=== PATIENT | female | born 1945 | race Hispanic/Latino ===

== ENCOUNTER 2017-06-03 07:34 | Outpatient (CLI) | payer MEDICARE ==
--- NOTE | 2017-06-03 11:45 | PET ---
PET CT: HISTORY: 72-year-old female with right breast cancer. Exam requested for restaging. Patient also has a history of thyroid cancer, status post ablation. Patient's last chemotherapy was a week ago. TECHNIQUE: PET scanning with CT attenuation correction was performed from the base of the brain through the prox imal thighs following the intravenous administration of 12.5 mCi F18-FDG in the right antecubital fos sa. Imaging was performed after an uptake interval of 59 minutes. COMPARISON: PET CT dated 12/29/16. FINDINGS: No peter hypermetabolism is seen in the axilla, internal mammary, hilar, mediastinal, cervical, or ab dominopelvic lymph nodes. No hypermetabolic pulmonary nodules, liver, adrenal, or skeletal lesions ar e identified. The previously noted foci of increased FDG localization in the skeleton have resolved in the interim. There is physiologic activity in the GI and tracts, and the visualized portions of the brain. The focally increased uptake inferior to the bladder is likely a urethral diverticulum. The CT scan used for attenuation correction demonstrates no evidence of pleural effusions or ascites. There is fatty infiltration of the liver. Postop changes in the right breast and large pelvic mass ( without abnormal FDG localization) remain stable. IMPRESSION: No evidence of metastatic disease. Excellent response to therapy since 12/30/16. POS: [facility]
== END 2017-06-03 07:35 | disposition home or self-care (01) ==
LOC: PET 07:34
PROVIDERS: ATTEND Internal Medicine Hematology & Oncology
DX: C50.811 Malignant neoplasm of overlapping sites of right female breast (principal)
CPT/HCPCS: 78815; A9552

== ENCOUNTER 2017-08-19 08:06 | Day surgery (SDC) | payer MEDICARE ==
[2017-08-19] MEDS ORDERED: Sodium Chloride 0.9% 40 ML ONE (08:23)
[2017-08-19] MEDS ORDERED: Acetaminophen 500 MG TAB PO SCH (08:30)
[2017-08-19] MEDS ORDERED: diphenhydrAMINE 25 MG CAP PO SCH (08:30)
[2017-08-19 11:39] LABS: Hemoglobin 8.2 g/dL (12.0-16.0)
[2017-08-19 17:09] VITALS: BP 146/68; TEMP 98.5
== END 2017-08-19 17:09 | disposition home or self-care (01) ==
LOC: ONC/OP 08:06
PROVIDERS: ATTEND Internal Medicine Hematology & Oncology
PROC: 30233N1 Transfusion of Nonautologous Red Blood Cells into Peripheral Vein, Percutaneous Approach (ICD-10-PCS; principal; 2017-08-19)
DX: D64.9 Anemia, unspecified (principal); D69.6 Thrombocytopenia, unspecified
CPT/HCPCS: 36430; 77412; 85014; 85018; 86850; 86900; 86901; A4216; P9016

== ENCOUNTER 2017-08-22 23:11 | Inpatient (IN) | payer MEDICARE ==
--- NOTE | 2017-08-22 23:39 | RAD ---
PORTABLE CHEST ONE VIEW: Date: 08-22-17 Time: 11:23 a.m. History: Fever. FINDINGS: Comparison is made with exam of 02-14-13. The heart size is normal. There is a left subclavian central line with tip in the direction of the le ft brachiocephalic vein and SVC. No pneumothoraces are seen. There is no evidence of lobar consolidat ion or pleural effusions. IMPRESSION: No acute process. POS: [facility]
[2017-08-23 00:28] LABS: Hemoglobin 8.7 g/dL (12.0-16.0); Mean Corpuscular HGB CONC 35.4 g/dL (32.0-36.0); Mean Corpuscular Hemoglobin 31.5 pg (27.0-31.0); RBC Distribution Width 19.8 % (11.5-14.5); Red Blood Cell (RBC) Count 2.77 mill/uL (4.20-5.40); White Blood Cell (WBC) Count 2.2 thou/uL (4.8-10.8)
[2017-08-23 00:34] LABS: #Lymphocytes 0.5 thou/uL (1.20-3.40); #Monocytes 0.2 thou/uL (0.11-0.59); #Neutrophils 1.4 thou/uL (1.40-6.50); %Basophils 0.8 % (0.0-1.0); %Eosinophils 1.8 % (0.0-10.0); %Lymphocytes 23.4 % (21.0-51.0); %Monocytes 7.7 % (0.0-10.0); %Neutrophils 66.3 % (42.0-75.0); Mean Platelet Volume 13.8 fL (7.4-10.4); Platelet Count 17 thou/uL (130-400)
[2017-08-23 00:36] LABS: ALT (SGPT) 68 U/L (8-55); AST (SGOT) 171 U/L (5-34); Albumin 3.2 g/dL (3.4-4.8); Alkaline Phosphatase 124 U/L (40-150); Anion Gap 13 mmol/L (10-20); BUN (Urea Nitrogen) 22 mg/dL (9.8-20.1); Bilirubin, Total 0.4 mg/dL (0.2-1.2); Calc. Creatinine Clearance 0 mL/min (70-130); Carbon Dioxide 17 mmol/L (23-31); Chloride 106 mmol/L (98-107); Estimated GFR-MDRD 48; Globulin 5.2 g/dL (2.4-3.5); Glucose 123 mg/dL (80-115); Lipase 37 U/L (8-78); Magnesium 1.5 mg/dL (1.6-2.6); Potassium 3.9 mmol/L (3.5-5.1); Protein, Total 8.4 g/dL (6.0-8.3); Sodium 132 mmol/L (136-145)
[2017-08-23 00:40] LABS: Troponin I 0.092 ng/mL (< 0.028)
[2017-08-23 00:50] LABS: PLT Morphology Comment Appears Decreased
[2017-08-23 01:01] LABS: CKMB 9.4 ng/mL (0-6.6)
[2017-08-23] MEDS ORDERED: Cefepime 2 GM/10 ML SYR ONE (01:48)
[2017-08-23 01:58] LABS: Bilirubin Negative (Negative); Blood, Urine Moderate (Negative); Glucose, Urine (Dipstick) Negative (Negative); Leukocyte Trace (Negative); Nitrite Negative (Negative); Protein, Urine (Dipstick) 30 mg/dL (Neg-Trace); Specific Gravity, Urine 1.025 (1.005-1.030); Urobilinogen 0.2 mg/dL (0.2-1.0)
[2017-08-23 01:59] LABS: Bacteria/HPF Rare-Few HPF (None Seen); Clarity Hazy (Clear); Other Microscopic Description Less than 2 mL rec'd; RBC/HPF 0-3 HPF (0-3); WBC/HPF 0-3 HPF (0-3)
[2017-08-23] MEDS ORDERED: Ondansetron ODT 4 MG TAB SL PRN (03:44)
[2017-08-23] MEDS ORDERED: Acetaminophen 325 MG TAB PO PRN (03:44)
[2017-08-23] MEDS ORDERED: Ondansetron HCl/PF 4 MG/2 ML Vial IVP PRN (03:44)
[2017-08-23] MEDS: Sodium Chloride 0.9% 1,000 ML IV SCH ×3 (03:59→23:21)
[2017-08-23 04:39] VITALS: BMI 29.7
[2017-08-23] MEDS: HYDROcodone/Acetaminophen 5/325 mg Tablet PO PRN (05:19)
[2017-08-23] MEDS: Levothyroxine Sodium 125 MCG TAB PO SCH (05:21)
[2017-08-23 06:01] LABS: Troponin I 0.073 ng/mL (< 0.028)
[2017-08-23 06:05] LABS: CKMB 27.5 ng/mL (0-6.6)
[2017-08-23] MEDS: Dronabinol 2.5 MG CAP PO SCH ×2 (07:53→18:30)
[2017-08-23] MEDS ORDERED: Cefepime 2 GM in Sodium Chloride 0.9% 100 ML IVPB SCH (09:00)
[2017-08-23] MEDS: Famotidine 20 MG TAB PO SCH ×2 (09:11→20:09)
[2017-08-23] MEDS: Docusate 100 MG CAP PO SCH ×2 (09:11→20:09)
--- NOTE | 2017-08-23 10:59 | RAD ---
THREE VIEWS OF THE RIGHT SHOULDER: Indication: Right shoulder pain. Comparison: None. FINDINGS: There is moderate AC joint osteoarthrosis. There is mild glenohumeral osteoarthrosis. There are metal lic snaps that overlie the distal right clavicle and superior glenoid. There is partial visualization of a left subclavian central venous catheter. Visualized right lung is clear. IMPRESSION: 1. No acute osseous abnormality. 2. AC and glenohumeral joint osteoarthrosis. POS: [facility]
--- NOTE | 2017-08-23 11:11 | RAD ---
THREE VIEWS OF THE LEFT SHOULDER: INDICATION: Left shoulder pain. FINDINGS: There is mild to moderate AC joint osteoarthrosis. There is mild glenohumeral osteoarthrosis. There is osteopenia involving the visualized skeletal structures. There is a left subclavian chest wall p ort in place. Visualized left lung is clear. IMPRESSION: 1. No acute osseous abnormality. 2. Diffuse osteopenia. POS: [facility]
--- NOTE | 2017-08-23 12:37 | HP ---
CHIEF COMPLAINT: Generalized body aches and pains and fall. PRIMARY CARE PHYSICIAN: Dar Wood MD HISTORY OF PRESENT ILLNESS: The patient is a very pleasant 72-year-old female with a history of ja st cancer status post chemo and recent radiation, her last radiation dose was last Wednesday, who presen david to the hospital for generalized weakness and fall. The patient states that she went to the bathr oom and could not get herself up and kind of fell down to her knees. The patient also states that ness moore has been having body aches and pains all over. Denies any fevers at home; however, did say that ness moore did have some chills. Denies any shortness of breath or chest pain or chest pressure. The patient states that she has not been eating well for the past few months, does not have much of an appetite. The patient normally in a day eats a bowl of cereal and a bowl of fruit. She also has been having decreased urine output according to her. The patient lives with a friend. The patient states that s he has noticed her clothes are much more looser than what they used to be. In the ER, the patient was found to have a temperature of 102.9; however, the source of her temperatu re seems to be unclear. PAST MEDICAL HISTORY: 1. Hypertension. 2. History of breast cancer. 3. Diverticulitis and thyroid cancer. PAST SURGICAL HISTORY: She has surgical cholecystectomy and thyroidectomy. SOCIAL HISTORY: She denies any drinking alcohol, smoking, or drug use. ALLERGIES: She has no known allergies. CURRENT MEDICATIONS: She takes Choudrant 5/325 mg one tab every 4-6 hours p.r.n., fentanyl patch changed every 72 hours 25 mcg, Compazine 10 mg q.6 hours p.r.n. for nausea, tramadol 50 mg q.8 hours p.r.n., potassium chloride 10 mEq daily, levothyroxine 125 mcg daily, and Motrin 600 mg as needed. PHYSICAL EXAMINATION: VITAL SIGNS: Temperature in the ER was 99.3, respirations 21, pulse of 89, blood pressure of 125/63, and 99% on room air. GENERAL: She is awake, alert, does appear little malnourished, oriented x3. CARDIOVASCULAR: S1, S2 present. No murmurs, rubs or gallops. RESPIRATORY: Lungs clear to auscultation. No rhonchi or wheezes noted. ABDOMEN: Soft, nontender. Bowel sounds present x2. EXTREMITIES: No edema. HEENT: She does have some temporal wasting. Mucous membranes appear to be dry. LABORATORY DATA: Are as the following: Urine appeared to be pretty relatively normal. Chemistry: Sodium of 132, potassium of 3.9, BUN of 22, creatinine of 1.13. Troponin was mildly elevated at 0.09 2. Magnesium was 1.5. WBCs of 2.2, hemoglobin of 8.7, hematocrit of 24.6, platelets of 17,000. No bands were noted. She had an x-ray which appeared very clear on examination. She had an EKG done, w hich did not indicate any ST abnormalities. ASSESSMENT AND PLAN: The patient is a 72-year-old female who presents to the hospital with fall and generalized weakness. 1. Dehydration. We will start the patient on some gentle IV hydration. 2. Acute kidney injury. We are hoping that the gentle hydration will resolve the acute kidney injur y most likely it is prerenal. We will continue to monitor. 3. Malnutrition. The patient states that she does not have an appetite. We will consult palliative care for symptom management for this patient. Also, we will start patient on Marinol for appetite s timulation. She has not been eating very much. 4. Fever, unclear source. Chest x-ray does not indicate any acute process. Urine looks pretty franco r. She also was swabbed for flu, which was negative. I will start her on empiric antibiotics of cef epime for now. She did complain of some bilateral shoulder pain. We will check x-rays to make sure that there are no abnormalities and the patient does not have any diarrhea either. We will continue to monitor. 5. Pancytopenia. Platelets from her baseline has worsened, they are 17,000 now. We will type and s creen and give her bag of platelets. We will also consult Oncology. The patient currently is not ne utropenic, so she is pancytopenic. We will continue to monitor. 6. Deep venous thrombosis prophylaxis. We will put patient on sequential compression devices and al so we will get physical therapy to come evaluate this patient for possible, she will might need some inpatient rehab; however, her generalized weakness could just be most likely secondary to her malnutr ition. The patient is a DNR.
--- NOTE | 2017-08-23 13:04 | PDOC.PN ---
- Subjective Encounter Start Date: 08/23/17 Encounter Start Time: 13:02 Patient seen and examined. No acute event since admit. She denies any chest pain and no elevated temperature reported. Per nurse, abnormal troponin withou chest pain, low platelets without bleeding, no fever. - Objective Resuscitation Status: Resuscitation Status DNR:Do Not Resuscitate MAR Reviewed: Yes Vital Signs & Weight: Vital Signs (12 hours) Temp Pulse Pulse Resp BP BP Pulse Ox 08/23/17 07:20 98.0 F 76 22 H 145/65 H 95 08/23/17 06:25 98.3 F 80 18 120/56 L 08/23/17 05:42 97.9 F 18 156/72 H 98 08/23/17 05:08 99.0 F 80 16 132/61 98 08/23/17 04:00 97.9 F 83 18 98 08/23/17 03:40 97.9 F 83 18 127/60 98 Weight Admit Weight 179 lb Weight 179 lb I&O: 08/22/17 08/23/17 08/24/17 06:59 06:59 06:59 Intake Total 250 Balance 250 Result Diagrams: 08/22/17 23:47 08/22/17 23:47 Radiology Reviewed by me: Yes EKG Reviewed by me: Yes (No ST or T wave changes) Phys Exam - Physical Examination Constitutional: NAD Patient cooperative, oriented x 3 HEENT: PERRLA, moist MMs, sclera anicteric, oral pharynx no lesions Neck: no nodes, no JVD, supple, full ROM Respiratory: no wheezing, no rales, no rhonchi, clear to auscultation bilateral Cardiovascular: RRR, no significant murmur, no rub Gastrointestinal: soft, non-tender, no distention, positive bowel sounds Musculoskeletal: no edema, pulses present full ROM Psychiatric: normal affect, A&O x 3 Skin: no rash, normal turgor, cap refill <2 seconds -: General pallor Dx/Plan (1) Fever and neutropenia Code(s): D70.9 - NEUTROPENIA, UNSPECIFIED; R50.81 - FEVER PRESENTING WITH CONDITIONS CLASSIFIED ELSEWHERE Status: Acute Plan: Blood cultures obtained. Continue Cefepime. Will defer neupogen to oncology. (2) KENROY (acute kidney injury) Code(s): N17.9 - ACUTE KIDNEY FAILURE, UNSPECIFIED Status: Acute Plan: Due to dehydration. Continue gentle IVF, monitor GFR and adjust meds to GFR. Avoid nephrotoxins (3) Dehydration Code(s): E86.0 - DEHYDRATION Status: Acute Plan: No clear etiology. Continue AVF (4) Thrombocytopenia Code(s): D69.6 - THROMBOCYTOPENIA, UNSPECIFIED Status: Chronic Plan: Acute on chronic. Likely chemo induced. No evidence of bleeding. Transfuse as needed. (5) Pancytopenia due to chemotherapy Code(s): D61.810 - ANTINEOPLASTIC CHEMOTHERAPY INDUCED PANCYTOPENIA Status: Chronic Plan: Chemo induced. (6) Low TSH level Code(s): R94.6 - ABNORMAL RESULTS OF THYROID FUNCTION STUDIES Status: Acute Plan: Sick thyroid syndrome or subclinical hyperthyroid. Will check FT4 (7) Elevated troponin I level Code(s): R74.8 - ABNORMAL LEVELS OF OTHER SERUM ENZYMES Status: Acute Plan: No chest pain. Likely radiotherapy induced. (8) Hyponatremia Code(s): E87.1 - HYPO-OSMOLALITY AND HYPONATREMIA Status: Acute Plan: Due to dehydration. Monitor. (9) Hyperglycemia Code(s): R73.9 - HYPERGLYCEMIA, UNSPECIFIED Status: Acute Plan: Not clear. No h/o diabetes. Check A1c (10) Metastatic breast carcinoma Code(s): C50.919 - MALIGNANT NEOPLASM OF UNSP SITE OF UNSPECIFIED FEMALE BREAST Status: Chronic Plan: Poor alf prognosis (11) Moderate protein-calorie malnutrition Code(s): E44.0 - MODERATE PROTEIN-CALORIE MALNUTRITION Status: Chronic Plan: Due to chronic illness. (12) Elevated liver enzymes Code(s): R74.8 - ABNORMAL LEVELS OF OTHER SERUM ENZYMES Status: Acute Plan: Not clear. Monitor liver enzymes. (13) Near syncope Status: Acute Plan: Not clear etiology. PT acute evaluation. - Plan See above individual plans. Continue current care. Discussed with patient. * . Code: DNR Core; SCDs due to thrombocytopenia Disposition; medical unit. Prognosis; long term care pharmacist poor Expected discharge; to be determined Total time spent; 35 minutes
[2017-08-23] MEDS: Cefepime 2 GM, Syringe 2.5 ML in Sodium Chloride 0.9% 10 ML SLOW IVP SCH (14:37)
[2017-08-23] MEDS: traMADol HCl 50 MG TAB PO PRN (14:40)
--- NOTE | 2017-08-23 16:11 | CON ---
DATE OF CONSULTATION: 08/23/2017 REASON FOR CONSULTATION: Breast cancer. HISTORY OF PRESENT ILLNESS: Ms. Green is a 72-year-old female who was diagnosed with met astatic breast cancer in 12/2012. She has undergone multiple chemo treatments, her last being weekly Taxol which ended in 05/2017. She had initial improvement confirmed by PET, but developed several s mall nodules in the right breast. She was started on radiation to her breast. She developed pancyto penia after the initiation of radiation and has not yet recovered. She was last seen in our office o n 08/16/2017 where her white count was 3. Her hemoglobin was 7.1 and her platelet count was 25,000. She was transfused 1 unit of packed rbc's. Over the weekend, she began to have generalized aches an d pains with a fever up to 102. She presented to the emergency room for evaluation. Lab done in the ER showed an ANC of 1.4. She was afebrile on admission. She did receive a dose of vancomycin and i s currently on cefepime. Her chemistry showed a mildly elevated creatinine. The patient has had ext remely poor appetite over the last few weeks with several pound weight loss. She was admitted for IV fluids and is feeling better. Her platelets were 17,000 on admission. She has received a unit of p latelets this morning. She denies any chest pain or shortness of breath. No abdominal discomfort. No GI bleeding. She does complain of a headache. She states that her left arm is slightly weaker th an her right, but no blurred vision. No facial droop noted. PAST MEDICAL HISTORY: 1. Metastatic breast cancer. 2. Hypertension. 3. Hypothyroidism. PAST SURGICAL HISTORY: 1. Cholecystectomy. 2. MediPort placement. 3. Right hand surgery. 4. 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 ALLERGIES: No known drug allergies. HOME MEDICATIONS: 1. Amlodipine 5 mg daily. 2. Duragesic 25 mcg every 3 days. 3. Synthroid 125 mcg daily. 4. Tramadol p.r.n. pain. FAMILY HISTORY: Her sister had thyroid cancer. No family history of breast or ovarian cancer. SOCIAL HISTORY: Single, lives with her boyfriend, has 3 children. No smoking, alcohol or illicit dr ug use. REVIEW OF SYSTEMS: Twelve point review of systems is negative except for noted in HPI. PHYSICAL EXAMINATION: VITAL SIGNS: Temperature is 97.9 with T-max of 99 since admission, heart rate is 97, respiratory rat e 18, BP is 173/74. She is 93% on room air. GENERAL: Well-developed, well-nourished female in no acute distress. HEENT: Normocephalic, atraumatic. Pupils equal and reactive to light. NECK: Supple. CARDIOVASCULAR: Regular rate and rhythm. LUNGS: Clear. ABDOMEN: Soft, nontender, bowel sounds are positive. EXTREMITIES: No clubbing, cyanosis or edema. SKIN: She has radiation changes to her right breast. HEMATOLOGIC: No petechia or purpura. NEUROLOGICAL: Nonfocal. PSYCHIATRIC: The patient is alert and oriented. PERTINENT LABORATORY AND X-RAYS: Current WBCs 2.2, hemoglobin 8.7, hematocrit 24.6, platelet count i s 17,000 prior to transfusion. Neutrophils are 66%, lymphocytes 23%. Her ANC is 1.4. Sodium 132, p otassium 3.9, chloride 106, CO2 is 17, BUN is 22, creatinine 1.13, magnesium is 1.5. Lactic acid 1.4 , calcium 10, total bilirubin is 0.4, AST is 171, ALT 68, alkaline phosphatase is 124. Serum total p rotein 8.4, albumin 3.2, globulin 5.2 and CK-MB is 27.5, troponin 0.073. Radiology per HPI. IMPRESSION: 1. Metastatic breast cancer on recently completed radiation. 2. Pancytopenia secondary to #1. 3. Dehydration. 4. Acute kidney injury. DISCUSSION: The patient has been started on IV fluids. She has been given a unit of platelets. She does feel better today, her only complaint is headache and some left arm weakness. We will just claude ck a brain CT and continue supportive care. Thank you for the consult.
--- NOTE | 2017-08-23 17:08 | CT ---
CT BRAIN WITH AND WITHOUT CONTRAST: INDICATIONS: History of breast cancer and headaches. CONTRAST: Isovue 70 mL was utilized for the exam. COMPARISON: Comparisons are available from a CT of the brain without contrast, dated 02/04/2013. TECHNIQUE: Multiple CT images were obtained of the brain with and without contrast. FINDINGS: No definite acute infarct, hemorrhage, or hydrocephalus is present. The septum pellucidum and third ventricle are midline. There is a 1.3 cm extraaxial enhancing mass lesion overlying the right fronta l convexity, on image 17 of series 4. No additional focus of abnormal enhancement is demonstrated. IMPRESSION: Extraaxial enhancing mass lesion overlying the right frontal convexity, measuring up to 1.3 cm. Appe ars new from comparison in 2012. In light of the patient's history of breast malignancy, dural based metastatic disease cannot be entirely excluded. Recommend further evaluation with MRI brain with an d without contrast. CODE T POS: [facility]
[2017-08-23] MEDS ORDERED: Iopamidol 370 76% 100 ML VIAL ONE (17:50)
[2017-08-24] MEDS: Cefepime 2 GM, Syringe 2.5 ML in Sodium Chloride 0.9% 10 ML SLOW IVP SCH ×2 (01:10→14:13)
[2017-08-24] MEDS: Levothyroxine Sodium 125 MCG TAB PO SCH (05:00)
[2017-08-24 06:32] LABS: Hemoglobin 7.3 g/dL (12.0-16.0); Hemoglobin A1c 5.7 % (4.0-6.0); Mean Corpuscular HGB CONC 35.4 g/dL (32.0-36.0); Mean Corpuscular Hemoglobin 31.7 pg (27.0-31.0); Mean Corpuscular Volume 89.5 fl (81.0-99.0); Mean Platelet Volume 9.9 fL (7.4-10.4); Platelet Count 48 thou/uL (130-400); RBC Distribution Width 19.8 % (11.5-14.5); Red Blood Cell (RBC) Count 2.31 mill/uL (4.20-5.40); White Blood Cell (WBC) Count 1.9 thou/uL (4.8-10.8)
[2017-08-24 06:45] LABS: ALT (SGPT) 75 U/L (8-55); AST (SGOT) 175 U/L (5-34); Albumin 2.9 g/dL (3.4-4.8); Alkaline Phosphatase 94 U/L (40-150); Anion Gap 11 mmol/L (10-20); BUN (Urea Nitrogen) 12 mg/dL (9.8-20.1); Bilirubin, Total 0.5 mg/dL (0.2-1.2); Calc. Creatinine Clearance 95 mL/min (70-130); Calcium 9.9 mg/dL (7.8-10.44); Carbon Dioxide 17 mmol/L (23-31); Chloride 108 mmol/L (98-107); Estimated GFR-MDRD 81; Globulin 4.7 g/dL (2.4-3.5); Glucose 128 mg/dL (80-115); Potassium 3.2 mmol/L (3.5-5.1); Protein, Total 7.6 g/dL (6.0-8.3); Sodium 133 mmol/L (136-145)
[2017-08-24] MEDS: Potassium Chloride 20 MEQ TAB PO SCH ×2 (09:01→17:43)
[2017-08-24] MEDS: Famotidine 20 MG TAB PO SCH ×2 (09:01→21:01)
[2017-08-24] MEDS: Docusate 100 MG CAP PO SCH ×2 (09:02→21:03)
[2017-08-24] MEDS: Amlodipine 5 MG TAB PO SCH (09:02)
[2017-08-24] MEDS: Dronabinol 2.5 MG CAP PO SCH ×2 (09:02→18:37)
[2017-08-24 09:31] LABS: Band 24 % (5-11); Lymphocytes 26 % (21-51); MDiff Complete? YES; Monocytes 4 % (0-10); Neutrophil 46 % (42-75); PLT Morphology Comment Appears Decreased; Polychromasia SLIGHT = 2-3 cells (100X) (0-2/hpf); Rouleaux Formation SLIGHT = 1-5 cells (100X) (None Seen)
--- NOTE | 2017-08-24 10:19 | PDOC.PN ---
- Subjective Encounter Start Date: 08/24/17 Encounter Start Time: 10:25 Subjective: Patient has no complaints today and no acute events overnight. -: She denies any febrile episodes and reports feeling better today. - Objective Resuscitation Status: Resuscitation Status DNR:Do Not Resuscitate MAR Reviewed: Yes Vital Signs & Weight: Vital Signs (12 hours) Temp Pulse Resp BP BP Pulse Ox 08/24/17 09:02 82 144/65 H 08/24/17 07:35 98.4 F 82 16 144/65 H 94 L 08/24/17 03:52 99.5 F 08/23/17 23:47 99.7 F H 91 16 137/68 98 Weight Admit Weight 179 lb Weight 179 lb I&O: 08/23/17 08/24/17 08/25/17 06:59 06:59 06:59 Intake Total 250 480 Balance 250 480 Result Diagrams: 08/24/17 06:16 08/24/17 06:16 Phys Exam - Physical Examination Constitutional: NAD HEENT: PERRLA, moist MMs, sclera anicteric, oral pharynx no lesions Neck: no JVD, supple, full ROM Respiratory: no wheezing, no rales, no rhonchi, clear to auscultation bilateral Cardiovascular: RRR, no significant murmur, no rub Gastrointestinal: soft, non-tender, no distention, positive bowel sounds Musculoskeletal: no edema, pulses present Neurological: non-focal, moves all 4 limbs Psychiatric: normal affect, A&O x 3 Skin: no rash, normal turgor Dx/Plan (1) Fever and neutropenia Code(s): D70.9 - NEUTROPENIA, UNSPECIFIED; R50.81 - FEVER PRESENTING WITH CONDITIONS CLASSIFIED ELSEWHERE Status: Acute Comment: Afebrile, Cultures negative. Continue Cefepime. Might need Neupogen (2) Pancytopenia due to chemotherapy Code(s): D61.810 - ANTINEOPLASTIC CHEMOTHERAPY INDUCED PANCYTOPENIA Status: Chronic Comment: Acute on chronic, likely worsened by neutropenic fever. Has received platelet transfusion. Platelet count improved today. Will continue to monitor. (3) Elevated liver enzymes Code(s): R74.8 - ABNORMAL LEVELS OF OTHER SERUM ENZYMES Status: Acute Comment: Likely 2/2 underlying malignant process. Will monitor. (4) Hyponatremia Code(s): E87.1 - HYPO-OSMOLALITY AND HYPONATREMIA Status: Acute Comment: Slightly improved. Will monitor. (5) Low TSH level Code(s): R94.6 - ABNORMAL RESULTS OF THYROID FUNCTION STUDIES Status: Acute Comment: Free T4 WNL. (6) Metastatic breast carcinoma Code(s): C50.919 - MALIGNANT NEOPLASM OF UNSP SITE OF UNSPECIFIED FEMALE BREAST Status: Chronic (7) Moderate protein-calorie malnutrition Code(s): E44.0 - MODERATE PROTEIN-CALORIE MALNUTRITION Status: Chronic Comment: Continue nutritional supplements. (8) KENROY (acute kidney injury) Code(s): N17.9 - ACUTE KIDNEY FAILURE, UNSPECIFIED Status: Resolved (9) Dehydration Code(s): E86.0 - DEHYDRATION Status: Resolved (10) Hypokalemia Code(s): E87.6 - HYPOKALEMIA Status: Acute Comment: Replete as necessary. (11) Near syncope Status: Resolved (12) Elevated troponin I level Code(s): R74.8 - ABNORMAL LEVELS OF OTHER SERUM ENZYMES Status: Acute Comment: Trending down, likely 2/2 renal dysfunction. Remains chest pain free, - Plan cont current plan of care, PT/OT, out of bed/ambulate, DVT proph w/SCDs * . Review of Systems - Medications/Allergies Allergies/Adverse Reactions: Allergies Allergy/AdvReac Type Severity Reaction Status Date / Time No Known Allergies Allergy Verified 08/23/17 04:37 Medications: Current Medications Hydrocodone Bitart/Acetaminophen (Gilliam 5/325) 1 tab PO Q6H PRN PRN Reason: Pain 4-6 Last Admin: 08/23/17 05:19 Dose: 1 tab Amlodipine Besylate (Norvasc) 5 mg PO DAILY [facility] Last Admin: 08/24/17 09:02 Dose: 5 mg Docusate Sodium (Colace) 100 mg PO BID [facility] Last Admin: 08/24/17 09:02 Dose: 100 mg Dronabinol (Marinol) 2.5 mg PO BID-AC [facility] Last Admin: 08/24/17 09:02 Dose: 2.5 mg Famotidine (Pepcid) 20 mg PO BID [facility] Last Admin: 08/24/17 09:01 Dose: 20 mg Fentanyl (Duragesic) 25 mcg TD Q3D [facility] Last Admin: 08/23/17 09:13 Dose: 25 mcg Cefepime HCl 2 gm/ Syringe 2.5 (ml/ Sodium Chloride) 12.5 mls @ 150 mls/hr SLOW IVP 0200,1400 [facility] Last Admin: 08/24/17 01:10 Dose: 12.5 mls Sodium Chloride (Normal Saline 0.9%) 1,000 mls @ 50 mls/hr IV .Q20H [facility] Last Admin: 08/23/17 23:21 Dose: 1,000 mls Levothyroxine Sodium (Synthroid) 125 mcg PO 0600 [facility] Last Admin: 08/24/17 05:00 Dose: 125 mcg Potassium Chloride (K-Dur) 40 meq PO BID-WM [facility] Stop: 08/25/17 08:01 Last Admin: 08/24/17 09:01 Dose: 40 meq Sodium Chloride (Flush - Normal Saline) 10 ml IVF Q12HR [facility] Sodium Chloride (Flush - Normal Saline) 10 ml IVF PRN PRN PRN Reason: Saline Flush Tramadol HCl (Ultram) 50 mg PO Q8H PRN PRN Reason: Pain 4-6 Last Admin: 08/23/17 14:40 Dose: 50 mg
[2017-08-24] MEDS ORDERED: Gadobenate Dimeglumine 529 MG/1 ML (20ML VIAL) ONE (13:18)
[2017-08-24] MEDS: Sodium Chloride 0.9% 1,000 ML IV SCH (14:13)
--- NOTE | 2017-08-24 14:55 | MRI ---
MRI BRAIN WITH AND WITHOUT IV CONTRAST: 08/24/2017 HISTORY: Right extraaxial mass noted on CT examination. Patient with history of breast cancer, currently on r adiation therapy. The patient complains of new onset headaches for two to three days. The patient f ell one day ago. COMPARISON: Study from 07/09/2014, as well as CT head from 08/23/2017. FINDINGS: Again noted is diffusely decreased T1 weighted signal intensity throughout the bone marrow, including the calvarium and upper cervical spine, again likely related to a marrow infiltrative process. As noted on the prior exam, there is diffuse pachymeningeal enhancement. There is mention of a mass- like lesion on recent CT scan examination, in the right anterolateral frontal region. However, this appears to represent more prominent dural-based enhancement. This finding, as well as the pachymenin geal enhancement, is thought to be related to the diffuse osseous metastatic disease. No enhancing parenchymal brain lesion is identified. The previously described area of asymmetric enhancement involving the Meckel's cave on the right is l ess apparent on today's examination. No new areas of enhancement are seen. There is no mass effect or midline shift. The ventricular system is normal in size, shape, and posit ion. There are scattered punctate areas of increased FLAIR and T2 weighted signal intensity seen within th e periventricular and subcortical white matter, also present on the prior study and, while overall no nspecific, are likely attributable to chronic small vessel ischemic changes. There is no evidence of an acute infarction. There is a stable appearance of the bilateral parotid glands, which remain enlarged, with suggestion of diffuse tiny T2 signal hyperintensities throughout each parotid gland. The paranasal sinuses and orbits have a normal MRI appearance. No other interval change. IMPRESSION: 1. The previously noted enhancing lesion at the right aspect of Meckel's cave is not visualized on t his examination, some of which could be related to the lack of thin section post contrast imaging. H owever, there does remain diffuse pachymeningeal enhancement, which may be related to metastatic dise ase. 2. There was mention of an enhancing mass along left frontal calvarium on recent CT scan examination . There is also prominence of the calvarium in this region, and this is thought to most likely be at tributable to pachymeningeal enhancement, adjacent to prominence of the calvarium; however, a small m eningioma in this region cannot be entirely excluded. This small area of asymmetric enhancement does measure 1.3 cm. No intraaxial areas of abnormal enhancement are seen. 3. Sjogren's disease. 4. Marrow infiltrative process, likely related to metastatic disease, given the patient's history an d imaging findings on prior exam. POS: [facility]
[2017-08-25] MEDS: Cefepime 2 GM, Syringe 2.5 ML in Sodium Chloride 0.9% 10 ML SLOW IVP SCH ×2 (01:54→13:38)
[2017-08-25 05:29] LABS: ALT (SGPT) 74 U/L (8-55); AST (SGOT) 133 U/L (5-34); Albumin 2.9 g/dL (3.4-4.8); Alkaline Phosphatase 88 U/L (40-150); Bilirubin, Direct 0.3 mg/dL (0.1-0.3); Bilirubin, Total 0.5 mg/dL (0.2-1.2); Protein, Total 7.7 g/dL (6.0-8.3)
[2017-08-25 05:35] LABS: ALT (SGPT) 74 U/L (8-55); AST (SGOT) 136 U/L (5-34); Albumin 2.9 g/dL (3.4-4.8); Alkaline Phosphatase 89 U/L (40-150); Anion Gap 12 mmol/L (10-20); BUN (Urea Nitrogen) 10 mg/dL (9.8-20.1); Bilirubin, Total 0.5 mg/dL (0.2-1.2); Calc. Creatinine Clearance 96 mL/min (70-130); Calcium 10.8 mg/dL (7.8-10.44); Carbon Dioxide 18 mmol/L (23-31); Chloride 108 mmol/L (98-107); Estimated GFR-MDRD 83; Globulin 4.9 g/dL (2.4-3.5); Glucose 152 mg/dL (80-115); Potassium 3.3 mmol/L (3.5-5.1); Protein, Total 7.8 g/dL (6.0-8.3); Sodium 135 mmol/L (136-145)
[2017-08-25] MEDS: Levothyroxine Sodium 125 MCG TAB PO SCH (05:42)
[2017-08-25] MEDS: Sodium Chloride 0.9% 1,000 ML IV SCH ×2 (05:44→15:22)
[2017-08-25 05:52] LABS: Band 7 % (5-11); Eosinophils 3 % (0-10); Hemoglobin 7.2 g/dL (12.0-16.0); Lymphocytes 12 % (21-51); MDiff Complete? YES; Mean Corpuscular HGB CONC 34.9 g/dL (32.0-36.0); Mean Corpuscular Hemoglobin 31.3 pg (27.0-31.0); Mean Corpuscular Volume 89.6 fl (81.0-99.0); Mean Platelet Volume 9.7 fL (7.4-10.4); Monocytes 12 % (0-10); Neutrophil 66 % (42-75); PLT Morphology Comment Appears Decreased; Platelet Count 36 thou/uL (130-400); RBC Distribution Width 19.6 % (11.5-14.5); Red Blood Cell (RBC) Count 2.31 mill/uL (4.20-5.40); White Blood Cell (WBC) Count 2.1 thou/uL (4.8-10.8)
[2017-08-25] MEDS ORDERED: Magnesium 2 GM/NS 0.9% 50 ML 2 GM in Premix Bag 1 BAG IVPB SCH (07:45)
[2017-08-25] MEDS ORDERED: Magnesium 2 GM/NS 0.9% 100 ML 2 GM in Premix Bag 1 BAG IVPB SCH (08:45)
[2017-08-25] MEDS: Famotidine 20 MG TAB PO SCH ×2 (09:33→21:22)
[2017-08-25] MEDS: Docusate 100 MG CAP PO SCH ×2 (09:33→21:22)
[2017-08-25] MEDS: Amlodipine 5 MG TAB PO SCH (09:33)
[2017-08-25] MEDS: Potassium Chloride 20 MEQ TAB PO SCH (09:34)
[2017-08-25] MEDS: Dronabinol 2.5 MG CAP PO SCH ×2 (09:40→16:40)
--- NOTE | 2017-08-25 14:35 | PDOC.PN ---
- Subjective Encounter Start Date: 08/25/17 Encounter Start Time: 14:40 Subjective: No acute events overnight -: Remained afebrile -: Has no complaints. - Objective Resuscitation Status: Resuscitation Status DNR:Do Not Resuscitate MAR Reviewed: Yes Vital Signs & Weight: Vital Signs (12 hours) Temp Pulse Resp BP BP BP Pulse Ox 08/25/17 09:33 80 167/72 H 08/25/17 08:25 97.0 F L 80 16 97 08/25/17 08:20 97.0 F L 80 16 167/72 H 97 08/25/17 07:50 98.4 F 82 18 151/77 H 99 08/25/17 04:00 99.4 F 78 20 133/77 97 Weight Admit Weight 179 lb Weight 179 lb I&O: 08/24/17 08/25/17 08/26/17 06:59 06:59 06:59 Intake Total 480 1810 Balance 480 1810 Result Diagrams: 08/25/17 04:33 08/25/17 04:33 Phys Exam - Physical Examination Constitutional: NAD HEENT: PERRLA, moist MMs, sclera anicteric, oral pharynx no lesions Neck: no JVD, supple, full ROM Respiratory: no wheezing, no rales, no rhonchi, clear to auscultation bilateral Cardiovascular: RRR, no significant murmur, no rub Gastrointestinal: soft, non-tender, no distention, positive bowel sounds Musculoskeletal: no edema, pulses present Neurological: non-focal, moves all 4 limbs Psychiatric: normal affect, A&O x 3 Skin: no rash, normal turgor Dx/Plan (1) Fever and neutropenia Code(s): D70.9 - NEUTROPENIA, UNSPECIFIED; R50.81 - FEVER PRESENTING WITH CONDITIONS CLASSIFIED ELSEWHERE Status: Acute Comment: Afebrile, Cultures negative. Continue Cefepime. ANC improving. (2) Pancytopenia due to chemotherapy Code(s): D61.810 - ANTINEOPLASTIC CHEMOTHERAPY INDUCED PANCYTOPENIA Status: Chronic Comment: Acute on chronic, likely worsened by neutropenic fever. Has received platelet transfusion. No signs of active bleeding. Will continue to monitor. (3) Elevated liver enzymes Code(s): R74.8 - ABNORMAL LEVELS OF OTHER SERUM ENZYMES Status: Acute Comment: Likely 2/2 underlying malignant process. Trending downwards. (4) Hyponatremia Code(s): E87.1 - HYPO-OSMOLALITY AND HYPONATREMIA Status: Acute Comment: Slightly improved. Will monitor. (5) Low TSH level Code(s): R94.6 - ABNORMAL RESULTS OF THYROID FUNCTION STUDIES Status: Acute (6) Metastatic breast carcinoma Code(s): C50.919 - MALIGNANT NEOPLASM OF UNSP SITE OF UNSPECIFIED FEMALE BREAST Status: Chronic (7) Moderate protein-calorie malnutrition Code(s): E44.0 - MODERATE PROTEIN-CALORIE MALNUTRITION Status: Chronic Comment: Continue nutritional supplements. (8) Hypokalemia Code(s): E87.6 - HYPOKALEMIA Status: Acute Comment: Replete as necessary. (9) Elevated troponin I level Code(s): R74.8 - ABNORMAL LEVELS OF OTHER SERUM ENZYMES Status: Acute Comment: Trending down, likely 2/2 renal dysfunction. Remains chest pain free. (10) Hypomagnesemia Code(s): E83.42 - HYPOMAGNESEMIA Status: Acute Comment: Replete. (11) KENROY (acute kidney injury) Code(s): N17.9 - ACUTE KIDNEY FAILURE, UNSPECIFIED Status: Resolved - Plan cont current plan of care, continue antibiotics, out of bed/ambulate, DVT proph w/SCDs * . Review of Systems - Medications/Allergies Allergies/Adverse Reactions: Allergies Allergy/AdvReac Type Severity Reaction Status Date / Time No Known Allergies Allergy Verified 08/23/17 04:37 Medications: Current Medications Hydrocodone Bitart/Acetaminophen ([place] 5/325) 1 tab PO Q6H PRN PRN Reason: Pain 4-6 Last Admin: 08/23/17 05:19 Dose: 1 tab Amlodipine Besylate (Norvasc) 5 mg PO DAILY [facility] Last Admin: 08/25/17 09:33 Dose: 5 mg Docusate Sodium (Colace) 100 mg PO BID [facility] Last Admin: 08/25/17 09:33 Dose: 100 mg Dronabinol (Marinol) 2.5 mg PO BID-AC [facility] Last Admin: 08/25/17 09:40 Dose: 2.5 mg Famotidine (Pepcid) 20 mg PO BID [facility] Last Admin: 08/25/17 09:33 Dose: 20 mg Fentanyl (Duragesic) 25 mcg TD Q3D [facility] Last Admin: 08/24/17 13:30 Dose: 25 mcg Cefepime HCl 2 gm/ Syringe 2.5 (ml/ Sodium Chloride) 12.5 mls @ 150 mls/hr SLOW IVP 0200,1400 [facility] Last Admin: 08/25/17 13:38 Dose: 12.5 mls Sodium Chloride (Normal Saline 0.9%) 1,000 mls @ 50 mls/hr IV .Q20H [facility] Last Admin: 08/25/17 05:44 Dose: 1,000 mls Levothyroxine Sodium (Synthroid) 125 mcg PO 0600 [facility] Last Admin: 08/25/17 05:42 Dose: 125 mcg Sodium Chloride (Flush - Normal Saline) 10 ml IVF Q12HR [facility] Last Admin: 08/25/17 09:35 Dose: 10 ml Sodium Chloride (Flush - Normal Saline) 10 ml IVF PRN PRN PRN Reason: Saline Flush Tramadol HCl (Ultram) 50 mg PO Q8H PRN PRN Reason: Pain 4-6 Last Admin: 08/23/17 14:40 Dose: 50 mg
[2017-08-25] MEDS ORDERED: Zoledronic Acid 4 MG in Sodium Chloride 0.9% 100 ML IVPB SCH (16:15)
[2017-08-25] MEDS ORDERED: Aquaphor 30 GM JAR TOP PRN (22:02)
[2017-08-26] MEDS: Cefepime 2 GM, Syringe 2.5 ML in Sodium Chloride 0.9% 10 ML SLOW IVP SCH ×2 (03:07→16:39)
[2017-08-26 05:44] LABS: #Eosinphils 0.1 thou/uL (0.0-0.7); #Lymphocytes 0.5 thou/uL (1.20-3.40); #Monocytes 0.1 thou/uL (0.11-0.59); #Neutrophils 1.6 thou/uL (1.40-6.50); %Basophils 1.1 % (0.0-1.0); %Eosinophils 2.9 % (0.0-10.0); %Lymphocytes 22.1 % (21.0-51.0); %Monocytes 5.2 % (0.0-10.0); %Neutrophils 68.8 % (42.0-75.0); Hemoglobin 7.1 g/dL (12.0-16.0); Mean Corpuscular HGB CONC 33.8 g/dL (32.0-36.0); Mean Corpuscular Hemoglobin 30.6 pg (27.0-31.0); Mean Corpuscular Volume 90.6 fl (81.0-99.0); Mean Platelet Volume 10.2 fL (7.4-10.4); Platelet Count 40 thou/uL (130-400); RBC Distribution Width 19.7 % (11.5-14.5); White Blood Cell (WBC) Count 2.4 thou/uL (4.8-10.8)
[2017-08-26] MEDS: Sodium Chloride 0.9% 1,000 ML IV SCH (05:46)
[2017-08-26] MEDS: Levothyroxine Sodium 125 MCG TAB PO SCH (05:46)
[2017-08-26 05:58] LABS: ALT (SGPT) 72 U/L (8-55); AST (SGOT) 98 U/L (5-34); Albumin 3.1 g/dL (3.4-4.8); Alkaline Phosphatase 90 U/L (40-150); Bilirubin, Direct 0.2 mg/dL (0.1-0.3); Bilirubin, Total 0.5 mg/dL (0.2-1.2); Protein, Total 8.5 g/dL (6.0-8.3)
[2017-08-26 05:59] LABS: ALT (SGPT) 73 U/L (8-55); AST (SGOT) 98 U/L (5-34); Albumin 3.1 g/dL (3.4-4.8); Alkaline Phosphatase 90 U/L (40-150); Anion Gap 8 mmol/L (10-20); BUN (Urea Nitrogen) 12 mg/dL (9.8-20.1); Bilirubin, Total 0.5 mg/dL (0.2-1.2); Calc. Creatinine Clearance 97 mL/min (70-130); Calcium 11.8 mg/dL (7.8-10.44); Carbon Dioxide 21 mmol/L (23-31); Chloride 111 mmol/L (98-107); Estimated GFR-MDRD 84; Globulin 5.5 g/dL (2.4-3.5); Glucose 145 mg/dL (80-115); Potassium 3.2 mmol/L (3.5-5.1); Protein, Total 8.6 g/dL (6.0-8.3); Sodium 137 mmol/L (136-145)
[2017-08-26] MEDS ORDERED: Magnesium 2 GM/NS 0.9% 100 ML 2 GM in Premix Bag 1 BAG IVPB SCH ×2 (07:45→13:45)
[2017-08-26] MEDS: Amlodipine 5 MG TAB PO SCH (08:35)
[2017-08-26] MEDS: Famotidine 20 MG TAB PO SCH ×2 (08:35→21:15)
[2017-08-26] MEDS: Docusate 100 MG CAP PO SCH ×2 (08:35→21:15)
[2017-08-26] MEDS ORDERED: Polyethylene Glycol 3350 17 GM Packet PO SCH ×2 (09:00→11:30)
[2017-08-26] MEDS ORDERED: Amlodipine 5 MG TAB PO SCH (09:20)
[2017-08-26] MEDS ORDERED: Sodium Chloride 0.9% 500 ML IV SCH (09:30)
[2017-08-26] MEDS ORDERED: Potassium Chloride 20 MEQ TAB PO SCH (09:30)
[2017-08-26] MEDS: Dronabinol 2.5 MG CAP PO SCH ×2 (10:32→17:02)
[2017-08-26] MEDS ORDERED: Amlodipine 10 MG TAB PO SCH (11:30)
[2017-08-26] MEDS ORDERED: Potassium Chloride 20 MEQ/100 ML PREMIX BAG IVPB SCH (11:30)
--- NOTE | 2017-08-26 13:32 | PDOC.PN ---
- Subjective Encounter Start Date: 08/26/17 Encounter Start Time: 13:31 Subjective: Patient seen and examined for neutropenic fever and pancytopenia. -: Has no complaints today. -: No acute events overnight. - Objective Resuscitation Status: Resuscitation Status DNR:Do Not Resuscitate MAR Reviewed: Yes Vital Signs & Weight: Vital Signs (12 hours) Temp Pulse Resp BP Pulse Ox 08/26/17 08:35 109 H 176/78 H 08/26/17 08:00 98.5 F 109 H 16 100 Weight Admit Weight 179 lb Weight 179 lb I&O: 08/25/17 08/26/17 08/27/17 06:59 06:59 06:59 Intake Total 1810 250 Balance 1810 250 Result Diagrams: 08/26/17 05:20 08/26/17 05:20 Phys Exam - Physical Examination Constitutional: NAD HEENT: PERRLA, moist MMs, sclera anicteric, oral pharynx no lesions Neck: no JVD, supple, full ROM Respiratory: no wheezing, no rales, no rhonchi, clear to auscultation bilateral Cardiovascular: RRR, no significant murmur, no rub Gastrointestinal: soft, non-tender, no distention, positive bowel sounds Musculoskeletal: no edema, pulses present Neurological: non-focal, moves all 4 limbs Psychiatric: normal affect, A&O x 3 Skin: no rash, normal turgor Dx/Plan (1) Fever and neutropenia Code(s): D70.9 - NEUTROPENIA, UNSPECIFIED; R50.81 - FEVER PRESENTING WITH CONDITIONS CLASSIFIED ELSEWHERE Status: Acute Comment: Afebrile, Cultures negative. ANC continues to improve. (2) Pancytopenia due to chemotherapy Code(s): D61.810 - ANTINEOPLASTIC CHEMOTHERAPY INDUCED PANCYTOPENIA Status: Chronic Comment: Acute on chronic, likely worsened by neutropenic fever. Has received platelet transfusion. No signs of active bleeding. Transfuse w one unit of PRBC. (3) Elevated liver enzymes Code(s): R74.8 - ABNORMAL LEVELS OF OTHER SERUM ENZYMES Status: Acute Comment: Likely 2/2 underlying malignant process. Trending downwards. (4) Low TSH level Code(s): R94.6 - ABNORMAL RESULTS OF THYROID FUNCTION STUDIES Status: Acute Comment: Free T4 WNL. (5) Metastatic breast carcinoma Code(s): C50.919 - MALIGNANT NEOPLASM OF UNSP SITE OF UNSPECIFIED FEMALE BREAST Status: Chronic (6) Moderate protein-calorie malnutrition Code(s): E44.0 - MODERATE PROTEIN-CALORIE MALNUTRITION Status: Chronic Comment: Continue nutritional supplements. (7) Hypokalemia Code(s): E87.6 - HYPOKALEMIA Status: Acute Comment: Replete as necessary. (8) Elevated troponin I level Code(s): R74.8 - ABNORMAL LEVELS OF OTHER SERUM ENZYMES Status: Resolved Comment: Trending down, likely 2/2 renal dysfunction. Remains chest pain free. (9) Hypomagnesemia Code(s): E83.42 - HYPOMAGNESEMIA Status: Acute Comment: Replete. (10) KENROY (acute kidney injury) Code(s): N17.9 - ACUTE KIDNEY FAILURE, UNSPECIFIED Status: Resolved (11) Hyponatremia Code(s): E87.1 - HYPO-OSMOLALITY AND HYPONATREMIA Status: Resolved - Plan cont current plan of care, continue antibiotics Transfuse with one unit PRBC. Correct electrolyte abnormalities. Likely discharge tomorrow. Review of Systems - Medications/Allergies Allergies/Adverse Reactions: Allergies Allergy/AdvReac Type Severity Reaction Status Date / Time No Known Allergies Allergy Verified 08/23/17 04:37 Medications: Current Medications Hydrocodone Bitart/Acetaminophen ([place] 5/325) 1 tab PO Q6H PRN PRN Reason: Pain 4-6 Last Admin: 08/23/17 05:19 Dose: 1 tab Amlodipine Besylate (Norvasc) 10 mg PO DAILY [facility] Docusate Sodium (Colace) 100 mg PO BID [facility] Last Admin: 08/26/17 08:35 Dose: 100 mg Dronabinol (Marinol) 2.5 mg PO BID-AC [facility] Last Admin: 08/26/17 10:32 Dose: 2.5 mg Famotidine (Pepcid) 20 mg PO BID [facility] Last Admin: 08/26/17 08:35 Dose: 20 mg Fentanyl (Duragesic) 25 mcg TD Q3D [facility] Last Admin: 08/24/17 13:30 Dose: 25 mcg Cefepime HCl 2 gm/ Syringe 2.5 (ml/ Sodium Chloride) 12.5 mls @ 150 mls/hr SLOW IVP 0200,1400 [facility] Last Admin: 08/26/17 03:07 Dose: 12.5 mls Sodium Chloride (Normal Saline 0.9%) 1,000 mls @ 50 mls/hr IV .Q20H [facility] Last Admin: 08/26/17 05:46 Dose: 1,000 mls Levothyroxine Sodium (Synthroid) 125 mcg PO 0600 [facility] Last Admin: 08/26/17 05:46 Dose: 125 mcg Mineral Oil/White Petrolatum (Aquaphor 30 Gm) 0 gm TOP PRN PRN PRN Reason: Topical Irritations Polyethylene Glycol (Miralax) 17 gm PO DAILY [facility] Potassium Chloride (K-Dur) 40 meq PO BID-[facility] Potassium Chloride (Kcl) 20 meq IVPB ONE [facility] Stop: 08/26/17 14:00 Sodium Chloride (Flush - Normal Saline) 10 ml IVF Q12HR [facility] Last Admin: 08/26/17 08:39 Dose: Not Given Sodium Chloride (Flush - Normal Saline) 10 ml IVF PRN PRN PRN Reason: Saline Flush Tramadol HCl (Ultram) 50 mg PO Q8H PRN PRN Reason: Pain 4-6 Last Admin: 08/23/17 14:40 Dose: 50 mg
[2017-08-26] MEDS: Potassium Chloride 20 MEQ TAB PO SCH (17:08)
[2017-08-26] MEDS: Magnesium Oxide 400 MG TAB PO SCH (22:48)
[2017-08-27] MEDS: Cefepime 2 GM, Syringe 2.5 ML in Sodium Chloride 0.9% 10 ML SLOW IVP SCH ×2 (02:16→14:40)
[2017-08-27 05:28] LABS: #Eosinphils 0.1 thou/uL (0.0-0.7); #Lymphocytes 0.4 thou/uL (1.20-3.40); #Monocytes 0.2 thou/uL (0.11-0.59); #Neutrophils 1.5 thou/uL (1.40-6.50); %Eosinophils 5.1 % (0.0-10.0); %Lymphocytes 18.3 % (21.0-51.0); %Monocytes 9.4 % (0.0-10.0); %Neutrophils 65.3 % (42.0-75.0); Hemoglobin 8.9 g/dL (12.0-16.0); Mean Corpuscular HGB CONC 33.4 g/dL (32.0-36.0); Mean Corpuscular Hemoglobin 29.6 pg (27.0-31.0); Mean Corpuscular Volume 88.8 fl (81.0-99.0); Mean Platelet Volume 10.9 fL (7.4-10.4); Platelet Count 22 thou/uL (130-400); RBC Distribution Width 18.3 % (11.5-14.5); Red Blood Cell (RBC) Count 3.02 mill/uL (4.20-5.40); White Blood Cell (WBC) Count 2.3 thou/uL (4.8-10.8)
[2017-08-27 05:37] LABS: ALT (SGPT) 69 U/L (8-55); AST (SGOT) 86 U/L (5-34); Albumin 3.3 g/dL (3.4-4.8); Alkaline Phosphatase 91 U/L (40-150); Bilirubin, Direct 0.4 mg/dL (0.1-0.3); Bilirubin, Total 0.6 mg/dL (0.2-1.2); Protein, Total 8.6 g/dL (6.0-8.3)
[2017-08-27 05:38] LABS: Anion Gap 9 mmol/L (10-20); BUN (Urea Nitrogen) 14 mg/dL (9.8-20.1); Calc. Creatinine Clearance 89 mL/min (70-130); Calcium 11.8 mg/dL (7.8-10.44); Carbon Dioxide 25 mmol/L (23-31); Chloride 109 mmol/L (98-107); Estimated GFR-MDRD 76; Glucose 143 mg/dL (80-115); Potassium 3.3 mmol/L (3.5-5.1); Sodium 140 mmol/L (136-145)
[2017-08-27] MEDS: Levothyroxine Sodium 125 MCG TAB PO SCH (07:10)
[2017-08-27] MEDS: Famotidine 20 MG TAB PO SCH (08:54)
[2017-08-27] MEDS: Docusate 100 MG CAP PO SCH (08:54)
[2017-08-27 08:55] VITALS: BP 193/77
[2017-08-27] MEDS: Magnesium Oxide 400 MG TAB PO SCH (08:55)
[2017-08-27] MEDS: Potassium Chloride 20 MEQ TAB PO SCH (08:55)
[2017-08-27] MEDS: Dronabinol 2.5 MG CAP PO SCH (08:59)
[2017-08-27] MEDS ORDERED: Amlodipine 10 MG TAB PO SCH (09:00)
[2017-08-27] MEDS ORDERED: Polyethylene Glycol 3350 17 GM Packet PO SCH (09:00)
[2017-08-27] MEDS: HYDROcodone/Acetaminophen 5/325 mg Tablet PO PRN (09:10)
[2017-08-27 11:21] VITALS: TEMP 98.3
[2017-08-27] MEDS: traMADol HCl 50 MG TAB PO PRN (13:46)
--- NOTE | 2017-08-29 07:14 | DIS ---
DATE OF ADMISSION: 08/23/2017 DATE OF DISCHARGE: 08/27/2017 DISCHARGE DISPOSITION: Home. FOLLOWUP: 1. Follow up with primary care physician, Dr. Wood in 1 week. 2. Follow up with Dr. Nair on 08/30/2017 at 10:15 a.m. 3. CBC and CMP in 3-4 days. Primary care physician to follow. ALLERGIES: No known drug allergies. The patient was seen and examined on the day of discharge. Denies any new complaints, no chest pain, shortness of breath, palpitations. DISCHARGE MEDICATIONS: Omnicef 300 mg b.i.d. #10. All other home medications were resumed. BRIEF HOSPITAL COURSE: The patient is a 72-year-old female with breast cancer, status post chemother apy and radiation, presented to the hospital with generalized body aches and fall. Please refer to t sejal history and physical dated 08/23/2017 for further details. The patient was admitted to the hospital with a diagnosis of generalized weakness with fall. A chest x-ray was negative for infiltrate. A workup was consistent with neutropenic fever. Her WBC was 2.2 with no neutrophils. She was started on broad spectrum antibiotics. Due to low platelets, she also received a platelet transfusion. Later, she also received 1 unit of PRBC. Blood cultures were nega tive. Influenza testing was negative. MRI of the brain showed some possible small meningioma. [facility] physician advised to follow. On the day of discharge, the platelets were 22. I discussed w [facility] Oncology who will repeat labs after 2 days. She also had some electrolyte imbalances, those were replaced. She has been cleared by Oncology for discharge. FINAL DIAGNOSES: 1. Generalized weakness/neutropenic fever. 2. Pancytopenia. The patient received 1 unit of PRBC and 1 pack of platelets. 3. Acute kidney injury on chronic kidney disease stage 2, improved. 4. Hypokalemia. 5. Hyponatremia. 6. Hypomagnesemia 7. Mild protein calorie malnutrition. 8. Breast cancer, on chemotherapy. 9. Hypertension. 10. Abnormal liver function tests, probably secondary to sepsis. 11. Hypothyroidism. 12. Chronic pain syndrome. 13. Metabolic acidosis, improved. 14. Elevated troponins, probably secondary to demand ischemia. Plan of care was discussed with the patient in detail and she stated understanding. Total time coordinating the discharge of this patient was 35 minutes. She was extensively counseled on fall precautions.
== END 2017-08-27 15:45 | disposition home health service (06) | DRG 808 ==
LOC: ERS 23:11 → ONC 08-23 02:15 → T4-A 08-24 11:13 → ONC 08-25 08:27
PROVIDERS: ADMIT Internal Medicine; ATTEND Internal Medicine
PROC: 30233N1 Transfusion of Nonautologous Red Blood Cells into Peripheral Vein, Percutaneous Approach (ICD-10-PCS; principal; 2017-08-26)
DX: D61.810 Antineoplastic chemotherapy induced pancytopenia (principal); A41.9 Sepsis, unspecified organism; E44.0 Moderate protein-calorie malnutrition; N17.9 Acute kidney failure, unspecified; E87.1 Hypo-osmolality and hyponatremia; E87.2 Acidosis; I24.8 Other forms of acute ischemic heart disease; C79.9 Secondary malignant neoplasm of unspecified site; Z66 Do not resuscitate; E87.6 Hypokalemia; E83.42 Hypomagnesemia; Z68.29 Body mass index [BMI] 29.0-29.9, adult; E86.0 Dehydration; R73.9 Hyperglycemia, unspecified; C50.911 Malignant neoplasm of unspecified site of right female breast; Z85.850 Personal history of malignant neoplasm of thyroid; I12.9 Hypertensive chronic kidney disease with stage 1 through stage 4 chronic kidney disease, or unspecified chronic kidney disease; N18.2 Chronic kidney disease, stage 2 (mild); E03.9 Hypothyroidism, unspecified; G89.4 Chronic pain syndrome; K59.00 Constipation, unspecified; E83.52 Hypercalcemia; D63.1 Anemia in chronic kidney disease; T50.995A Adverse effect of other drugs, medicaments and biological substances, initial encounter; T45.1X5A Adverse effect of antineoplastic and immunosuppressive drugs, initial encounter
CPT/HCPCS: 36415; 36430; 70470; 70553; 71045; 77336; 77412; 80048; 80053; 80076; 81003; 81015; 82553; 83036; 83605; 83690; 83735; 83880; 84439; 84443; 84484; 85025; 86850; 86900; 86901; 87040; 87086; 87804; 93005; 93306; 94760; 96365; 96375; A4216; A9579; G8978-GP-CK; G8979-GP-CI; J0692; J2405; J3370; J3475; J3480; J3489; J7050; P9016; P9035; Q0167

== ENCOUNTER 2017-09-06 10:04 | Day surgery (SDC) | payer MEDICARE ==
[2017-09-06] MEDS ORDERED: Acetaminophen 500 MG TAB PO SCH (10:15)
[2017-09-06] MEDS ORDERED: diphenhydrAMINE 25 MG CAP PO SCH (10:15)
[2017-09-06] MEDS ORDERED: Sodium Chloride 0.9% 40 ML ONE (10:26)
[2017-09-06 14:46] LABS: Hemoglobin 8.1 g/dL (12.0-16.0)
[2017-09-06 17:36] VITALS: BP 201/88; TEMP 98.2
== END 2017-09-06 17:36 | disposition home or self-care (01) ==
LOC: ONC/OP 10:04
PROVIDERS: ATTEND Internal Medicine Hematology & Oncology
DX: D64.9 Anemia, unspecified (principal); D69.59 Other secondary thrombocytopenia
CPT/HCPCS: 36430; 85014; 85018; 86850; 86900; 86901; A4216; J1642; P9016

== ENCOUNTER 2017-09-20 03:12 | Emergency (ER) | payer MEDICARE ==
[2017-09-20] MEDS ORDERED: HYDROcodone/Acetaminophen 10/325 mg Tablet ONE (04:48)
[2017-09-20] MEDS ORDERED: Ondansetron ODT 4 MG TAB ONE (04:53)
== END 2017-09-20 08:01 | disposition home or self-care (01) ==
LOC: ERS 03:12
DX: G89.3 Neoplasm related pain (acute) (chronic) (principal); C50.911 Malignant neoplasm of unspecified site of right female breast; I10 Essential (primary) hypertension; Z85.850 Personal history of malignant neoplasm of thyroid; Z79.891 Long term (current) use of opiate analgesic; Z79.899 Other long term (current) drug therapy
CPT/HCPCS: 99283; Q0162

== ENCOUNTER 2017-09-29 09:36 | Day surgery (SDC) | payer MEDICARE ==
[2017-09-29] MEDS ORDERED: Acetaminophen 500 MG TAB PO SCH (10:00)
[2017-09-29] MEDS ORDERED: diphenhydrAMINE 25 MG CAP PO SCH (10:00)
[2017-09-29] MEDS ORDERED: Sodium Chloride 0.9% 40 ML ONE (10:05)
[2017-09-29 13:47] LABS: Hemoglobin 8.3 g/dL (12.0-16.0); Platelet Count 20 thou/uL (130-400)
[2017-09-29 16:04] VITALS: BP 143/69; TEMP 97.8
[2017-09-29 16:49] LABS: Hemoglobin 9.5 g/dL (12.0-16.0); Platelet Count 19 thou/uL (130-400)
== END 2017-09-29 17:18 | disposition home or self-care (01) ==
LOC: ONC/OP 09:36
PROVIDERS: ATTEND Internal Medicine Hematology & Oncology
DX: D64.9 Anemia, unspecified (principal); D69.6 Thrombocytopenia, unspecified
CPT/HCPCS: 36415; 36430; 85014; 85018; 85049; 86850; 86900; 86901; A4216; J1642; P9016

== ENCOUNTER 2017-10-04 17:49 | Inpatient (IN) | payer MEDICARE ==
[2017-10-04 19:22] LABS: #Lymphocytes 0.5 thou/uL (1.20-3.40); #Monocytes 0.1 thou/uL (0.11-0.59); #Neutrophils 0.6 thou/uL (1.40-6.50); %Basophils 1.6 % (0.0-1.0); %Eosinophils 1.8 % (0.0-10.0); %Lymphocytes 40.3 % (21.0-51.0); %Monocytes 10.7 % (0.0-10.0); %Neutrophils 45.6 % (42.0-75.0); Hemoglobin 7.5 g/dL (12.0-16.0); Mean Corpuscular HGB CONC 36.1 g/dL (32.0-36.0); Mean Corpuscular Hemoglobin 30.3 pg (27.0-31.0); Mean Corpuscular Volume 83.8 fl (81.0-99.0); Mean Platelet Volume 9.2 fL (7.4-10.4); Platelet Count 15 thou/uL (130-400); RBC Distribution Width 16.1 % (11.5-14.5); Red Blood Cell (RBC) Count 2.49 mill/uL (4.20-5.40); White Blood Cell (WBC) Count 1.3 thou/uL (4.8-10.8)
[2017-10-04 19:30] LABS: ALT (SGPT) 39 U/L (8-55); AST (SGOT) 92 U/L (5-34); Albumin 3.3 g/dL (3.4-4.8); Alkaline Phosphatase 113 U/L (40-150); Anion Gap 12 mmol/L (10-20); BUN (Urea Nitrogen) 15 mg/dL (9.8-20.1); Bilirubin, Total 0.6 mg/dL (0.2-1.2); CK (CPK) 254 U/L (29-168); Calc. Creatinine Clearance 0 mL/min (70-130); Calcium 9.4 mg/dL (7.8-10.44); Carbon Dioxide 22 mmol/L (23-31); Chloride 100 mmol/L (98-107); Estimated GFR-MDRD 74; Globulin 5.5 g/dL (2.4-3.5); Glucose 115 mg/dL (80-115); Potassium 4.3 mmol/L (3.5-5.1); Protein, Total 8.8 g/dL (6.0-8.3); Sodium 130 mmol/L (136-145)
[2017-10-04 19:34] LABS: CKMB 0.5 ng/mL (0-6.6); Troponin I Less than 0.010 ng/mL (< 0.028)
--- NOTE | 2017-10-04 19:39 | RAD ---
PORTABLE CHEST: HISTORY: Shortness of breath. FINDINGS: The lungs are clear. The heart and mediastinum appear unremarkable. A Mediport catheter is in place with the tip overlying the brachiocephalic, unchanged from the exam of 08/22/2017. IMPRESSION: No acute abnormality identified. POS: H
[2017-10-04 19:56] LABS: Bilirubin Negative (Negative); Blood, Urine Large (Negative); Clarity CLEAR (Clear); Glucose, Urine (Dipstick) Negative (Negative); Leukocyte Negative (Negative); Nitrite Negative (Negative); Protein, Urine (Dipstick) 30 mg/dL (Neg-Trace); Specific Gravity, Urine 1.014 (1.002-1.036); Urobilinogen 0.2 mg/dL (0.2-1.0)
[2017-10-04 19:57] LABS: Bacteria/HPF None Seen HPF (None Seen); Hyaline Casts/LPF 0-3 HYALINE CAST LPF (0-3 Hyaline); Pathc Cast-AUWi Flag 0.72 (0-2.49); RBC/HPF 21-50 HPF (0-3); Squamous Epithelial None Seen HPF (0-3); WBC/HPF 0-3 HPF (0-3)
[2017-10-05 00:49] VITALS: BMI 26.9
[2017-10-05] MEDS ORDERED: Acetaminophen 325 MG TAB PO PRN (05:28)
[2017-10-05] MEDS ORDERED: Calcium Carbonate 500 MG ChewTAB PO PRN (05:28)
[2017-10-05] MEDS ORDERED: Milk Of Magnesia 30 ML UDCUP PO PRN (05:28)
[2017-10-05] MEDS ORDERED: Ondansetron HCl/PF 4 MG/2 ML Vial IVP PRN (05:28)
[2017-10-05] MEDS ORDERED: Mag-Al 1200 mg/1200 mg/30 ML UDCUP PO PRN (05:28)
[2017-10-05] MEDS ORDERED: Guaifenesin DM 100-10/5 ML UDCUP PO PRN (05:28)
[2017-10-05] MEDS ORDERED: Senokot 8.6 MG TAB PO PRN (05:28)
[2017-10-05] MEDS ORDERED: traMADol HCl 50 MG TAB PO PRN (05:30)
[2017-10-05] MEDS ORDERED: HYDROcodone/Acetaminophen 5/325 mg Tablet PO PRN (05:30)
--- NOTE | 2017-10-05 06:32 | HP ---
REASON FOR ADMISSION: Pancytopenia, postmenopausal bleeding. HISTORY OF PRESENT ILLNESS: The patient gives history of having vaginal bleeding from the last two days. These were small amounts, but had multiple episodes. The patient got concerned, hence came to emergency room. She in fact called her home health nurse, Ms. Boston, who asked her to come to the emergency room. Her last bowel movement was early this morning at 4:00 a.m. and was normal. No history of rectal bleeding, hemoptysis or hematemesis. Has some dry cough, but no expectoration. Her last chemotherapy was in June, last radiation therapy was in July for breast cancer. No complaints of chest pain, palpitation, PND or orthopnea. No complaints of fever. 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 CURRENT MEDICATIONS: Norvasc 5 mg daily, Synthroid 125 mcg daily, Colace 100 mg twice daily, vitamin D3 1000 units daily, Roslyn 5/325 p.o. q.6 hours p.r.n., multivitamin 1 tab once daily. ALLERGIES: No known drug allergies. PERSONAL HISTORY: Does not abuse alcohol or drugs. No history of smoking. FAMILY HISTORY: Mother is living and is 94 years old. She has coronary artery disease, hypertension, and diabetes. Father in his 70s and has had history of coronary artery disease. Patient normally ambulates with a rolling walker. The patient has 3 children. She lives with a friend here locally. CODE STATUS: DNR. This was discussed with the patient. REVIEW OF SYSTEMS: The following complete review of systems was negative, unless otherwise mentioned in the HPI or below: Constitutional: Weight loss or gain, ability to conduct usual activities. Skin: Rash, itching. Eyes: Double vision, pain. ENT/Mouth: Nose bleeding, neck stiffness, pain, tenderness. Cardiovascular: Palpitations, dyspnea on exertion, orthopnea. Respiratory: Shortness of breath, wheezing, cough, hemoptysis, fever or night sweats. Gastrointestinal: Poor appetite, abdominal pain, heartburn, nausea, vomiting, constipation, or diarrhea. Genitourinary: Urgency, frequency, dysuria, nocturia. Musculoskeletal: Pain, swelling. Neurologic/Psychiatric: Anxiety, depression. Allergy/Immunologic: Skin rash, bleeding tendency. PHYSICAL EXAMINATION: GENERAL: The patient is a 72-year-old female who is currently not in any acute distress. VITAL SIGNS: Blood pressure 108/66, pulse 82 per minute, respiratory rate 20 per minute, temperature 98.8 degrees Fahrenheit, saturating 97% on room air. NECK: Supple, no elevated JVD. HEENT: Eyes; extraocular muscles intact. Pupils reacting to light. Oral cavity; mucous membranes are moist. No exudates or congestion. CARDIOVASCULAR: S1, S2 heard. Regular rhythm. RESPIRATORY: Air entry 1+ bilateral. Scattered rhonchi plus no rales or wheezes. ABDOMEN: Soft. No rigidity or guarding. Bowel sounds are heard. EXTREMITIES: No peripheral edema or calf tenderness. VASCULAR SYSTEM: Peripheral pulses 1+ bilateral, no ischemic ulcerations or gangrene. CENTRAL NERVOUS SYSTEM: No gross focal deficits noted. The patient is alert and oriented well. PSYCHIATRIC: The patient's mood is euthymic. No hallucinations or delusions. LABORATORY AND X-RAY FINDINGS: White count of 1.3, H&H 7.5 and 20, MCV is 83, platelet count is 15, with 45% neutrophils. Sodium 130, serum bicarbonate 22, BUN 15, creatinine 0.7, glucose 115, AST 92, ALT 39, total bilirubin 0.6, albumin is 3.3. CK level is 254. One set of troponin is negative. UA shows large blood with 21-50 RBCs. Chest x-ray done shows no acute cardiopulmonary abnormalities. CLINICAL IMPRESSION AND PLAN: The patient will be admitted to oncology/medical floor for pancytopenia. The ER physician spoke to Dr. Nair and was advised to give 2 units of packed cells. The patient is receiving the second unit at present. Her normal hemoglobin trends around 9, currently around 7.5, now prior to transfusion. Also, the patient has a very low platelet presently at 15. We will continue her Roslyn and Synthroid as before. We will consult Dr. Nair and [facility] [employer] consultation as well. We will obtain ultrasound pelvis complete to see for postmenopausal bleeding source. Likely it is due to low platelet count. The patient does not have any oral mucosa bleeding or obvious petechiae or ecchymosis at present. We will continue to closely monitor her on medical floor. Please note I have seen and examined patient on 10/04/2017. HANNAH
[2017-10-05] MEDS: Levothyroxine Sodium 125 MCG TAB PO SCH (07:20)
[2017-10-05] MEDS: Multivitamin W/ Minerals 1 TAB PO SCH (08:32)
[2017-10-05] MEDS: Amlodipine 5 MG TAB PO SCH (08:32)
[2017-10-05] MEDS: Famotidine 20 MG TAB PO SCH ×2 (08:35→20:19)
[2017-10-05 09:05] LABS: Mean Corpuscular HGB CONC 34.4 g/dL (32.0-36.0); Mean Corpuscular Hemoglobin 30.3 pg (27.0-31.0); Mean Corpuscular Volume 87.9 fl (81.0-99.0); Mean Platelet Volume 7.7 fL (7.4-10.4); Platelet Count 64 thou/uL (130-400); RBC Distribution Width 15.4 % (11.5-14.5); White Blood Cell (WBC) Count 1.3 thou/uL (4.8-10.8)
[2017-10-05 09:18] LABS: Band 4 % (5-11); Lymphocytes 54 % (21-51); MDiff Complete? YES; Monocytes 4 % (0-10); Neutrophil 32 % (42-75); Nucleated RBC 1 % (0); PLT Morphology Comment Appears Decreased; Reactive Lymphocytes 6 % (0-10); Rouleaux Formation SLIGHT = 1-5 cells (100X) (None Seen)
--- NOTE | 2017-10-05 10:10 | ULT ---
PELVIC ULTRASOUND: 10/05/2017 HISTORY: Postmenopausal bleeding. COMPARISON: None. TECHNIQUE: Multiplanar steven-scale sonographic imaging of the pelvis is obtained with transabdominal and endovagi nal imaging. FINDINGS: The uterus is enlarged and heterogeneous. The endometrium cannot be visualized. The uterine archite cture is abnormal with diffuse heterogeneity and findings suggesting a large mass within the uterus, measuring at least 10.3 x 7.1 cm. The uterus itself measures approximately 11.7 x 5.7 x [address] ovary could be visualized. Trace free fluid is seen. IMPRESSION: Large soft tissue mass involving the majority of the uterus, measuring up to 10.4 cm. The endometria l stripe cannot be visualized. This may represent a large fibroid. Uterine malignancy cannot be exc luded. A gynecological consultation and consideration for further assessment via pelvic MRI is advised. POS: YOLA
--- NOTE | 2017-10-05 10:11 | CON ---
DATE OF CONSULTATION: 10/05/2017 REGULAR PHYSICIAN: Brianne Barber M.D. CONSULTING PHYSICIAN: Aj Ryan M.D. REASON FOR Consult: Postmenopausal bleeding. HISTORY OF PRESENT ILLNESS: Ms. Green is a 72-year-old female with a history of recurrent breast cancer who was admitted last evening with history of vaginal bleeding and low platelet count. She states that she has had a small amount of bleeding over several episodes over the last week. She denies nausea, vomiting, fever or chills. She states her last Pap smear was many years ago. PAST MEDICAL HISTORY: Metastatic breast cancer as above. She reports her last chemo was in June of this year and her last radiation was in July of this year. She reports chronic hypertension and hypothyroidism. PAST SURGICAL HISTORY: Includes cholecystectomy, thyroidectomy and surgery to her right hand. CURRENT MEDICATIONS: Include Norvasc, Synthroid, multivitamins, and [place]. ALLERGIES: No known allergies. SOCIAL HISTORY: Denies tobacco or alcohol use. FAMILY HISTORY: Denies gynecologic malignancy. PHYSICAL EXAMINATION: GENERAL: She is pleasant, but quiet. CHEST: Clear to auscultation with MediPort seen in her upper left chest. CARDIOVASCULAR: Regular rate and rhythm. ABDOMEN: Soft without guarding or rebound. There is no distention. PELVIC: Examination is deferred. There is what looks like a small amount of old blood in her Depend garment. LABORATORY DATA: On admission, white count 1.3, hemoglobin 7.5, and hematocrit 20 with a platelet count of 15,000. ASSESSMENT: 1. Recurrent breast cancer. 2. Postmenopausal bleeding. 3. Pancytopenia with platelet count of 15,000. PLAN: At this time, a pelvic ultrasound has been ordered to further characterize her uterus and adnexa. Once her pancytopenia has improved, I would suggest that she get a Pap smear and possibly an endometrial biopsy. [facility]
[2017-10-05] MEDS ORDERED: Bupivacaine HCl 0.5%/Epinephrine 1:200,000/PF 30 ml Vial ONE (15:32)
[2017-10-06 04:52] LABS: #Lymphocytes 0.6 thou/uL (1.20-3.40); #Monocytes 0.1 thou/uL (0.11-0.59); #Neutrophils 0.8 thou/uL (1.40-6.50); %Eosinophils 2.6 % (0.0-10.0); %Lymphocytes 37.2 % (21.0-51.0); %Monocytes 7.7 % (0.0-10.0); %Neutrophils 50.5 % (42.0-75.0); Hemoglobin 9.7 g/dL (12.0-16.0); Mean Corpuscular Hemoglobin 30.2 pg (27.0-31.0); Mean Corpuscular Volume 86.2 fl (81.0-99.0); Mean Platelet Volume 8.3 fL (7.4-10.4); Platelet Count 60 thou/uL (130-400); RBC Distribution Width 15.5 % (11.5-14.5); White Blood Cell (WBC) Count 1.6 thou/uL (4.8-10.8)
[2017-10-06 05:00] LABS: ALT (SGPT) 33 U/L (8-55); AST (SGOT) 63 U/L (5-34); Albumin 3.3 g/dL (3.4-4.8); Alkaline Phosphatase 96 U/L (40-150); Anion Gap 13 mmol/L (10-20); BUN (Urea Nitrogen) 15 mg/dL (9.8-20.1); Bilirubin, Total 0.8 mg/dL (0.2-1.2); Calc. Creatinine Clearance 85 mL/min (70-130); Calcium 9.5 mg/dL (7.8-10.44); Carbon Dioxide 20 mmol/L (23-31); Chloride 102 mmol/L (98-107); Estimated GFR-MDRD 81; Globulin 5.3 g/dL (2.4-3.5); Glucose 123 mg/dL (80-115); Potassium 3.8 mmol/L (3.5-5.1); Protein, Total 8.6 g/dL (6.0-8.3); Sodium 131 mmol/L (136-145)
[2017-10-06] MEDS: Levothyroxine Sodium 125 MCG TAB PO SCH (05:27)
--- NOTE | 2017-10-06 06:34 | PDOC.PN ---
- Subjective Encounter Start Date: 10/05/17 Encounter Start Time: 09:30 Subjective: pt up in bed no complains - Objective Resuscitation Status: Resuscitation Status DNR:Do Not Resuscitate Vital Signs & Weight: Vital Signs (12 hours) Temp Pulse Resp BP Pulse Ox 10/06/17 05:15 98.1 F 81 20 116/74 98 10/06/17 00:17 98.0 F 88 20 127/70 96 10/05/17 20:00 99.0 F 91 20 10/05/17 19:36 99.0 F 91 20 143/75 H 97 Weight Admit Weight 161 lb 9 oz Weight 161 lb 9 oz I&O: 10/04/17 10/05/17 10/06/17 06:59 06:59 06:59 Intake Total 350 250 Balance 350 250 Result Diagrams: 10/06/17 04:19 10/06/17 04:19 Phys Exam - Physical Examination HEENT: PERRLA, moist MMs, sclera anicteric, TM's clear, oral pharynx no lesions , 2+ tonsils Neck: no nodes, no JVD, supple, full ROM Respiratory: no wheezing, no rales, no rhonchi, wheezing present, clear to auscultation bilateral Cardiovascular: RRR, no significant murmur, no rub, gallop, irregular Gastrointestinal: soft, non-tender, no distention, positive bowel sounds Dx/Plan (1) Anemia, chronic disease Code(s): D63.8 - ANEMIA IN OTHER CHRONIC DISEASES CLASSIFIED ELSEWHERE Status : Acute (2) Thrombocytopenia Code(s): D69.6 - THROMBOCYTOPENIA, UNSPECIFIED Status: Chronic (3) Malignant neoplasm of central portion of female breast Code(s): C50.119 - MALIGNANT NEOPLASM OF CENTRAL PORTION OF UNSP FEMALE BREAST Status: Acute - Plan * . Pt is s/p blood transfusion and platelets. vaginal ultrasound indicated large mass in uterus fibroid vs malignancy. will speak with onc to see if she can get outpatient work up once her hh and platelets are stable. Review of Systems - Review of Systems ENT: negative: Ear Pain, Ear Discharge, Nose Pain, Nose Discharge, Nose Congestion, Mouth Pain, Mouth Swelling, Throat Pain, Throat Swelling, Other Respiratory: negative: Cough, Dry, Shortness of Breath, Hemoptysis, SOB with Excertion, Pleuritic Pain, Sputum, Wheezing Cardiovascular: negative: chest pain, palpitations, orthopnea, paroxysmal nocturnal dyspnea, edema, light headedness, other - Medications/Allergies Allergies/Adverse Reactions: Allergies Allergy/AdvReac Type Severity Reaction Status Date / Time No Known Allergies Allergy Verified 08/23/17 04:37 Medications: Current Medications Acetaminophen (Tylenol) 650 mg PO Q4H PRN PRN Reason: Headache/Fever or Pain Hydrocodone Bitart/Acetaminophen ([place] 5/325) 1 tab PO Q6H PRN PRN Reason: Pain 7-10 Last Admin: 10/06/17 01:11 Dose: 1 tab Al Hydroxide/Mg Hydroxide (Maalox) 30 ml PO Q6H PRN PRN Reason: Heartburn or Indigestion Amlodipine Besylate (Norvasc) 5 mg PO DAILY [facility] Last Admin: 10/05/17 08:32 Dose: 5 mg Calcium Carbonate (Tums) 1,000 mg PO Q4H PRN PRN Reason: Heartburn or Indigestion Famotidine (Pepcid) 20 mg PO BID [facility] Last Admin: 10/05/17 20:19 Dose: 20 mg Guaifenesin/Dextromethorphan (Robitussin Dm) 15 ml PO Q4H PRN PRN Reason: Cough Iron/Minerals/Multivitamins (Theragran M) 1 tab PO DAILY [facility] Last Admin: 10/05/17 08:32 Dose: 1 tab Levothyroxine Sodium (Synthroid) 125 mcg PO 0600 [facility] Last Admin: 10/06/17 05:27 Dose: 125 mcg Magnesium Hydroxide (Milk Of Magnesium) 30 ml PO DAILYPRN PRN PRN Reason: Constipation Ondansetron HCl (Zofran) 4 mg IVP Q6H PRN PRN Reason: Nausea/Vomiting Senna (Senokot) 2 tab PO HSPRN PRN PRN Reason: Constipation Tramadol HCl (Ultram) 50 mg PO Q8H PRN PRN Reason: Pain 4-6
[2017-10-06 07:25] VITALS: BP 125/74; TEMP 97.6
[2017-10-06] MEDS: Amlodipine 5 MG TAB PO SCH (09:10)
[2017-10-06] MEDS: Famotidine 20 MG TAB PO SCH (09:11)
[2017-10-06] MEDS: Multivitamin W/ Minerals 1 TAB PO SCH (09:11)
--- NOTE | 2017-10-07 00:50 | DIS ---
DATE OF ADMISSION: 10/04/2017 DATE OF DISCHARGE: 10/06/2017 DISCHARGE DIAGNOSES: 1. Vaginal bleeding. 2. Pancytopenia. 3. History of breast cancer. HOSPITAL COURSE: The patient is a very pleasant 72-year-old female who initially presented to the [facility] with vaginal bleeding. The patient was seen by [facility] Hospitalist and had ordered a transvagi nal pelvic ultrasound. The patient was given 2 units of blood and platelets. Her repeat H&H the was 10.7 and platelets of 64, prior platelets of 15. The patient stated that her vaginal bleeding has now stopped. It is only small spots and the patient remains asymptomatic. I did speak with Hospitalist [facility] who stated and discussed the ultrasound findings who recommended to follow up with [facility] for a Pap smear. Ultrasound did indicate large soft tissue mass i nvolving the majority of the uterus. The endometrial strip cannot be visualized. This could be a la rge fibroid. Uterine malignancy cannot be excluded especially giving her fact that she has breast ca ncer. The patient was notified about this. She also was told to follow up with [facility] since she does not have a bit shaver for a Pap smear. Also, I gave patient a lab slip to check a blood work next week since her next routine blood work with her oncologist is on the . S he was told to go to the same place where she normally goes for her blood draw. The patient will be discharged home. Follow up with PCP, Gynecology, and her oncologist. PHYSICAL EXAMINATION: VITAL SIGNS: 97.6, 83, 125/74, 98% room air. GENERAL: She is awake, alert, oriented x3, does not appear in distress. CARDIOVASCULAR: S1, S2 present. No murmurs, rubs or gallops. ABDOMEN: Soft, nontender. Bowel sounds are present x2. She does have some mild vaginal spotting. MEDICATIONS: Are as the following: Potassium 10 mEq daily, lisinopril 10 mg daily, [place] 1 q.4 hour s p.r.n., levothyroxine 125 mcg daily, Norvasc 5 mg p.o. daily.
== END 2017-10-06 14:47 | disposition home or self-care (01) | DRG 810 ==
LOC: ERS 17:49 → T4-B 20:46
PROVIDERS: ADMIT Emergency Medicine; ATTEND Emergency Medicine
PROC: 30233N1 Transfusion of Nonautologous Red Blood Cells into Peripheral Vein, Percutaneous Approach (ICD-10-PCS; principal; 2017-10-04)
PROC: 30233R1 Transfusion of Nonautologous Platelets into Peripheral Vein, Percutaneous Approach (ICD-10-PCS; 2017-10-05)
DX: D61.818 Other pancytopenia (principal); N95.0 Postmenopausal bleeding; I10 Essential (primary) hypertension; C50.911 Malignant neoplasm of unspecified site of right female breast; E89.0 Postprocedural hypothyroidism; N85.9 Noninflammatory disorder of uterus, unspecified; D63.8 Anemia in other chronic diseases classified elsewhere; Z85.850 Personal history of malignant neoplasm of thyroid; Z92.21 Personal history of antineoplastic chemotherapy; Z92.3 Personal history of irradiation; Z79.899 Other long term (current) drug therapy
CPT/HCPCS: 36415; 36430; 71045; 76856; 80053; 81003; 81015; 82553; 84484; 85025; 86850; 86900; 86901; 93005; J0670; J1642; P9016; P9035

== ENCOUNTER 2017-10-19 06:42 | Inpatient (IN) | payer MEDICARE ==
[2017-10-19 07:29] LABS: Hemoglobin 7.2 g/dL (12.0-16.0); Mean Corpuscular HGB CONC 35.4 g/dL (32.0-36.0); Mean Corpuscular Hemoglobin 30.5 pg (27.0-31.0); Mean Corpuscular Volume 86.4 fL (78.0-98.0); Mean Platelet Volume 8.5 fL (7.4-10.4); Platelet Count 31 thou/uL (130-400); RBC Distribution Width 15.5 % (11.5-14.5); Red Blood Cell (RBC) Count 2.35 mill/uL (4.20-5.40); White Blood Cell (WBC) Count 0.9 thou/uL (4.8-10.8)
[2017-10-19 07:39] LABS: ALT (SGPT) 38 U/L (8-55); AST (SGOT) 81 U/L (5-34); Alkaline Phosphatase 98 U/L (40-150); Anion Gap 12 mmol/L (10-20); BUN (Urea Nitrogen) 17 mg/dL (9.8-20.1); Bilirubin, Total 0.5 mg/dL (0.2-1.2); Calc. Creatinine Clearance 0 mL/min (70-130); Calcium 9.5 mg/dL (7.8-10.44); Carbon Dioxide 19 mmol/L (23-31); Chloride 100 mmol/L (98-107); Estimated GFR-MDRD 73; Globulin 5.8 g/dL (2.4-3.5); Glucose 127 mg/dL (80-115); Lipase 26 U/L (8-78); Potassium 4.4 mmol/L (3.5-5.1); Protein, Total 8.8 g/dL (6.0-8.3); Sodium 127 mmol/L (136-145)
[2017-10-19 07:58] LABS: Band 8 % (5-11); Lymphocytes 60 % (21-51); MDiff Complete? YES; Neutrophil 32 % (42-75); PLT Morphology Comment Appears Decreased; Polychromasia SLIGHT = 2-3 cells (100X) (0-2/hpf)
[2017-10-19] MEDS ORDERED: Acetaminophen 325 MG TAB ONE (08:41)
--- NOTE | 2017-10-19 09:12 | ULT ---
RIGHT LOWER EXTREMITY VENOUS DUPLEX ULTRASOUND INCLUDING COLOR AND SPECTRAL DOPPLER IMAGING: History: 72-year-old female with history of right leg cramps and pain for several days. Patient has a history of breast cancer. FINDINGS: Exam performed from groin to ankle including visualized greater saphenous, common femoral, superficia l femoral, profunda femoral, popliteal, trifurcation, and posterior tibial vein regions. There is pha sic flow at all levels with normal compressibility and normal augmentation. No intraluminal thrombus. IMPRESSION: No evidence for deep venous thrombosis. POS: [facility]
[2017-10-19] MEDS ORDERED: Morphine 10 MG/ML VIAL ONE (09:30)
[2017-10-19 10:10] LABS: Bilirubin Negative (Negative); Blood, Urine Large (Negative); Clarity CLOUDY (Clear); Glucose, Urine (Dipstick) Negative (Negative); Leukocyte Small (Negative); Nitrite Positive (Negative); Protein, Urine (Dipstick) 100 mg/dL (Neg-Trace); Specific Gravity, Urine 1.016 (1.002-1.036); Urobilinogen 0.2 mg/dL (0.2-1.0); pH, Urine 6.5 (5.0-9.0)
[2017-10-19 10:12] LABS: Bacteria/HPF 2+ HPF (None Seen); Hyaline Casts/LPF 0-3 HYALINE CAST LPF (0-3 Hyaline); Pathc Cast-AUWi Flag 0.43 (0-2.49); RBC/HPF 0-3 HPF (0-3)
[2017-10-19 10:24] LABS: #Eosinphils 0.1 thou/uL (0.0-0.7); #Lymphocytes 0.5 thou/uL (1.20-3.40); #Monocytes 0.1 thou/uL (0.11-0.59); #Neutrophils 0.7 thou/uL (1.40-6.50); %Basophils 0.8 % (0.0-1.0); %Eosinophils 5.4 % (0.0-10.0); %Lymphocytes 36.4 % (21.0-51.0); %Monocytes 6.5 % (0.0-10.0); %Neutrophils 50.8 % (42.0-75.0); Hemoglobin 7.6 g/dL (12.0-16.0); Mean Corpuscular HGB CONC 34.5 g/dL (32.0-36.0); Mean Corpuscular Hemoglobin 29.8 pg (27.0-31.0); Mean Corpuscular Volume 86.5 fL (78.0-98.0); Mean Platelet Volume 7.7 fL (7.4-10.4); Platelet Count 28 thou/uL (130-400); RBC Distribution Width 15.5 % (11.5-14.5); Red Blood Cell (RBC) Count 2.56 mill/uL (4.20-5.40); Rouleaux Formation MODERATE= 6-15 cells (100X) (None Seen); White Blood Cell (WBC) Count 1.4 thou/uL (4.8-10.8)
[2017-10-19 10:26] LABS: Crystals/HPF 1+ CA OXALATE HPF (Negative)
[2017-10-19] MEDS ORDERED: ISOVUE-370 76%-LOCM 1 ML ONE (13:06)
[2017-10-19 13:47] VITALS: BMI 26.6
[2017-10-19] MEDS ORDERED: Ondansetron HCl/PF 4 MG/2 ML Vial IVP PRN (14:48)
[2017-10-19] MEDS ORDERED: HYDROcodone/Acetaminophen 5/325 mg Tablet PO PRN (14:48)
[2017-10-19] MEDS ORDERED: Milk Of Magnesia 30 ML UDCUP PO PRN (14:48)
[2017-10-19] MEDS ORDERED: Loperamide HCl 2 MG CAP PO PRN (14:48)
[2017-10-19] MEDS ORDERED: hydrALAZINE 20 MG/ML VIAL SLOW IVP PRN (14:48)
[2017-10-19] MEDS ORDERED: Zolpidem Tartrate 5 MG TAB PO PRN (14:48)
[2017-10-19] MEDS ORDERED: Ondansetron ODT 4 MG TAB PO PRN (14:48)
[2017-10-19] MEDS ORDERED: Loratadine 10 MG TAB PO PRN (14:48)
[2017-10-19] MEDS ORDERED: Sodium Chloride 0.65% Nasal 44 ML BOT EA NARE PRN (14:48)
[2017-10-19] MEDS ORDERED: Mag-Al 1200 mg/1200 mg/30 ML UDCUP PO PRN (14:48)
[2017-10-19] MEDS ORDERED: Diabetic Tussin 200 MG/10 ML UDCUP PO PRN (14:48)
[2017-10-19] MEDS ORDERED: Chloraseptic Spray 180 ml Bottle PO PRN (14:48)
[2017-10-19] MEDS ORDERED: Senokot 8.6 MG TAB PO PRN (14:48)
[2017-10-19] MEDS ORDERED: Artificial Tears 18 DROP/0.9 ML EA EYE PRN (14:48)
[2017-10-19] MEDS ORDERED: Eucerin (Mineral Oil/Petrolatum,White) 30 gm Jar TOP PRN (14:48)
--- NOTE | 2017-10-19 15:20 | RAD ---
FRONTLA RADIOGRAPH CHEST PORTABLE UPRIGHT: Date: 10/19/17 COMPARISON: 10/04/17. HISTORY: Nausea and pain. FINDINGS: Left vascular catheter noted, distal tip overlying the midline superior mediastinum, presumably in th e region of the brachiocephalic vein. This is stable when compared to the prior exam. There is no pne umothorax or pleural fluid. There is no focal consolidation or alveolar edema. There is a questionable pulmonary nodule identified within the mid right lung zone measuring in the 1 .0 cm range. IMPRESSION: Question 1.0 cm pulmonary nodule within lateral aspect of mid right lung zone. Follow-up CT examinati on may be beneficial. No focal consolidation or alveolar edema. CODE T. CODE LN. POS: [facility]
--- NOTE | 2017-10-19 15:59 | CT ---
CT PULMONARY ANGIOGRAM WITH IV CONTRAST AND 3D POSTPROCESSIN10/19/17 HISTORY: Right breast cancer, nausea, right leg cramps and pain. FINDINGS: There is good contrast opacification of the pulmonary arterial vasculature without filling defects to suggest pulmonary embolism. The coronary artery vasculature is well opacified without filling defect to suggest pulmonary embolism. The thoracic aorta demonstrates no evidence of aneurysm or dissection . Vascular calcifications are present. No pleural or pericardial effusions are noted. Prominent right axillary lymph nodes are stable since the PET CT of 12/29/16. There is an ill-defined patchy density i n the lateral aspect of the right middle lobe measuring about 2 cm. Metastatic disease in the skeleto n is again noted as on the PET CT of 12/29/16. IMPRESSION: 1. No CT evidence of pulmonary embolism. 2. Ill-defined patchy density in the right middle lobe. Differential diagnosis includes infectio n, neoplasm, post radiation change. POS: OFF
--- NOTE | 2017-10-19 16:06 | HP ---
PRIMARY CARE PHYSICIAN: Dr. Israel Dodge. REASON FOR ADMISSION: Right leg pain. HISTORY OF PRESENT ILLNESS: A 72-year-old female who has back pain as well as pain radiating to right lower extremity. This was getting worse for the last 3 days. She was experiencing cramps in her legs. She denies any chest pain. She denies any shortness of breath. She denies any cough. She describes pain as sharp and stabbing in nature, about 8/10 in intensity. She was not able to walk because of pain. She denies any fall. She denies any trauma. Patient has history of breast cancer and she finished chemotherapy. She also finished radiation therapy. Today in the emergency room, patient was found with leukopenia, thrombocytopenia and anemia. Patient had a significantly elevated D-dimer. Her urinalysis was suggestive of UTI. Patient was not complaining of any UTI symptoms, so she was not feeling any fever or chills, but she had one-time blood in her urine. REVIEW OF SYSTEMS: The following complete review of systems was negative, unless otherwise mentioned in the HPI or below: Constitutional: Weight loss or gain, ability to conduct usual activities. Skin: Rash, itching. Eyes: Double vision, pain. ENT/Mouth: Nose bleeding, neck stiffness, pain, tenderness. Cardiovascular: Palpitations, dyspnea on exertion, orthopnea. Respiratory: Shortness of breath, wheezing, cough, hemoptysis, fever or night sweats. Gastrointestinal: Poor appetite, abdominal pain, heartburn, nausea, vomiting, constipation, or diarrhea. Genitourinary: Urgency, frequency, dysuria, nocturia. Musculoskeletal: Pain, swelling. Neurologic/Psychiatric: Anxiety, depression. Allergy/Immunologic: Skin rash, bleeding tendency. Please see my HPI for pertinent positive and negative. All other review of system reviewed and negative except as mentioned in the HPI. PAST MEDICAL HISTORY: History of diverticulitis, history of breast cancer status post chemotherapy, hypertension, thyroid cancer, hypothyroidism. PAST SURGICAL HISTORY: Cholecystectomy, MediPort placement, right hand surgery , thyroidectomy, radioactive iodine therapy for papillary carcinoma. PAST PSYCHIATRIC HISTORY: Reviewed and negative. ALLERGIES: No known drug allergies. SOCIAL HISTORY: Patient denies any tobacco, alcohol or illicit drug abuse. FAMILY HISTORY: Mother is 94 years of age and she has coronary artery disease, hypertension and diabetes. Father in 70s from coronary artery disease. The patient has 3 children. CURRENT HOME MEDICATIONS: Amlodipine 5 mg p.o. daily, [place] 5 one tablet q.4 hourly p.r.n., Synthroid 125 mcg p.o. daily, lisinopril 5 mg p.o. daily, potassium chloride 10 mEq p.o. daily. EMERGENCY ROOM COURSE: The patient is given morphine 4 mg, IV fluid, and Tylenol 650 mg. PHYSICAL EXAMINATION: VITAL SIGNS: On arrival, blood pressure 129/64, pulse 89, respiratory rate 18, temperature 98.7, saturation 97% on room air, weight 70.3 kilograms. GENERAL: Patient is currently alert, awake, no obvious acute distress. HEAD: Normocephalic, atraumatic. EYES: Pupils round, reactive to light. Extraocular muscle intact. Pallor plus. ENT: Oropharynx within normal limits. Pale mucous membranes, no oral lesion, no pharyngeal erythema, no exudate. NECK: Supple, no JVD, no thyromegaly, no carotid bruit. LUNGS: Clear to auscultation without any rhonchi or rales. CARDIAC: S1 and S2 regular without any significant murmur. ABDOMEN: Soft, bowel sounds present, nontender, nondistended. No organomegaly , no mass, no suprapubic tenderness. BACK: Examination unremarkable, no CVA tenderness. EXTREMITIES: Upper extremity passive movement of all joints are normal. Lower extremities: No edema. Good peripheral pulsation. SKIN: No skin rash. HEMATOLOGICAL SYSTEM: No lymphadenopathy. PSYCHIATRIC: Normal affect. IMAGING DATA AND SIGNIFICANT LABORATORY DATA: 1. Normal sinus rhythm, within normal limit. 2. CBC: WBC 0.9, hemoglobin 7.2, platelets 31. D-dimer greater than 20. 3. BMP: Sodium 127, potassium 4.4, chloride 100, carbon dioxide 19, anion gap 12, BUN 17, creatinine 0.78, glucose 127. 4. Calcium 9.5. 5. LFT: AST 81, ALT 38, alkaline phosphatase is 98, albumin 3.0, lipase 26. Urinalysis suggestive of UTI. 6. CT angio result is pending. Chest x-ray based on my review pulmonary nodule. ASSESSMENT AND PLAN/IMPRESSION: 1. Generalized weakness. 2. Urinary tract infection. 3. Pancytopenia due to chemotherapy with neutropenia. 4. Symptomatic anemia. 5. Elevated D-dimer with negative ultrasound of lower extremity. 6. Hyponatremia. 7. Mild metabolic acidosis. 8. Hypoalbuminemia. 9. History of hypertension and hypothyroidism. PLAN: Full admission to medical floor. The patient will be given IV fluid NS at 100 mL per hour. We will do CT lumbar spine to rule out any lumbar spine pathology. CT angio was done to rule out PE because of elevated D-dimer. Ultrasound is negative already with DVT. Patient will be given blood transfusion. The patient will be given Rocephin 2 gram IV daily for urinary tract infection and Florastor 250 mg p.o. daily. The patient's selected home medication will be continued. We will follow up on urine culture result. We will monitor labs. Deep venous thrombosis prophylaxis. No Lovenox because of low platelet count. GI prophylaxis, Pepcid 20 mg p.o. b.i.d. Code status: Patient has out of hospital DNR and she wanted to keep herself as DNR, she does not to try CPR or intubation even one time in case of cardiopulmonary arrest, In this way, based on her request, we are keeping as a DNR. Plan of care discussed with the patient in detail. HANNAH
[2017-10-19] MEDS: Sodium Chloride 0.9% 1,000 ML IV SCH (16:22)
[2017-10-19] MEDS: cefTRIAXone\\ROCEPHIN 2 GM in Sodium Chloride 0.9% 100 ML IVPB SCH (17:33)
--- NOTE | 2017-10-19 18:41 | CT ---
CT LUMBAR SPINE NONCONTRAST: DATE: 10/19/17 TIME: 6:06 p.m. HISTORY: 72-year-old female with bilateral lower extremity pain and weakness, sciatica. COMPARISON: No prior CTs of lumbar spine. FINDINGS: There is a diffusely heterogeneous, mixed sclerotic and lucent pattern to all visualized osseous stru ctures, highly suspicious for very diffuse osseous metastasis, given the history of breast cancer. Th ere is excreted contrast material throughout the bilateral renal collecting systems and bilateral ure ters, and in a distended urinary bladder. There is moderate right hydroureteronephrosis and mild left hydroureteronephrosis, probably due to the distended urinary bladder. The vertebral body heights are maintained. There is mild disc space narrowing at L1-2. No high grade disc space narrowing at any level. Minimal calcified disc bulge at L1-2 with minimal or mild central spinal canal stenosis. At L3-4, there is diffuse disc bulge, mild to moderate thickening of the ligamentum flavum, mild to m oderate bilateral degenerative facet changes, resulting in moderate central spinal canal stenosis, mo derate right neural foraminal stenosis, and mild to moderate left neural foraminal stenosis. At L4-5, there is severe bilateral degenerative facet hypertrophy, mild disc bulge, moderate central spinal canal stenosis, and mild to moderate bilateral neural foraminal stenosis. At L5-S1, there is bilateral severe facet DJD, but no central stenosis and no neural foraminal stenos is. IMPRESSION: 1. Evidence for very diffuse, extensive osseous metastatic disease. 2. Very distended bladder, probably causing the bilateral hydronephrosis. 3. No pathologic fracture. 4. Moderate central spinal canal stenosis at L3-4 and L4-5. 5. Severe bilateral facet osteoarthrosis at L4-5 and L5-S1. POS: [facility]
[2017-10-19] MEDS: Famotidine 20 MG TAB PO SCH (20:18)
[2017-10-19] MEDS: Acetaminophen 325 MG TAB PO PRN (20:20)
[2017-10-20] MEDS: Sodium Chloride 0.9% 1,000 ML IV SCH ×3 (00:37→22:23)
[2017-10-20 05:24] LABS: Hemoglobin 9.4 g/dL (12.0-16.0); Mean Corpuscular HGB CONC 34.8 g/dL (32.0-36.0); Mean Corpuscular Volume 86.2 fL (78.0-98.0); Mean Platelet Volume 7.9 fL (7.4-10.4); Platelet Count 23 thou/uL (130-400); RBC Distribution Width 14.7 % (11.5-14.5); Red Blood Cell (RBC) Count 3.14 mill/uL (4.20-5.40)
[2017-10-20 05:27] LABS: Anion Gap 11 mmol/L (10-20); BUN (Urea Nitrogen) 7 mg/dL (9.8-20.1); Calc. Creatinine Clearance 97 mL/min (70-130); Calcium 8.9 mg/dL (7.8-10.44); Carbon Dioxide 21 mmol/L (23-31); Chloride 106 mmol/L (98-107); Estimated GFR-MDRD Greater than 90; Glucose 119 mg/dL (80-115); Potassium 3.7 mmol/L (3.5-5.1); Sodium 134 mmol/L (136-145)
[2017-10-20 06:00] LABS: #Lymphocytes 0.4 thou/uL (1.20-3.40); #Monocytes 0.1 thou/uL (0.11-0.59); #Neutrophils 0.5 thou/uL (1.40-6.50); %Eosinophils 2.9 % (0.0-10.0); %Lymphocytes 36.5 % (21.0-51.0); %Monocytes 8.8 % (0.0-10.0); %Neutrophils 51.9 % (42.0-75.0)
[2017-10-20 06:01] LABS: PLT Morphology Comment Appears Decreased
[2017-10-20] MEDS: Levothyroxine Sodium 125 MCG TAB PO SCH (06:11)
[2017-10-20] MEDS: Potassium Chloride 10 MEQ TAB PO SCH (08:47)
[2017-10-20] MEDS: Saccharomyces boulardii 250 MG CAP PO SCH (08:47)
[2017-10-20] MEDS: Famotidine 20 MG TAB PO SCH ×2 (08:47→22:17)
[2017-10-20] MEDS: Lisinopril 5 MG TAB PO SCH (08:48)
[2017-10-20] MEDS: Amlodipine 5 MG TAB PO SCH (08:48)
--- NOTE | 2017-10-20 10:48 | PDOC.PN ---
- Subjective Encounter Start Date: 10/20/17 Encounter Start Time: 08:50 -: old records requested/rev Patient seen and examined. No new complaints. No overnight events today has less pain, feels better - Objective Resuscitation Status: Resuscitation Status DNR:Do Not Resuscitate MAR Reviewed: Yes Vital Signs & Weight: Vital Signs (12 hours) Temp Pulse Pulse Resp BP BP BP 10/20/17 08:48 86 163/81 H 10/20/17 08:01 97.8 F 86 18 163/81 H 10/20/17 08:00 97.8 F 86 18 10/20/17 04:00 98.1 F 82 18 145/76 H 10/19/17 23:05 98.9 F 96 18 134/74 Pulse Ox 10/20/17 08:48 10/20/17 08:01 98 10/20/17 08:00 98 10/20/17 04:00 97 10/19/17 23:05 97 Weight Admit Weight 160 lb 3 oz Weight 157 lb I&O: 10/19/17 10/20/17 10/21/17 06:59 06:59 06:59 Intake Total 1170 Output Total 200 Balance 970 Result Diagrams: 10/20/17 04:41 10/20/17 04:41 Radiology Reviewed by me: Yes (CT LS) Phys Exam - Physical Examination Constitutional: NAD HEENT: PERRLA, moist MMs, sclera anicteric Neck: no JVD, supple Respiratory: no wheezing, no rales, no rhonchi Cardiovascular: RRR, no significant murmur, no rub Gastrointestinal: soft, non-tender, no distention, positive bowel sounds Musculoskeletal: no edema, pulses present Neurological: non-focal Lymphatic: no nodes Psychiatric: normal affect Skin: no rash, normal turgor Dx/Plan (1) Acute urinary retention Code(s): R33.8 - OTHER RETENTION OF URINE Status: Acute (2) Bilateral hydronephrosis Code(s): N13.30 - UNSPECIFIED HYDRONEPHROSIS Status: Acute (3) Hyponatremia Code(s): E87.1 - HYPO-OSMOLALITY AND HYPONATREMIA Status: Acute (4) Sciatica Code(s): M54.30 - SCIATICA, UNSPECIFIED SIDE Status: Acute (5) UTI (urinary tract infection) Status: Acute (6) DJD (degenerative joint disease), lumbar Code(s): M47.816 - SPONDYLOSIS W/O MYELOPATHY OR RADICULOPATHY, LUMBAR REGION Status: Chronic (7) Hypertension Code(s): I10 - ESSENTIAL (PRIMARY) HYPERTENSION Status: Chronic (8) Hypothyroidism Code(s): E03.9 - HYPOTHYROIDISM, UNSPECIFIED Status: Chronic (9) Lumbar canal stenosis Code(s): M48.061 - SPINAL STENOSIS, LUMBAR REGION WITHOUT NEUROGENIC COLT Status: Chronic (10) Metastatic breast carcinoma Code(s): C50.919 - MALIGNANT NEOPLASM OF UNSP SITE OF UNSPECIFIED FEMALE BREAST Status: Chronic (11) Moderate protein-calorie malnutrition Code(s): E44.0 - MODERATE PROTEIN-CALORIE MALNUTRITION Status: Chronic Comment: Continue nutritional supplements. (12) Pancytopenia Code(s): D61.818 - OTHER PANCYTOPENIA Status: Chronic - Plan cont current plan of care, continue antibiotics, PT/OT, licensed social worker * monitor bladder scan after voiding * consult oncology for metastatic breast cancer * medication reviewed as below * symptomatic treatment * contineu IVF * follow up on urine culture result * continue rocephin Review of Systems - Review of Systems Eyes: negative: Pain, Vision Change, Conjunctivae Inflammation, Eyelid Inflammation, Redness, Other ENT: negative: Ear Pain, Ear Discharge, Nose Pain, Nose Discharge, Nose Congestion, Mouth Pain, Mouth Swelling, Throat Pain, Throat Swelling, Other Respiratory: negative: Cough, Dry, Shortness of Breath, Hemoptysis, SOB with Excertion, Pleuritic Pain, Sputum, Wheezing Cardiovascular: negative: chest pain, palpitations, orthopnea, paroxysmal nocturnal dyspnea, edema, light headedness, other Gastrointestinal: negative: Nausea, Vomiting, Abdominal Pain, Diarrhea, Constipation, Melena, Hematochezia, Other Genitourinary: negative: Dysuria, Frequency, Incontinence, Hematuria, Retention , Other Musculoskeletal: negative: Neck Pain, Shoulder Pain, Arm Pain, Back Pain, Hand Pain, Leg Pain, Foot Pain, Other Skin: negative: Rash, Lesions, [place], Bruising, Other - Medications/Allergies Allergies/Adverse Reactions: Allergies Allergy/AdvReac Type Severity Reaction Status Date / Time No Known Allergies Allergy Verified 08/23/17 04:37 Medications: Current Medications Acetaminophen (Tylenol) 650 mg PO Q4H PRN PRN Reason: Headache/Fever or Pain Last Admin: 10/19/17 20:20 Dose: 650 mg Hydrocodone Bitart/Acetaminophen ([place] 5/325) 1 tab PO Q4H PRN PRN Reason: Moderate Pain (4-6) Al Hydroxide/Mg Hydroxide (Maalox) 30 ml PO Q6H PRN PRN Reason: Heartburn or Indigestion Amlodipine Besylate (Norvasc) 5 mg PO DAILY [facility] Last Admin: 10/20/17 08:48 Dose: 5 mg Artificial Tears (Tears Naturale) 0 drop EA EYE PRN PRN PRN Reason: Dry Eyes Famotidine (Pepcid) 20 mg PO BID [facility] Last Admin: 10/20/17 08:47 Dose: 20 mg Guaifenesin (Robitussin Sf) 200 mg PO Q4H PRN PRN Reason: Cough Hydralazine HCl (Apresoline) 10 mg SLOW IVP Q4H PRN PRN Reason: Systolic BP > 180 Sodium Chloride (Normal Saline 0.9%) 1,000 mls @ 100 mls/hr IV .Q10H [facility] Last Admin: 10/20/17 06:12 Dose: 1,000 mls Ceftriaxone Sodium 2 gm/ (Sodium Chloride) 100 mls @ 200 mls/hr IVPB Q24HR [facility] Last Admin: 10/19/17 17:33 Dose: 100 mls Levothyroxine Sodium (Synthroid) 125 mcg PO 0600 [facility] Last Admin: 10/20/17 06:11 Dose: 125 mcg Lisinopril (Zestril) 5 mg PO DAILY [facility] Last Admin: 10/20/17 08:48 Dose: 5 mg Loperamide HCl (Imodium) 2 mg PO PRN PRN PRN Reason: Diarrhea/Loose Stools Loratadine (Claritin) 10 mg PO DAILYPRN PRN PRN Reason: Sinus Symptoms Magnesium Hydroxide (Milk Of Magnesium) 30 ml PO DAILYPRN PRN PRN Reason: Constipation Mineral Oil/White Petrolatum (Eucerin Cream) 0 gm TOP BIDPRN PRN PRN Reason: Dry Skin Morphine Sulfate (Morphine Sulfate) 4 mg SLOW IVP Q4H PRN PRN Reason: Pain Ondansetron HCl (Zofran Odt) 4 mg PO Q6H PRN PRN Reason: Nausea/Vomiting Ondansetron HCl (Zofran) 4 mg IVP Q6H PRN PRN Reason: Nausea/Vomiting Phenol (Chloraseptic [place] 180 Ml Bot) 0 ml PO PRN PRN PRN Reason: Sore Throat Potassium Chloride (Klor-Con 10) 10 meq PO DAILY [facility] Last Admin: 10/20/17 08:47 Dose: 10 meq Saccharomyces Boulardii (Florastor) 250 mg PO DAILY [facility] Last Admin: 10/20/17 08:47 Dose: 250 mg Senna (Senokot) 2 tab PO HSPRN PRN PRN Reason: Constipation Sodium Chloride ([place] Nasal [place] 0.65%) 0 ml EA NARE QIDPRN PRN PRN Reason: Nasal Congestion Zolpidem Tartrate (Ambien) 5 mg PO HSPRN PRN PRN Reason: Insomnia
[2017-10-20] MEDS: cefTRIAXone\\ROCEPHIN 2 GM in Sodium Chloride 0.9% 100 ML IVPB SCH (16:13)
[2017-10-20] MEDS: Acetaminophen 325 MG TAB PO PRN (17:39)
--- NOTE | 2017-10-20 18:56 | CON ---
DATE OF CONSULTATION: 10/20/2017 REASON FOR CONSULTATION: Breast cancer. HISTORY OF PRESENT ILLNESS: Ms. Green is a 72-year-old female well known to our service who has metastatic breast cancer. She presented to the emergency room with complaints of right lower extremity pain. She had a negative venous Doppler. Urinalysis showed likely UTI. She has chronic pancytopenia and was admitted for likely infection. Her urine culture did grow E. coli and she is on antibiotics and feeling much better today. Patient had recent progression of her malignancy in 02/25. She completed chemotherapy in May and underwent radiation which ended in 07/2017. She was pancytopenic since that time with recent worsening of her counts. She did undergo a bone marrow in the office last week. PAST MEDICAL HISTORY: 1. Metastatic breast cancer. 2. Hypertension. 3. Hypothyroidism. PAST SURGICAL HISTORY: 1. Cholecystectomy. 2. MediPort placement. 3. Right hand surgery. 4. Thyroidectomy for papillary carcinoma of the thyroid. ALLERGIES: No known drug allergies. HOME MEDICATIONS: 1. Amlodipine 5 mg daily. 2. Hydrocodone p.r.n. 3. Synthroid 125 mcg daily. 4. Lisinopril 5 mg daily. 5. Potassium chloride 10 mEq daily. FAMILY HISTORY: Sister had thyroid cancer. No history of breast or ovarian cancer. SOCIAL HISTORY: Single, lives with her boyfriend, has 3 children. No alcohol, tobacco or illicit dr ug use. REVIEW OF SYSTEMS: Twelve-point review of systems is negative. PHYSICAL EXAMINATION: VITAL SIGNS: Temperature is 98.0, pulse is 99, respiratory rate 18, BP is 152/78. She is 98% on fabienne m air. GENERAL: Well-developed and well-nourished female in no acute distress. HEENT: Normocephalic, atraumatic. Pupils equal and reactive to light. NECK: Supple. CARDIOVASCULAR: Regular rate and rhythm. LUNGS: Clear. ABDOMEN: Soft, nontender, bowel sounds are positive. EXTREMITIES: No clubbing, cyanosis or edema. SKIN: No rash. HEMATOLOGIC: No petechia or purpura. NEUROLOGIC: Nonfocal. BREAST: Right breast has subcutaneous nodules less than 1 cm. PERTINENT LABORATORY DATA AND IMAGING DATA: Current WBCs are 1.0, hemoglobin is 9.4, hematocrit 27.1 , platelet count is 23,000. She has got 52% neutrophils, 36% lymphocytes. Sodium is 134, potassium 3.7, chloride 106, CO2 is 21, BUN is 7, creatinine 0.62, calcium is 8.9, total bilirubin is 0.5, AST is 81, ALT 38, alkaline phosphatase is 98, serum total protein is 8.8, albumin 3, globulin 5.8, lipas e is 26. Urine was positive for blood, nitrite, leukocyte esterase and bacteria. ASSESSMENT: 1. Metastatic breast cancer with bone marrow involvement. 2. Pancytopenia secondary to #1. 3. Urinary tract infection with Escherichia coli bacteremia. 4. Feeling much better today.
[2017-10-20] MEDS ORDERED: Sodium Chloride 0.9% 10 ML ONE (19:03)
[2017-10-21 04:56] LABS: Anion Gap 8 mmol/L (10-20); BUN (Urea Nitrogen) 6 mg/dL (9.8-20.1); Calc. Creatinine Clearance 96 mL/min (70-130); Calcium 8.7 mg/dL (7.8-10.44); Carbon Dioxide 24 mmol/L (23-31); Chloride 108 mmol/L (98-107); Estimated GFR-MDRD Greater than 90; Glucose 106 mg/dL (80-115); Potassium 3.3 mmol/L (3.5-5.1); Sodium 137 mmol/L (136-145)
[2017-10-21 04:59] LABS: Hemoglobin 9.1 g/dL (12.0-16.0); Mean Corpuscular HGB CONC 34.4 g/dL (32.0-36.0); Mean Corpuscular Hemoglobin 29.5 pg (27.0-31.0); Mean Corpuscular Volume 85.7 fL (78.0-98.0); Mean Platelet Volume 7.5 fL (7.4-10.4); Platelet Count 21 thou/uL (130-400); RBC Distribution Width 15.3 % (11.5-14.5); Red Blood Cell (RBC) Count 3.08 mill/uL (4.20-5.40); White Blood Cell (WBC) Count 1.1 thou/uL (4.8-10.8)
[2017-10-21 05:20] LABS: Band 8 % (5-11); Lymphocytes 56 % (21-51); MDiff Complete? YES; Metamyelocyte 2 % (0-0); Monocytes 8 % (0-10); Neutrophil 26 % (42-75); PLT Morphology Comment Appears Decreased
[2017-10-21] MEDS: Levothyroxine Sodium 125 MCG TAB PO SCH (06:19)
[2017-10-21] MEDS ORDERED: Potassium Chloride 20 MEQ TAB PO SCH (07:45)
[2017-10-21] MEDS: Sodium Chloride 0.9% 1,000 ML IV SCH (07:46)
[2017-10-21] MEDS: Potassium Chloride 10 MEQ TAB PO SCH (09:32)
[2017-10-21] MEDS: Amlodipine 5 MG TAB PO SCH (09:33)
[2017-10-21] MEDS: Saccharomyces boulardii 250 MG CAP PO SCH (09:33)
[2017-10-21] MEDS: Famotidine 20 MG TAB PO SCH ×2 (09:36→21:55)
[2017-10-21] MEDS: Megestrol Acetate 40 MG TAB PO SCH (09:37)
[2017-10-21] MEDS: Lisinopril 5 MG TAB PO SCH (09:37)
--- NOTE | 2017-10-21 10:29 | PDOC.PN ---
- Subjective Encounter Start Date: 10/21/17 Encounter Start Time: 08:50 Patient seen and examined. No new complaints. No overnight events pt required burnette for retention - Objective Resuscitation Status: Resuscitation Status DNR:Do Not Resuscitate MAR Reviewed: Yes Vital Signs & Weight: Vital Signs (12 hours) Temp Pulse Resp BP BP Pulse Ox 10/21/17 09:37 109 H 136/81 10/21/17 09:33 109 H 136/81 10/21/17 07:39 98.2 F 85 16 148/74 H 97 10/21/17 04:00 98.7 F 80 16 156/66 H 96 10/21/17 00:00 98.3 F 83 16 128/69 98 Weight Admit Weight 160 lb 3 oz Weight 157 lb 6.561 oz I&O: 10/20/17 10/21/17 10/22/17 06:59 06:59 06:59 Intake Total 1170 1200 Output Total 200 3750 Balance 970 -2550 Result Diagrams: 10/21/17 03:58 10/21/17 03:58 Phys Exam - Physical Examination Constitutional: NAD HEENT: PERRLA, moist MMs, sclera anicteric Neck: no JVD, supple Respiratory: no wheezing, no rales, no rhonchi Cardiovascular: RRR, no significant murmur, no rub Gastrointestinal: soft, non-tender, no distention, positive bowel sounds burnette with pinkish urine Musculoskeletal: no edema, pulses present Neurological: non-focal, normal sensation Psychiatric: normal affect, A&O x 3 Skin: no rash, normal turgor Dx/Plan (1) Acute urinary retention Code(s): R33.8 - OTHER RETENTION OF URINE Status: Acute (2) Bilateral hydronephrosis Code(s): N13.30 - UNSPECIFIED HYDRONEPHROSIS Status: Acute (3) Hyponatremia Code(s): E87.1 - HYPO-OSMOLALITY AND HYPONATREMIA Status: Acute (4) Sciatica Code(s): M54.30 - SCIATICA, UNSPECIFIED SIDE Status: Acute (5) UTI (urinary tract infection) Status: Acute (6) DJD (degenerative joint disease), lumbar Code(s): M47.816 - SPONDYLOSIS W/O MYELOPATHY OR RADICULOPATHY, LUMBAR REGION Status: Chronic (7) Hypertension Code(s): I10 - ESSENTIAL (PRIMARY) HYPERTENSION Status: Chronic (8) Hypothyroidism Code(s): E03.9 - HYPOTHYROIDISM, UNSPECIFIED Status: Chronic (9) Lumbar canal stenosis Code(s): M48.061 - SPINAL STENOSIS, LUMBAR REGION WITHOUT NEUROGENIC COLT Status: Chronic (10) Metastatic breast carcinoma Code(s): C50.919 - MALIGNANT NEOPLASM OF UNSP SITE OF UNSPECIFIED FEMALE BREAST Status: Chronic (11) Moderate protein-calorie malnutrition Code(s): E44.0 - MODERATE PROTEIN-CALORIE MALNUTRITION Status: Chronic Comment: Continue nutritional supplements. (12) Pancytopenia Code(s): D61.818 - OTHER PANCYTOPENIA Status: Chronic - Plan cont current plan of care, continue antibiotics * e coli is pansensitive * will consult urology * she will need to go home with burnette * medication reviewed as below * symptomatic treatment * on discharge oral cipro. Review of Systems - Review of Systems Eyes: negative: Pain, Vision Change, Conjunctivae Inflammation, Eyelid Inflammation, Redness, Other ENT: negative: Ear Pain, Ear Discharge, Nose Pain, Nose Discharge, Nose Congestion, Mouth Pain, Mouth Swelling, Throat Pain, Throat Swelling, Other Respiratory: negative: Cough, Dry, Shortness of Breath, Hemoptysis, SOB with Excertion, Pleuritic Pain, Sputum, Wheezing Cardiovascular: negative: chest pain, palpitations, orthopnea, paroxysmal nocturnal dyspnea, edema, light headedness, other Gastrointestinal: negative: Nausea, Vomiting, Abdominal Pain, Diarrhea, Constipation, Melena, Hematochezia, Other Genitourinary: Hematuria, Retention. negative: Dysuria, Frequency, Incontinence , Other Musculoskeletal: negative: Neck Pain, Shoulder Pain, Arm Pain, Back Pain, Hand Pain, Leg Pain, Foot Pain, Other Skin: negative: Rash, Lesions, Edmund, Bruising, Other - Medications/Allergies Allergies/Adverse Reactions: Allergies Allergy/AdvReac Type Severity Reaction Status Date / Time No Known Allergies Allergy Verified 08/23/17 04:37 Medications: Current Medications Acetaminophen (Tylenol) 650 mg PO Q4H PRN PRN Reason: Headache/Fever or Pain Last Admin: 10/20/17 17:39 Dose: 650 mg Hydrocodone Bitart/Acetaminophen ([place] 5/325) 1 tab PO Q4H PRN PRN Reason: Moderate Pain (4-6) Al Hydroxide/Mg Hydroxide (Maalox) 30 ml PO Q6H PRN PRN Reason: Heartburn or Indigestion Amlodipine Besylate (Norvasc) 5 mg PO DAILY [facility] Last Admin: 10/21/17 09:33 Dose: 5 mg Artificial Tears (Tears Naturale) 0 drop EA EYE PRN PRN PRN Reason: Dry Eyes Famotidine (Pepcid) 20 mg PO BID [facility] Last Admin: 10/21/17 09:36 Dose: Not Given Guaifenesin (Robitussin Sf) 200 mg PO Q4H PRN PRN Reason: Cough Hydralazine HCl (Apresoline) 10 mg SLOW IVP Q4H PRN PRN Reason: Systolic BP > 180 Ceftriaxone Sodium 2 gm/ (Sodium Chloride) 100 mls @ 200 mls/hr IVPB Q24HR [facility] Last Admin: 10/20/17 16:13 Dose: 100 mls Levothyroxine Sodium (Synthroid) 125 mcg PO 0600 [facility] Last Admin: 10/21/17 06:19 Dose: 125 mcg Lisinopril (Zestril) 5 mg PO DAILY [facility] Last Admin: 10/21/17 09:37 Dose: 5 mg Loperamide HCl (Imodium) 2 mg PO PRN PRN PRN Reason: Diarrhea/Loose Stools Loratadine (Claritin) 10 mg PO DAILYPRN PRN PRN Reason: Sinus Symptoms Magnesium Hydroxide (Milk Of Magnesium) 30 ml PO DAILYPRN PRN PRN Reason: Constipation Megestrol Acetate (Megace) 40 mg PO DAILY [facility] Last Admin: 10/21/17 09:37 Dose: 40 mg Mineral Oil/White Petrolatum (Eucerin Cream) 0 gm TOP BIDPRN PRN PRN Reason: Dry Skin Morphine Sulfate (Morphine Sulfate) 4 mg SLOW IVP Q4H PRN PRN Reason: Pain Ondansetron HCl (Zofran Odt) 4 mg PO Q6H PRN PRN Reason: Nausea/Vomiting Ondansetron HCl (Zofran) 4 mg IVP Q6H PRN PRN Reason: Nausea/Vomiting Phenol (Chloraseptic [place] 180 Ml Bot) 0 ml PO PRN PRN PRN Reason: Sore Throat Potassium Chloride (Klor-Con 10) 10 meq PO DAILY [facility] Last Admin: 10/21/17 09:32 Dose: 10 meq Saccharomyces Boulardii (Florastor) 250 mg PO DAILY [facility] Last Admin: 10/21/17 09:33 Dose: 250 mg Senna (Senokot) 2 tab PO HSPRN PRN PRN Reason: Constipation Sodium Chloride ([place] Nas[place] 0.65%) 0 ml EA NARE QIDPRN PRN PRN Reason: Nasal Congestion Sodium Chloride (Flush - Normal Saline) 10 ml IVF Q12HR [facility] Last Admin: 10/21/17 09:32 Dose: 10 ml Sodium Chloride (Flush - Normal Saline) 10 ml IVF PRN PRN PRN Reason: Saline Flush Zolpidem Tartrate (Ambien) 5 mg PO HSPRN PRN PRN Reason: Insomnia
[2017-10-21] MEDS: cefTRIAXone\\ROCEPHIN 2 GM in Sodium Chloride 0.9% 100 ML IVPB SCH (16:36)
--- NOTE | 2017-10-21 17:28 | CON ---
DATE OF CONSULTATION: 10/21/2017 Consultation was requested for retention and urinary tract infection. HISTORY OF PRESENT ILLNESS: The patient is a 72-year-old female who was admitted with significant ri ght lower extremity pain that prevented her from sitting or standing, but it is much better since the admission. At the same time, she denied any concerns for obvious retention or incomplete emptying, but a bladder scan revealed a full bladder and a Cuevas catheter was placed for 1750 mL. She does not e in the past month, she is going every hour and has nocturia x3 for small amounts. It also increase d in amount of leakage she has, requiring 3-4 liners a day which is also new. She denied weak stream , straining or obvious incomplete emptying though. She has never had prior retention, urinary tract infections, kidney stones or incontinence up until now. PAST MEDICAL HISTORY: Negative for diverticulitis, hypertension. Thyroid cancer in 2013 resulting i n hypothyroid metastatic breast cancer, status post chemo in 2012, then hormone therapy and then recu rrence, so chemotherapy was reinitiated followed by breast radiation, which she completed in June or July time. She is not sure the exact timing, but the last chemotherapy could have been around 05/28 018. PAST SURGICAL HISTORY: Gallbladder, right hand for a nodule thyroidectomy with radioactive iodine an d the [facility]. PAST TEACHER EMOTIONALLY IMPAIRED. She had 3 vaginal deliveries. She is postmenopausal in the past month or so. She has had vaginal spotting, not daily and it stayed about the same since she first noted it. MEDICATIONS: Amlodipine, Synthroid, lisinopril, potassium, and pain medications. ALLERGIES: None. REVIEW OF SYSTEMS: The above-mentioned vaginal spotting, no shortness of breath, no chest pain, but she does admit to cough in the morning for which she coughs up clear phlegm. Her bowels are okay. S he has a bowel movement about every other day. She is not constipated nor having diarrhea. Pap smea r was remote. Mammogram was in 2014 and normal on the left. She has never had a colonoscopy. SOCIAL HISTORY: She does not smoke, drink or use drugs. She lives with a partner and has a neighbor that checks on her other than nurses that also check on her. It does not sound as though any family to include brothers or sisters or kids live nearby. FAMILY HISTORY: Significant for 5 sisters and 3 brothers. One brother in his 50s. She is not sure why. Another sister had thyroid cancer, but is doing well. Dad at 71 of heart disease. Edgar schwarz is still living at 94 with dementia. She has not had cancer. PHYSICAL EXAMINATION: GENERAL: She is sitting comfortably on the bedside. She is in no apparent distress. Nonlabored paulina athing. She is dabbing a Kleenex at her nose given a small amount of bleeding that has occurred. CARDIOVASCULAR: Regular rate and rhythm without murmurs, gallops or rubs. LUNGS: Clear to auscultation bilaterally. There is no JVD. There is no scleral icterus. She did h ave some pallor to otherwise dark complexion noted. ABDOMEN: Soft, nondistended, nontender. She had no costovertebral angle tenderness. EXTREMITIES: No lower extremity edema. GENITOURINARY: A Cuevas catheter was in place with yellow urine in the tubing that was actually clamp ed. I am not sure if this was intentional or not, but I unclamped it and more yellow urine flowed in the bag and had pink-tinged urine. LABORATORY DATA: Reveal a significantly abnormal CBC of 1.1 WBCs, anemia of 9.1 and 26.4 and a plate let of 21,000. BUN and creatinine are 6 and 0.61. The highest her creatinine has been as 1.13 in Ap ril of this past year. Her urinalysis from her admission shows 7-10 WBCs, 0-3 RBCs, 2+ bacteria and 7-10 squamous cells. A culture is growing E. coli. There was also 1+ calcium oxalate crystals noted in that urinalysis. Her urinalysis from 10/04/2017 showed 0-3 WBCs, 21-50 RBCs, no bacteria, no squ amous cells. There is a culture associated with this. All her prior urines were normal without any concerns for urinary tract infections or hematuria. CT scan from 10/15/2014 with contrast and from 12/14/2014 also with contrast were reviewed personally and showed similar results, which included no stones, hydronephrosis or masses. There is normal bladder with an adjacent mass that represents the uterus are in place of the uterus pushing on the bl adder. ASSESSMENT AND PLAN: We have a 72-year-old female with metastatic breast cancer, presumably a persis tent pelvic mass, but I am unsure of this based on the updated imaging with a recent urinary tract in fection and microhematuria related to bladder overdistension and retention. We reviewed this in cezar nicole and how it allowed the bladder rest for at least 1-2 weeks with an indwelling Cueavs. We also disc ussed learning intermittent catheterization and following up in my office for a voiding trial, I woul d start her on tamsulosin today and keep this going until she is adequately voiding and potentially i ndefinitely. I would continue the Rocephin for 5-7 day course and then no further antibiotics are in dicated from a urine standpoint. We discussed how the indwelling and especially with significant low platelets is concerning and must be taking care of, not to be pulled or pinched as this can result i n significant bleeding. I reviewed all this with her in detail. All questions were answered. I jet l start tamsulosin. She can be discharged home with the Cuevas catheter. I will give her instruction s on how to remove it and presents in the office for voiding trial as well as instructions on intermi ttent catheterizations.
[2017-10-21] MEDS ORDERED: Tamsulosin HCl 0.4 MG CAP PO SCH ×2 (21:00)
[2017-10-22] MEDS: Levothyroxine Sodium 125 MCG TAB PO SCH (06:34)
--- NOTE | 2017-10-22 08:56 | PRG ---
DATE OF SERVICE: 10/22/2017 SUBJECTIVE: The patient has done well overnight. She continued with intermittent spasms of the blad gianluca, but they are not any worse than yesterday and it has otherwise been draining fine. She has no o ther complaints. OBJECTIVE: VITAL SIGNS: Temperature has been 99.0 and currently 98.7, heart rate in the 90s and even 109 later in the morning yesterday with a blood pressure of 122/70, satting 98% on room air. She put out 2 lit ers after the 1750 and then again over the last 24 hours another liter. LABORATORY DATA: No new labs have been obtained, but the urine culture did grow back E. coli, 25,000 -50,000 in quantity, sensitive to everything. ASSESSMENT AND PLAN: A 72-year-old female with metastatic breast cancer, status post chemotherapy an d radiation with significant pancytopenia as well as a urinary tract infection and retention, nick Topete currently. She should continue with indwelling upon discharge and followup for voiding t rial with me. I have started tamsulosin and I have asked her to continue this daily. The antibiotic s can be continued for 3-5 days and then stopped. I reviewed intermittent catheterization with her hkadijah franco and I have sent over notes for the nurses to review this in addition to catheter care and aubrey nik prior to her discharge and she can follow up with me for voiding trial.
[2017-10-22] MEDS ORDERED: Tamsulosin HCl 0.4 MG CAP PO SCH ×2 (09:00)
[2017-10-22] MEDS: Saccharomyces boulardii 250 MG CAP PO SCH (09:10)
[2017-10-22] MEDS: Lisinopril 5 MG TAB PO SCH (09:11)
[2017-10-22] MEDS: Megestrol Acetate 40 MG TAB PO SCH (09:11)
[2017-10-22] MEDS: Amlodipine 5 MG TAB PO SCH (09:11)
[2017-10-22] MEDS: Potassium Chloride 10 MEQ TAB PO SCH (09:11)
[2017-10-22] MEDS: Famotidine 20 MG TAB PO SCH (09:12)
--- NOTE | 2017-10-22 09:39 | PDOC.PN ---
- Subjective Encounter Start Date: 10/22/17 Encounter Start Time: 08:10 Patient seen and examined. No new complaints. No overnight events - Objective Resuscitation Status: Resuscitation Status DNR:Do Not Resuscitate MAR Reviewed: Yes Vital Signs & Weight: Vital Signs (12 hours) Temp Pulse Resp BP BP Pulse Ox 10/22/17 09:11 90 122/70 10/22/17 07:34 98.7 F 90 16 122/70 98 Weight Admit Weight 160 lb 3 oz Weight 156 lb 8.451 oz I&O: 10/21/17 10/22/17 10/23/17 06:59 06:59 06:59 Intake Total 1200 740 Output Total 3750 1000 Balance -2550 -260 Result Diagrams: 10/21/17 03:58 10/21/17 03:58 Phys Exam - Physical Examination Constitutional: NAD HEENT: PERRLA, moist MMs, sclera anicteric Neck: no JVD, supple Respiratory: no wheezing, no rales, no rhonchi Cardiovascular: RRR, no significant murmur, no rub Gastrointestinal: soft, non-tender, no distention, positive bowel sounds Musculoskeletal: no edema, pulses present Neurological: non-focal, normal sensation, moves all 4 limbs Psychiatric: normal affect, A&O x 3 Skin: no rash, normal turgor Dx/Plan (1) Acute urinary retention Code(s): R33.8 - OTHER RETENTION OF URINE Status: Acute (2) Bilateral hydronephrosis Code(s): N13.30 - UNSPECIFIED HYDRONEPHROSIS Status: Acute (3) Hyponatremia Code(s): E87.1 - HYPO-OSMOLALITY AND HYPONATREMIA Status: Acute (4) Sciatica Code(s): M54.30 - SCIATICA, UNSPECIFIED SIDE Status: Acute (5) UTI (urinary tract infection) Status: Acute (6) DJD (degenerative joint disease), lumbar Code(s): M47.816 - SPONDYLOSIS W/O MYELOPATHY OR RADICULOPATHY, LUMBAR REGION Status: Chronic (7) Hypertension Code(s): I10 - ESSENTIAL (PRIMARY) HYPERTENSION Status: Chronic (8) Hypothyroidism Code(s): E03.9 - HYPOTHYROIDISM, UNSPECIFIED Status: Chronic (9) Lumbar canal stenosis Code(s): M48.061 - SPINAL STENOSIS, LUMBAR REGION WITHOUT NEUROGENIC COLT Status: Chronic (10) Metastatic breast carcinoma Code(s): C50.919 - MALIGNANT NEOPLASM OF UNSP SITE OF UNSPECIFIED FEMALE BREAST Status: Chronic (11) Moderate protein-calorie malnutrition Code(s): E44.0 - MODERATE PROTEIN-CALORIE MALNUTRITION Status: Chronic Comment: Continue nutritional supplements. (12) Pancytopenia Code(s): D61.818 - OTHER PANCYTOPENIA Status: Chronic - Plan cont current plan of care, burnette catheter, continue antibiotics * medication reviewed as below * symptomatic treatment * medically stable for discharge * discharge medication reconciliation done. * see discharge summery for details. Review of Systems - Review of Systems Eyes: negative: Pain, Vision Change, Conjunctivae Inflammation, Eyelid Inflammation, Redness, Other ENT: negative: Ear Pain, Ear Discharge, Nose Pain, Nose Discharge, Nose Congestion, Mouth Pain, Mouth Swelling, Throat Pain, Throat Swelling, Other Respiratory: negative: Cough, Dry, Shortness of Breath, Hemoptysis, SOB with Excertion, Pleuritic Pain, Sputum, Wheezing Cardiovascular: negative: chest pain, palpitations, orthopnea, paroxysmal nocturnal dyspnea, edema, light headedness, other Gastrointestinal: negative: Nausea, Vomiting, Abdominal Pain, Diarrhea, Constipation, Melena, Hematochezia, Other Genitourinary: negative: Dysuria, Frequency, Incontinence, Hematuria, Retention , Other Musculoskeletal: negative: Neck Pain, Shoulder Pain, Arm Pain, Back Pain, Hand Pain, Leg Pain, Foot Pain, Other Skin: negative: Rash, Lesions, Edmund, Bruising, Other - Medications/Allergies Allergies/Adverse Reactions: Allergies Allergy/AdvReac Type Severity Reaction Status Date / Time No Known Allergies Allergy Verified 08/23/17 04:37 Medications: Current Medications Acetaminophen (Tylenol) 650 mg PO Q4H PRN PRN Reason: Headache/Fever or Pain Last Admin: 10/20/17 17:39 Dose: 650 mg Hydrocodone Bitart/Acetaminophen ([place] 5/325) 1 tab PO Q4H PRN PRN Reason: Moderate Pain (4-6) Al Hydroxide/Mg Hydroxide (Maalox) 30 ml PO Q6H PRN PRN Reason: Heartburn or Indigestion Amlodipine Besylate (Norvasc) 5 mg PO DAILY [facility] Last Admin: 10/22/17 09:11 Dose: 5 mg Artificial Tears (Tears Naturale) 0 drop EA EYE PRN PRN PRN Reason: Dry Eyes Famotidine (Pepcid) 20 mg PO BID [facility] Last Admin: 10/22/17 09:12 Dose: Not Given Guaifenesin (Robitussin Sf) 200 mg PO Q4H PRN PRN Reason: Cough Hydralazine HCl (Apresoline) 10 mg SLOW IVP Q4H PRN PRN Reason: Systolic BP > 180 Ceftriaxone Sodium 2 gm/ (Sodium Chloride) 100 mls @ 200 mls/hr IVPB Q24HR [facility] Last Admin: 10/21/17 16:36 Dose: 100 mls Levothyroxine Sodium (Synthroid) 125 mcg PO 0600 [facility] Last Admin: 10/22/17 06:34 Dose: 125 mcg Lisinopril (Zestril) 5 mg PO DAILY [facility] Last Admin: 10/22/17 09:11 Dose: 5 mg Loperamide HCl (Imodium) 2 mg PO PRN PRN PRN Reason: Diarrhea/Loose Stools Loratadine (Claritin) 10 mg PO DAILYPRN PRN PRN Reason: Sinus Symptoms Magnesium Hydroxide (Milk Of Magnesium) 30 ml PO DAILYPRN PRN PRN Reason: Constipation Megestrol Acetate (Megace) 40 mg PO DAILY [facility] Last Admin: 10/22/17 09:11 Dose: 40 mg Mineral Oil/White Petrolatum (Eucerin Cream) 0 gm TOP BIDPRN PRN PRN Reason: Dry Skin Morphine Sulfate (Morphine Sulfate) 4 mg SLOW IVP Q4H PRN PRN Reason: Pain Ondansetron HCl (Zofran Odt) 4 mg PO Q6H PRN PRN Reason: Nausea/Vomiting Ondansetron HCl (Zofran) 4 mg IVP Q6H PRN PRN Reason: Nausea/Vomiting Phenol (Chloraseptic [place] 180 Ml Bot) 0 ml PO PRN PRN PRN Reason: Sore Throat Potassium Chloride (Klor-Con 10) 10 meq PO DAILY [facility] Last Admin: 10/22/17 09:11 Dose: 10 meq Saccharomyces Boulardii (Florastor) 250 mg PO DAILY [facility] Last Admin: 10/22/17 09:10 Dose: 250 mg Senna (Senokot) 2 tab PO HSPRN PRN PRN Reason: Constipation Sodium Chloride ([place] Nasal [place] 0.65%) 0 ml EA NARE QIDPRN PRN PRN Reason: Nasal Congestion Sodium Chloride (Flush - Normal Saline) 10 ml IVF Q12HR [facility] Last Admin: 10/22/17 09:12 Dose: 10 ml Sodium Chloride (Flush - Normal Saline) 10 ml IVF PRN PRN PRN Reason: Saline Flush Tamsulosin HCl (Flomax) 0.4 mg PO HS [facility] Last Admin: 10/21/17 21:55 Dose: 0.4 mg Tamsulosin HCl (Flomax) 0.4 mg PO DAILY [facility] Last Admin: 10/22/17 09:11 Dose: 0.4 mg Zolpidem Tartrate (Ambien) 5 mg PO HSPRN PRN PRN Reason: Insomnia
--- NOTE | 2017-10-22 10:48 | DIS ---
DATE OF ADMISSION: 10/19/2017 DATE OF DISCHARGE: 10/22/2017 PRIMARY CARE PHYSICIAN: Dr. Israel Dodge. DISCHARGE DISPOSITION: Home. PRIMARY DISCHARGE DIAGNOSES: 1. Acute sciatica. 2. Acute urinary retention. 3. Bilateral hydronephrosis. 4. Hyponatremia. 5. Urinary tract infection. SECONDARY DISCHARGE DIAGNOSES: Pancytopenia, moderate protein calorie malnutrition, metastatic breas t carcinoma, lumbar canal stenosis, hypothyroidism, hypertension, degenerative joint disease of lumba r spine. PRIMARY PROCEDURE/OPERATION: None. RADIOLOGICAL INVESTIGATION: Ultrasound of lower extremity negative for any DVT. CT angiography nega tive for pulmonary embolism. Chest x-ray normal. Lumbar spine CT scan showed osseous metastasis wit h lumbar canal stenosis and degenerative spine disease at variable level. SIGNIFICANT LABORATORY DATA: WBC 1.1, hemoglobin 9.1, platelet 21. D-dimer greater than 20. Sodium 137, creatinine 0.61, AST 81. Urinalysis suggestive of UTI. Urine culture grew E. coli. DISCHARGE MEDICATIONS: Amlodipine 5 mg p.o. daily, [place] one tablet q.4 hourly p.r.n., Synthroid 125 mcg p.o. daily, lisinopril 5 mg p.o. daily, potassium chloride 10 mEq p.o. daily, Flomax 0.4 mg p.o. b.i.d., Florastor 250 mg p.o. daily for 5 days, ciprofloxacin 500 mg p.o. b.i.d. for 5 days. CONTRAINDICATIONS: None. CODE STATUS: DNR. INPATIENT CONSULTANTS: Dr. Paulette Infante was consulted for urinary retention. Dr. Korey Ambriz with [facility] was consulted for metastatic breast cancer. TEST RESULTS PENDING ON DISCHARGE: None. ALLERGIES: No known drug allergy. DISCHARGE PLAN: Post hospital, patient will follow up with primary care physician, Dr. Korey Ambriz and Paulette Infante as instructed. HOSPITAL COURSE: A 72-year-old female who was admitted by me. Please see my HPI for further details . She came to the emergency room because she was having sciatica pain. It was significantly worse o n right side as well as on the left side. She was not able to function well, that is why she came to the ER. In the emergency room, the patient was found with elevated D-dimer and that is why they did ultrasound of the lower extremity which was negative for any DVT. CT angio was negative for PE. Ch est x-ray was unremarkable. After admission, we did lumbar spine CT scan which showed osseous metast atic disease with lumbar stenosis as well as variable level degenerative spine disease of lumbar spin e. The patient's pain was controlled with pain medication. She was admitted to medical floor. On a dmission, she had hyponatremia and she was clinically dehydrated and that is why we hydrated with IV fluid. By the time of discharge, her dehydration corrected. On admission, patient had urinary retention and her urinalysis was suggestive of UTI. She required F oley catheter. She was treated with Rocephin. Upon discharge, based on culture and sensitivity resu lt, we changed to Cipro. Urology was consulted for urinary retention and they advised to continue Cuevas catheter upon discharg e and follow up with her as an outpatient basis. At this point, patient is no longer getting chemoradiation therapy for her metastatic breast cancer. Her prognosis is poor. Patient expressed her wish to continue DNR status while in hospital. She will continue all her previous medication. All new medication prescriptions sent to pharmacy. The patient is seen and examined at bedside today. Please see my progress note from today for furthe r detail. Total time spent on discharge day 31 minutes.
[2017-10-22 13:32] VITALS: BP 118/76; TEMP 98
== END 2017-10-22 13:16 | disposition home or self-care (01) | DRG 542 ==
LOC: ERS 06:42 → T4-A 13:27
PROVIDERS: ADMIT Internal Medicine; ATTEND Internal Medicine
DX: C79.51 Secondary malignant neoplasm of bone (principal); D61.810 Antineoplastic chemotherapy induced pancytopenia; N39.0 Urinary tract infection, site not specified; E87.1 Hypo-osmolality and hyponatremia; E87.2 Acidosis; E44.0 Moderate protein-calorie malnutrition; N13.30 Unspecified hydronephrosis; C79.52 Secondary malignant neoplasm of bone marrow; T45.1X5A Adverse effect of antineoplastic and immunosuppressive drugs, initial encounter; D70.9 Neutropenia, unspecified; D64.9 Anemia, unspecified; C50.919 Malignant neoplasm of unspecified site of unspecified female breast; I10 Essential (primary) hypertension; R31.29 Other microscopic hematuria; M54.30 Sciatica, unspecified side; M47.816 Spondylosis without myelopathy or radiculopathy, lumbar region; Z66 Do not resuscitate; R33.9 Retention of urine, unspecified; E89.0 Postprocedural hypothyroidism; N95.9 Unspecified menopausal and perimenopausal disorder; Z79.899 Other long term (current) drug therapy; Z90.49 Acquired absence of other specified parts of digestive tract
CPT/HCPCS: 36415; 36430; 71045; 71275; 72131; 80048; 80053; 81003; 81015; 83690; 85025; 85379; 86850; 86900; 86901; 87077; 87086; 87186; 93005; 96361; 96374; A4216; G8978-GP-CJ; G8979-GP-CJ; G8980-GP-CJ; G8987-GO-CI; G8988-GO-CI; G8989-GO-CI; J0696; J2270; J7050; P9016; S0179

== ENCOUNTER 2017-10-30 14:21 | Emergency (ER) | payer MEDICARE ==
[2017-10-30] MEDS ORDERED: Ketorolac Tromethamine 30 MG/ML VIAL ONE (14:42)
[2017-10-30 14:52] LABS: Bilirubin Negative (Negative); Blood, Urine Large (Negative); Clarity CLEAR (Clear); Glucose, Urine (Dipstick) Negative (Negative); Leukocyte Negative (Negative); Nitrite Negative (Negative); Protein, Urine (Dipstick) 100 mg/dL (Neg-Trace); Specific Gravity, Urine 1.014 (1.002-1.036); Urobilinogen 0.2 mg/dL (0.2-1.0); pH, Urine 6.5 (5.0-9.0)
[2017-10-30 14:56] LABS: Bacteria/HPF None Seen HPF (None Seen); Pathc Cast-AUWi Flag 5.37 (0-2.49); RBC/HPF 21-50 HPF (0-3); Squamous Epithelial 0-3 HPF (0-3); WBC/HPF 0-3 HPF (0-3)
[2017-10-30 15:07] LABS: Hyaline Casts/LPF NONE SEEN LPF (0-3 Hyaline); Renal Epithelial None Seen HPF (0-3); Transitional Epithelial NONE SEEN HPF (0-3)
[2017-10-30 15:08] LABS: Crystals/HPF 1+ CA OXALATE HPF (Negative); Manual Microscopic Reviewed? No Path Casts Seen
[2017-10-30 15:20] LABS: Hemoglobin 8.7 g/dL (12.0-16.0); Mean Corpuscular HGB CONC 35.5 g/dL (32.0-36.0); Mean Corpuscular Hemoglobin 30.4 pg (27.0-31.0); Mean Corpuscular Volume 85.6 fL (78.0-98.0); Mean Platelet Volume 7.6 fL (7.4-10.4); Platelet Count 25 thou/uL (130-400); RBC Distribution Width 15.1 % (11.5-14.5); Red Blood Cell (RBC) Count 2.85 mill/uL (4.20-5.40)
--- NOTE | 2017-10-30 15:20 | CT ---
HEAD CT NONCONTRAST: INDICATION: Lower extremity weakness, pain. FINDINGS: Small extraaxial hypodense mass of the lateral right frontal region is grossly stable to prior brain MRI, given differences in imaging modalities with a diameter of approximately 13 mm. There is no sig nificant midline shift or ventriculomegaly. Deep white matter hypodensities are present. There is n o acute intracranial hemorrhage. Osseous structures of the calvarium are grossly stable including a focal lucency of the left frontal bone. IMPRESSION: 1. No acute intracranial hemorrhage. 2. Stable extraaxial mass overlying the lateral frontal convexity. 3. Mild white matter ischemic disease. POS: [facility]
[2017-10-30 15:31] LABS: ALT (SGPT) 30 U/L (8-55); AST (SGOT) 68 U/L (5-34); Albumin 3.3 g/dL (3.4-4.8); Alkaline Phosphatase 92 U/L (40-150); Anion Gap 12 mmol/L (10-20); BUN (Urea Nitrogen) 16 mg/dL (9.8-20.1); Bilirubin, Total 0.6 mg/dL (0.2-1.2); Calc. Creatinine Clearance 0 mL/min (70-130); Calcium 9.6 mg/dL (7.8-10.44); Carbon Dioxide 19 mmol/L (23-31); Chloride 102 mmol/L (98-107); Estimated GFR-MDRD 79; Glucose 101 mg/dL (80-115); Protein, Total 8.3 g/dL (6.0-8.3); Sodium 129 mmol/L (136-145)
[2017-10-30 15:41] LABS: #Lymphocytes 0.4 thou/uL (1.20-3.40); #Monocytes 0.1 thou/uL (0.11-0.59); #Neutrophils 0.5 thou/uL (1.40-6.50); %Lymphocytes 42.3 % (21.0-51.0); %Monocytes 6.7 % (0.0-10.0); Anisocytosis SLIGHT = 6-15 cells (100X) (0-5/hpf); MDiff Complete? YES; PLT Morphology Comment Appears Decreased
[2017-10-30] MEDS ORDERED: Ondansetron ODT 8 MG TAB ONE (16:36)
== END 2017-10-30 17:41 | disposition home or self-care (01) ==
LOC: ERS 14:21
DX: R51 Headache (principal); M79.1 Myalgia; C50.919 Malignant neoplasm of unspecified site of unspecified female breast; I10 Essential (primary) hypertension; Z79.899 Other long term (current) drug therapy
CPT/HCPCS: 36415; 70450; 80053; 81003; 81015; 83605; 85025; 87040; 87086; 96374; 96375; J1885; J2270

== ENCOUNTER 2017-11-12 09:53 | Day surgery (SDC) | payer MEDICARE ==
[2017-11-12] MEDS ORDERED: Acetaminophen 500 MG TAB PO SCH (10:30)
[2017-11-12] MEDS ORDERED: diphenhydrAMINE 25 MG CAP PO SCH (10:30)
[2017-11-12 16:09] LABS: Hemoglobin 7.9 g/dL (12.0-16.0)
[2017-11-12 18:50] VITALS: BP 142/67; TEMP 98.4
== END 2017-11-12 18:51 | disposition home or self-care (01) ==
LOC: ONC/OP 09:53
PROVIDERS: ATTEND Internal Medicine Hematology & Oncology
DX: D64.9 Anemia, unspecified (principal); D69.6 Thrombocytopenia, unspecified
CPT/HCPCS: 36415; 36430; 85014; 85018; 86850; 86900; 86901; P9016

== ENCOUNTER 2017-12-03 09:48 | Day surgery (SDC) | payer MEDICARE ==
[2017-12-03] MEDS ORDERED: Acetaminophen 500 MG TAB PO SCH (10:30)
[2017-12-03] MEDS ORDERED: diphenhydrAMINE 25 MG CAP PO SCH (10:30)
[2017-12-03 10:32] VITALS: BMI 23.8
[2017-12-04 03:16] VITALS: BP 134/59; TEMP 98.2
[2017-12-04 04:57] LABS: Hemoglobin 11.6 g/dL (12.0-16.0); Platelet Count 12 thou/uL (130-400)
== END 2017-12-04 07:09 | disposition home or self-care (01) ==
LOC: SDC/OP 09:48 → 2SW 09:50 → SDC/OP 12-04 07:09
PROVIDERS: ATTEND Internal Medicine Hematology & Oncology
DX: D64.9 Anemia, unspecified (principal); D69.6 Thrombocytopenia, unspecified
CPT/HCPCS: 36430; 85014; 85018; 85049; 86850; 86900; 86901; 86920; P9016; 36415; J1642

== ENCOUNTER 2017-12-16 09:41 | Day surgery (SDC) | payer MEDICARE ==
[2017-12-16] MEDS ORDERED: Sodium Chloride 0.9% 30 ML ONE (09:54)
[2017-12-16] MEDS ORDERED: diphenhydrAMINE 25 MG CAP PO SCH (10:00)
[2017-12-16] MEDS ORDERED: Acetaminophen 500 MG TAB PO SCH (10:00)
[2017-12-16 15:10] LABS: Hemoglobin 8.9 g/dL (12.0-16.0)
[2017-12-16 18:24] VITALS: BP 144/65; TEMP 96.9
== END 2017-12-16 18:25 | disposition home or self-care (01) ==
LOC: ONC/OP 09:41
PROVIDERS: ATTEND Internal Medicine Hematology & Oncology
DX: D64.9 Anemia, unspecified (principal); D69.6 Thrombocytopenia, unspecified
CPT/HCPCS: 36415; 36430; 85014; 85018; 86850; 86900; 86901; 96365; 96366; A4216; J1642; P9016

== ENCOUNTER 2018-01-04 09:30 | Day surgery (SDC) | payer MEDICARE ==
[2018-01-04] MEDS ORDERED: diphenhydrAMINE 25 MG CAP PO SCH (11:30)
[2018-01-04] MEDS ORDERED: Acetaminophen 500 MG TAB PO SCH (11:30)
[2018-01-04 13:31] LABS: Hemoglobin 8.1 g/dL (12.0-16.0); Platelet Count 11 thou/uL (130-400)
[2018-01-04 16:43] VITALS: BP 150/71; TEMP 98
== END 2018-01-04 16:44 | disposition home or self-care (01) ==
LOC: ONC/OP 09:30
PROVIDERS: ATTEND Internal Medicine Hematology & Oncology
PROC: 30233R1 Transfusion of Nonautologous Platelets into Peripheral Vein, Percutaneous Approach (ICD-10-PCS; principal; 2018-01-04)
PROC: 30233N1 Transfusion of Nonautologous Red Blood Cells into Peripheral Vein, Percutaneous Approach (ICD-10-PCS; 2018-01-04)
DX: D64.9 Anemia, unspecified (principal); D69.6 Thrombocytopenia, unspecified
CPT/HCPCS: 36430; 85014; 85018; 85049; 86850; 86900; 86901; P9016; P9035

== ENCOUNTER → 2018-01-20 | Day surgery (SDC) | payer MEDICARE ==
[~2018-01-20] MED LIST: Acetaminophen 500 MG TAB PO SCH; Sodium Chloride 0.9% 40 ML ONE; diphenhydrAMINE 25 MG CAP PO SCH
[2018-01-20 13:45] LABS: Platelet Count 18 thou/uL (130-400)
[2018-01-20 16:01] VITALS: BP 136/63; TEMP 98.2
== END ==
LOC: ONC/OP 09:18
PROVIDERS: ATTEND Internal Medicine Medical Oncology
DX: D64.9 Anemia, unspecified (principal); D69.6 Thrombocytopenia, unspecified
CPT/HCPCS: 36430; 85014; 85018; 85049; 86850; 86900; 86901; A4216; J1642; P9016

== ENCOUNTER 2018-02-01 14:25 | Inpatient (IN) | payer MEDICARE ==
[2018-02-01 14:41] VITALS: BMI 24.2
[2018-02-01] MEDS ORDERED: diphenhydrAMINE 25 MG CAP PO SCH (15:00)
[2018-02-01] MEDS ORDERED: Acetaminophen 500 MG TAB PO SCH (15:00)
[2018-02-01 23:28] VITALS: BP 169/69; TEMP 98.1
[2018-02-01 23:28] LABS: Reflex for Review?? YES
[2018-02-01 23:29] LABS: #Eosinphils 0.1 thou/uL (0.0-0.7); #Lymphocytes 0.4 thou/uL (1.20-3.40); #Monocytes 0.1 thou/uL (0.11-0.59); #Neutrophils 0.4 thou/uL (1.40-6.50); %Eosinophils 7.3 % (0.0-10.0); %Lymphocytes 42.8 % (21.0-51.0); %Neutrophils 41.9 % (42.0-75.0); Mean Corpuscular HGB CONC 35.3 g/dL (32.0-36.0); Mean Corpuscular Hemoglobin 30.4 pg (27.0-31.0); Mean Corpuscular Volume 86.1 fL (78.0-98.0); Mean Platelet Volume 9.6 fL (7.4-10.4); Platelet Count 19 thou/uL (130-400); RBC Distribution Width 12.7 % (11.5-14.5); Red Blood Cell (RBC) Count 3.28 mill/uL (4.20-5.40)
== END 2018-02-01 23:21 | disposition home or self-care (01) | DRG 812 ==
LOC: 2SW 14:25
PROVIDERS: ADMIT Internal Medicine Hematology & Oncology; ATTEND Internal Medicine Hematology & Oncology
PROC: 30233N1 Transfusion of Nonautologous Red Blood Cells into Peripheral Vein, Percutaneous Approach (ICD-10-PCS; principal; 2018-02-01)
DX: D64.9 Anemia, unspecified (principal); D69.59 Other secondary thrombocytopenia
CPT/HCPCS: 36430; 85025; 85060; 86850; 86900; 86901; 90471; 90662; G0008; P9016

== ENCOUNTER 2018-02-17 08:38 | Day surgery (SDC) | payer MEDICARE ==
[2018-02-17] MEDS ORDERED: diphenhydrAMINE 25 MG CAP PO SCH (09:00)
[2018-02-17] MEDS ORDERED: Acetaminophen 500 MG TAB PO SCH (09:00)
[2018-02-17] MEDS ORDERED: Sodium Chloride 0.9% 40 ML ONE (09:12)
[2018-02-17 13:31] LABS: Hemoglobin 8.3 g/dL (12.0-16.0)
[2018-02-17 16:50] VITALS: BP 135/64; TEMP 98.1
== END 2018-02-17 16:50 | disposition home or self-care (01) ==
LOC: ONC/OP 08:38
PROVIDERS: ATTEND Internal Medicine Hematology & Oncology
DX: D64.9 Anemia, unspecified (principal); D69.6 Thrombocytopenia, unspecified
CPT/HCPCS: 36430; 85014; 85018; 86850; 86900; 86901; J1642; P9016

== ENCOUNTER 2018-02-20 12:57 | Emergency (ER) | payer MEDICARE ==
[2018-02-20 14:29] LABS: #Lymphocytes 0.5 thou/uL (1.20-3.40); #Monocytes 0.1 thou/uL (0.11-0.59); #Neutrophils 0.6 thou/uL (1.40-6.50); %Eosinophils 0.8 % (0.0-10.0); %Lymphocytes 37.8 % (21.0-51.0); %Monocytes 10.1 % (0.0-10.0); %Neutrophils 51.3 % (42.0-75.0); Hemoglobin 9.7 g/dL (12.0-16.0); Mean Corpuscular HGB CONC 34.3 g/dL (32.0-36.0); Mean Corpuscular Volume 87.6 fL (78.0-98.0); Mean Platelet Volume 8.1 fL (7.4-10.4); Platelet Count 15 thou/uL (130-400); RBC Distribution Width 12.9 % (11.5-14.5); Red Blood Cell (RBC) Count 3.24 mill/uL (4.20-5.40); White Blood Cell (WBC) Count 1.3 thou/uL (4.8-10.8)
--- NOTE | 2018-02-20 14:29 | RAD ---
ABDOMINAL SURVEY WITH UPRIGHT CHEST AND 2 VIEW ABDOMEN: Date: 02/20/18 INDICATION: Abdominal pain. FINDINGS: Lungs appear clear. A MediPort catheter is in position via the left subclavian vein. Two views of the abdomen show unremarkable bowel gas pattern. There is scattered stool and gas in the colon with stool in the rectum. Nonspecific small bowel gas is seen without small bowel dilatation. IMPRESSION: Mild increased small bowel gas without small bowel dilatation or obstruction. Findings may represent enteritis or other nonspecific etiology. POS: [facility]
[2018-02-20 14:34] LABS: Anion Gap 11 mmol/L (10-20); BUN (Urea Nitrogen) 13 mg/dL (9.8-20.1); Calc. Creatinine Clearance 0 mL/min (70-130); Calcium 9.8 mg/dL (7.8-10.44); Carbon Dioxide 20 mmol/L (23-31); Chloride 106 mmol/L (98-107); Estimated GFR-MDRD 84; Glucose 132 mg/dL (80-115); Sodium 133 mmol/L (136-145)
== END 2018-02-20 15:09 | disposition home or self-care (01) ==
LOC: ERS 12:57
DX: K59.00 Constipation, unspecified (principal); I10 Essential (primary) hypertension
CPT/HCPCS: 36415; 74022; 80048; 85025; 96360

== ENCOUNTER 2018-02-24 16:04 | Inpatient (IN) | payer MEDICARE ==
[2018-02-24 16:52] LABS: Hemoglobin 9.1 g/dL (12.0-16.0); Mean Corpuscular HGB CONC 35.2 g/dL (32.0-36.0); Mean Corpuscular Hemoglobin 29.7 pg (27.0-31.0); Mean Corpuscular Volume 84.5 fL (78.0-98.0); Mean Platelet Volume 9.1 fL (7.4-10.4); Platelet Count 14 thou/uL (130-400); RBC Distribution Width 12.4 % (11.5-14.5); Red Blood Cell (RBC) Count 3.06 mill/uL (4.20-5.40); White Blood Cell (WBC) Count 1.4 thou/uL (4.8-10.8)
[2018-02-24 17:13] LABS: ALT (SGPT) 56 U/L (8-55); AST (SGOT) 159 U/L (5-34); Albumin 3.3 g/dL (3.4-4.8); Alkaline Phosphatase 103 U/L (40-150); Anion Gap 10 mmol/L (10-20); BUN (Urea Nitrogen) 17 mg/dL (9.8-20.1); Bilirubin, Total 0.5 mg/dL (0.2-1.2); CK (CPK) 530 U/L (29-168); Calc. Creatinine Clearance 0 mL/min (70-130); Carbon Dioxide 30 mmol/L (23-31); Chloride 98 mmol/L (98-107); Estimated GFR-MDRD 66; Glucose 137 mg/dL (80-115); Potassium 3.6 mmol/L (3.5-5.1); Protein, Total 9.3 g/dL (6.0-8.3); Sodium 134 mmol/L (136-145)
[2018-02-24 17:17] LABS: Bilirubin Negative (Negative); Blood, Urine Negative (Negative); Clarity CLEAR (Clear); Glucose, Urine (Dipstick) Negative (Negative); Leukocyte Negative (Negative); Nitrite Negative (Negative); Protein, Urine (Dipstick) Trace mg/dL (Neg-Trace); Specific Gravity, Urine 1.013 (1.002-1.036); Urobilinogen 0.2 mg/dL (0.2-1.0)
[2018-02-24 17:18] LABS: CKMB 0.6 ng/mL (0-6.6); Troponin I Less than 0.010 ng/mL (< 0.028)
[2018-02-24 17:22] LABS: Band 11 % (5-11); Calcium 13.3 mg/dL (7.8-10.44); Lymphocytes 39 % (21-51); MDiff Complete? YES; Metamyelocyte 2 % (0-0); Monocytes 9 % (0-10); Neutrophil 36 % (42-75); PLT Morphology Comment Appears Decreased; Polychromasia SLIGHT = 2-3 cells (100X) (0-2/hpf); Reactive Lymphocytes 2 % (0-10)
[2018-02-24] MEDS ORDERED: Dexamethasone 10 MG/ML VIAL ONE (17:29)
--- NOTE | 2018-02-24 18:00 | CT ---
CT OF THE BRAIN WITHOUT CONTRAST: 02/24/18 COMPARISON: 10/30/17 HISTORY: Fall. Patient was found down. TECHNIQUE: Multiple contiguous axial images were obtained in a CT of the brain without contrast. FINDINGS: There is a 3.6 cm mass along the right frontal convexity. This has increased in size compared to the prior examination. There is adjacent hypodensity which may represent edema. No midline shift, or down fontaine herniation is seen. There is no evidence of hydrocephalus, intracranial hemorrhage or extra-axia l fluid collection. The calvarium and overlying soft tissues are unremarkable. The visualized paranasal sinuses and masto id air cells are well aerated. IMPRESSION: Enlarging right frontal convexity mass. POS: [facility]
[2018-02-24] MEDS ORDERED: Zoledronic Acid 4 MG in Sodium Chloride 0.9% 100 ML IVPB SCH (18:15)
--- NOTE | 2018-02-24 18:16 | CT ---
CT CERVICAL SPINE WITH CORONAL AND SAGITTAL REFORMATIONS: 02/24/18 HISTORY: Trauma, fall, neck pain. FINDINGS/IMPRESSION: The bones demonstrate changes of metastatic disease. No acute fracture or subluxation is seen. No fac et malalignment is noted. POS: [facility]
--- NOTE | 2018-02-24 20:11 | RAD ---
FOUR VIEWS OF THE LEFT KNEE: 02/24/18 HISTORY: Fall. Pain. Trauma. FINDINGS: No joint effusion. Joint spaces are preserved. No fracture or malalignment. Vascular calcifications a re noted. IMPRESSION: No posttraumatic change. POS: [facility]
--- NOTE | 2018-02-24 20:12 | RAD ---
FOUR VIEWS RIGHT KNEE: 02/24/18 HISTORY: Pain, trauma. FINDINGS: No joint effusion. Joint spaces are preserved. No fracture or malalignment. Vascular calcifications a re noted. IMPRESSION: No posttraumatic changes. POS: [facility]
[2018-02-24] MEDS ORDERED: Ondansetron ODT 4 MG TAB SL PRN (21:33)
[2018-02-24] MEDS ORDERED: Acetaminophen 325 MG TAB PO PRN (21:33)
[2018-02-24] MEDS ORDERED: Ondansetron PF 4 MG/2 ML Vial IVP PRN (21:33)
[2018-02-25 04:38] VITALS: BMI 23.3
[2018-02-25 05:17] LABS: Hemoglobin 8.8 g/dL (12.0-16.0); Mean Corpuscular HGB CONC 33.7 g/dL (32.0-36.0); Mean Corpuscular Hemoglobin 29.2 pg (27.0-31.0); Mean Corpuscular Volume 86.8 fL (78.0-98.0); Mean Platelet Volume 8.6 fL (7.4-10.4); Platelet Count 20 thou/uL (130-400); RBC Distribution Width 12.6 % (11.5-14.5); Red Blood Cell (RBC) Count 3.01 mill/uL (4.20-5.40); White Blood Cell (WBC) Count 1.4 thou/uL (4.8-10.8)
[2018-02-25 05:28] LABS: Anion Gap 11 mmol/L (10-20); BUN (Urea Nitrogen) 18 mg/dL (9.8-20.1); Calc. Creatinine Clearance 70 mL/min (70-130); Carbon Dioxide 25 mmol/L (23-31); Chloride 101 mmol/L (98-107); Estimated GFR-MDRD 76; Glucose 135 mg/dL (80-115); Potassium 3.5 mmol/L (3.5-5.1); Sodium 133 mmol/L (136-145)
[2018-02-25 05:30] LABS: Calcium 13.6 mg/dL (7.8-10.44)
[2018-02-25 05:52] LABS: Hypochromia SLIGHT = 6-15 cells (100X) (0-5/hpf); Lymphocytes 60 % (21-51); MDiff Complete? YES; Neutrophil 40 % (42-75); PLT Morphology Comment Appears Decreased; Polychromasia SLIGHT = 2-3 cells (100X) (0-2/hpf)
--- NOTE | 2018-02-25 07:41 | HP ---
CHIEF COMPLAINT: Status post fall and right eye blindness. HISTORY OF PRESENT ILLNESS: This is a 72-year-old female with a past medical history of metastatic breast cancer presenting with status post fall after the patient states that she tripped and fell when she was using her walker around 2: 00 p.m. on the day of admission. The patient stated that she felt dizzy prior to falling. She felt very weak and patient fell due to the weakness and dizziness and patient states that she hit her head, but she does not have any pain on her left side even though the patient states that she fell on her left side. Per the patient, she has not been very sharp lately since she has become little bit confused every now and then and she has been losing focus. The patient denies any fever, but states that she has some dull pain on her left side, especially around her knee. 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 Otherwise, as documented in the HPI, all other systems were reviewed and are negative. PAST MEDICAL HISTORY: Hypertension, history of diverticulitis, right breast cancer diagnosed in 12/2012, status post chemoradiation on 07/2017. Thyroid cancer. PAST SURGICAL HISTORY: Thyroidectomy, knee surgery, hip surgery x2, cholecystectomy. FAMILY HISTORY: Reviewed and are negative. PSYCHIATRIC HISTORY: No previous psych history noted. SOCIAL HISTORY: The patient denies any illicit drug use. The patient denies any alcohol use. The patient denies any smoking history. ALLERGIES: No known drug allergies. CURRENT MEDICATIONS: Levothyroxine 125 mcg. PHYSICAL EXAMINATION: VITAL SIGNS: Blood pressure is 137/86, pulse of 90, respiratory rate of 16, temperature of 98.3. GENERAL: The patient is sitting in bed, has closed the right eye. States that she does want to open her right eye. She is not able to see from the right eye. Otherwise, the patient is able to speak fully, alert and oriented. Patient gets confused in between conversations. HEENT: Normocephalic, atraumatic. Pupils are equally round and reactive to light in the left eye. The right eye is very sluggish, pupil is dilated, deviated to the downward deviation and out. Mucous membranes are moist. NECK: Supple, nontender, full range of motion. Trachea is midline. LUNGS: Clear to auscultation bilaterally. No wheezing, no rales, no rhonchi is appreciated. CARDIOVASCULAR: Positive S1, S2, regular rate and rhythm. ABDOMEN: Soft, nontender, nondistended. Positive bowel sounds in all quadrants. Obese abdomen. EXTREMITIES: Patient has 5/5 upper extremity strength with good pulses and positive lower extremities strength with good pulses. No edema noted. NEUROLOGIC: The patient's right eye is closed. The patient does not want to open the right eye. With pen light the patient's eye is mildly dilated and it deviated down and out. SKIN: Warm, dry and intact. IMAGING: EKG showed a normal sinus rhythm with a rate of 91. CT scan of the head showed enlarging frontal, parietal mass with edema around the area. The frontal mass is a 3.6 cm mass. Cervical spine imaging showed the bones demonstrate changes of metastatic disease. No acute fracture or subluxation seen. Knee x-ray showed no posttraumatic changes. LABORATORY DATA: WBC is 1.4, hemoglobin is 9.1, platelet count is 14. Sodium is 134, potassium is 3.6, chloride is 98, carbon dioxide 30, BUN is 17, creatinine is 0.85, GFR 66. Calcium is 13.3. AST 159, ALT 56, alkaline phosphatase 103. Creatinine kinase is ____. Troponin is less than 0.010. ASSESSMENT AND PLAN: 1. This is a 72-year-old female with past medical history of metastatic cancer being admitted for status post fall due to generalized weakness and dizziness. At this point, we have consulted palliative care to talk to the patient regarding goals of care. The patient has metastatic bone cancer and patient also has a mass that has been seen on CT scan of the brain. At this point, we will just conservatively manage the patient. 2. Pancytopenia. We will conservatively manage the patient at this time. We will continue current management. Patient's oncologist has been consulted. We will follow up with their recommendation. 3. Metastatic bone cancer. Patient's oncologist has been consulted. We will follow up with his recommendation. 4. Hypercalcemia, most likely due to metastatic cancer. We will continue supportive care. 5. Deep venous thrombosis and gastrointestinal prophylaxis. We will do SCDs and will do proton pump inhibitors. MTDD
[2018-02-25] MEDS: Levothyroxine Sodium 125 MCG TAB PO SCH (08:35)
[2018-02-25] MEDS: Potassium Chloride 10 MEQ TAB PO SCH (11:22)
[2018-02-25] MEDS: Lisinopril 10 MG TAB PO SCH (11:23)
[2018-02-25] MEDS: Amlodipine 5 MG TAB PO SCH (11:23)
[2018-02-25] MEDS: Sodium Chloride 0.9% 1,000 ML IV SCH ×2 (11:41→17:28)
--- NOTE | 2018-02-25 13:31 | PDOC.PN ---
- Subjective Encounter Start Date: 02/25/18 Encounter Start Time: 10:30 Patient denies any specific complaints. Denies pain. - Objective Resuscitation Status: Resuscitation Status DNR:Do Not Resuscitate Vital Signs & Weight: Vital Signs (12 hours) Temp Pulse Resp BP BP Pulse Ox 02/25/18 12:00 98.7 F 76 16 152/67 H 96 02/25/18 11:23 78 165/73 H 02/25/18 08:00 97.5 F L 78 16 165/73 H 91 L 02/25/18 04:00 97.5 F L 75 18 165/69 H 99 Weight Weight 139 lb 15.896 oz Result Diagrams: 02/25/18 04:41 02/25/18 04:41 Phys Exam - Physical Examination Constitutional: NAD Somnolent. Does arouse, but quickly doses. Right eyelid a bitter stuck, but opened with assistance. Neck: no nodes Respiratory: no wheezing, no rales, no rhonchi Cardiovascular: RRR, no significant murmur Gastrointestinal: soft, non-tender, no distention, positive bowel sounds Musculoskeletal: no edema Neurological: non-focal Somnolent Skin: no rash Deviation from normal: Several superficial bruises. Dx/Plan (1) Hypercalcemia Code(s): E83.52 - HYPERCALCEMIA Status: Acute Comment: Secondary to multiple bone mets. Fluids, diuresis, decadron, zometa, calcitonin. (2) Metabolic encephalopathy Code(s): G93.41 - METABOLIC ENCEPHALOPATHY Status: Acute Comment: Has enlarging brain met and hypercalcemia. Treat the hypercalcemia and check with onc to see if there are any treatment options still available. (3) Hypertension Code(s): I10 - ESSENTIAL (PRIMARY) HYPERTENSION Status: Chronic (4) Hypothyroidism Code(s): E03.9 - HYPOTHYROIDISM, UNSPECIFIED Status: Chronic (5) Metastatic breast carcinoma Code(s): C50.919 - MALIGNANT NEOPLASM OF UNSP SITE OF UNSPECIFIED FEMALE BREAST Status: Chronic Comment: Multiple mets to bone and brain. May be in a palliative care situation. (6) Pancytopenia Code(s): D61.818 - OTHER PANCYTOPENIA Status: Chronic Comment: Continue to monitor. Unclear if she has been receiving any chemotherapy. (7) Fall Code(s): W19.XXXA - UNSPECIFIED FALL, INITIAL ENCOUNTER Status: Acute Comment: No evidence of significant injury. - Plan * Continue to treat the hypercalcemia and see if the encephalopathy with improve.
--- NOTE | 2018-02-25 13:46 | PDOC.EVN ---
Event Note - Event Note Event Note: Discussed with Dr. Nair. The brain lesion is actually a new finding although there may have been some modest indication that it was present before. The pancytopenia is due to bone marrow invasion by the tumor and is chronic. She has been getting transfusions, but not really followed up in clinic for several months. The discussion about Hospice did happen with Dr. Nair a couple of months ago, but she was not terribly interested in it at that time. Dr. Nair will discuss with Dr. Dean to see if there may be an option for some palliative radiation to the brain lesion. There really are no good treatment options left other than possibly Zyloda orally. Will continue to aggressive work on lowering the calcium.
[2018-02-25] MEDS: Calcitonin,Salmon,Synthetic 200 Units 3.7 ML PUMP L NARE SCH (14:43)
[2018-02-25] MEDS ORDERED: Furosemide 20 MG/2 ML VIAL SLOW IVP SCH (15:00)
[2018-02-25] MEDS: Dexamethasone 4 MG TAB PO SCH ×2 (17:26→22:06)
[2018-02-26] MEDS: Sodium Chloride 0.9% 1,000 ML IV SCH ×4 (01:53→23:12)
[2018-02-26] MEDS: Levothyroxine Sodium 125 MCG TAB PO SCH (06:09)
[2018-02-26] MEDS: Dexamethasone 4 MG TAB PO SCH ×4 (06:09→23:13)
[2018-02-26 06:33] LABS: #Lymphocytes 0.6 thou/uL (1.20-3.40); #Monocytes 0.1 thou/uL (0.11-0.59); #Neutrophils 0.8 thou/uL (1.40-6.50); %Eosinophils 0.8 % (0.0-10.0); %Lymphocytes 40.7 % (21.0-51.0); %Neutrophils 50.5 % (42.0-75.0); Hemoglobin 8.3 g/dL (12.0-16.0); Mean Corpuscular Hemoglobin 29.3 pg (27.0-31.0); Mean Corpuscular Volume 86.1 fL (78.0-98.0); Mean Platelet Volume 8.8 fL (7.4-10.4); Platelet Count 16 thou/uL (130-400); RBC Distribution Width 12.6 % (11.5-14.5); Red Blood Cell (RBC) Count 2.82 mill/uL (4.20-5.40); White Blood Cell (WBC) Count 1.5 thou/uL (4.8-10.8)
[2018-02-26 06:43] LABS: ALT (SGPT) 62 U/L (8-55); AST (SGOT) 116 U/L (5-34); Alkaline Phosphatase 89 U/L (40-150); Anion Gap 11 mmol/L (10-20); BUN (Urea Nitrogen) 20 mg/dL (9.8-20.1); Bilirubin, Total 0.4 mg/dL (0.2-1.2); Calc. Creatinine Clearance 68 mL/min (70-130); Carbon Dioxide 25 mmol/L (23-31); Chloride 106 mmol/L (98-107); Estimated GFR-MDRD 74; Globulin 5.5 g/dL (2.4-3.5); Glucose 161 mg/dL (80-115); Potassium 3.4 mmol/L (3.5-5.1); Protein, Total 8.5 g/dL (6.0-8.3); Sodium 139 mmol/L (136-145)
[2018-02-26 06:48] LABS: Calcium 12.3 mg/dL (7.8-10.44)
[2018-02-26] MEDS: Lisinopril 10 MG TAB PO SCH (09:42)
[2018-02-26] MEDS: Potassium Chloride 10 MEQ TAB PO SCH (09:42)
[2018-02-26] MEDS: Amlodipine 5 MG TAB PO SCH (09:43)
--- NOTE | 2018-02-26 11:07 | PDOC.PN ---
- Subjective Encounter Start Date: 02/26/18 Encounter Start Time: 11:06 Denies specific complaints other than having some problems remembering today. Does not believe it was a problem yesterday. - Objective Resuscitation Status: Resuscitation Status DNR:Do Not Resuscitate Vital Signs & Weight: Vital Signs (12 hours) Temp Pulse Resp BP Pulse Ox 02/26/18 09:43 84 02/26/18 07:39 95 02/26/18 07:38 97.8 F 84 18 134/72 95 Weight Weight 139 lb 15.896 oz I&O: 02/25/18 02/26/18 02/27/18 06:59 06:59 05:59 Intake Total 1800 Balance 1800 Result Diagrams: 02/26/18 06:15 02/26/18 06:15 Phys Exam - Physical Examination Constitutional: NAD Right ptosis Respiratory: no wheezing, no rales, no rhonchi Cardiovascular: RRR, no significant murmur Gastrointestinal: soft, non-tender, no distention, positive bowel sounds Musculoskeletal: no edema Modestly conversant. Less encephalopathic, but still altered Dx/Plan (1) Hypercalcemia Code(s): E83.52 - HYPERCALCEMIA Status: Acute Comment: Secondary to multiple bone mets. Fluids, diuresis, decadron, zometa, calcitonin. Improving. Recheck tomorrow. (2) Metabolic encephalopathy Code(s): G93.41 - METABOLIC ENCEPHALOPATHY Status: Acute Comment: Has enlarging brain met and hypercalcemia. Treat the hypercalcemia. Seems to be better with current treatment, but still present. (3) Hypertension Code(s): I10 - ESSENTIAL (PRIMARY) HYPERTENSION Status: Chronic (4) Hypothyroidism Code(s): E03.9 - HYPOTHYROIDISM, UNSPECIFIED Status: Chronic (5) Metastatic breast carcinoma Code(s): C50.919 - MALIGNANT NEOPLASM OF UNSP SITE OF UNSPECIFIED FEMALE BREAST Status: Chronic Comment: Multiple mets to bone and brain. Suspect liver as well. May be in a palliative care situation. Tried to talk with patient about this. She does not recall the conversation with Dr. Nair previously held. Palliative care did meet with her. Patient says she is not close with her children and they are not involved in her life. Too encephalopathic to have detailed conversation. (6) Pancytopenia Code(s): D61.818 - OTHER PANCYTOPENIA Status: Chronic Comment: Continue to monitor. Due to bone marrow invasion by the cancer. Severe thrombocytopenia, but not bleeding. Will continue to monitor. (7) Fall Code(s): W19.XXXA - UNSPECIFIED FALL, INITIAL ENCOUNTER Status: Acute Comment: No evidence of significant injury. Initial CT did not reveal any evidence of bleed. At risk because of low platelets. No evidence of new neurologic deficits to warrant repeat scan. - Plan * Continue to treat the calcium. Hope her mentation will continue to improve. * Clearly end-stage disease and high risk for infection, bleeding, seizures, pathologic fractures, etc. Continue Palliative Care Team support.
[2018-02-27 05:24] LABS: #Lymphocytes 0.5 thou/uL (1.20-3.40); #Monocytes 0.1 thou/uL (0.11-0.59); #Neutrophils 0.8 thou/uL (1.40-6.50); %Eosinophils 0.3 % (0.0-10.0); %Lymphocytes 36.1 % (21.0-51.0); %Monocytes 9.6 % (0.0-10.0); Hemoglobin 6.7 g/dL (12.0-16.0); Mean Corpuscular HGB CONC 34.6 g/dL (32.0-36.0); Mean Corpuscular Hemoglobin 29.6 pg (27.0-31.0); Mean Corpuscular Volume 85.6 fL (78.0-98.0); Mean Platelet Volume 6.8 fL (7.4-10.4); Platelet Count 58 thou/uL (130-400); RBC Distribution Width 12.5 % (11.5-14.5); Red Blood Cell (RBC) Count 2.26 mill/uL (4.20-5.40); White Blood Cell (WBC) Count 1.5 thou/uL (4.8-10.8)
[2018-02-27 05:37] LABS: ALT (SGPT) 59 U/L (8-55); AST (SGOT) 97 U/L (5-34); Albumin 2.9 g/dL (3.4-4.8); Alkaline Phosphatase 82 U/L (40-150); Anion Gap 8 mmol/L (10-20); BUN (Urea Nitrogen) 18 mg/dL (9.8-20.1); Bilirubin, Total 0.2 mg/dL (0.2-1.2); Calc. Creatinine Clearance 76 mL/min (70-130); Calcium 10.8 mg/dL (7.8-10.44); Carbon Dioxide 24 mmol/L (23-31); Chloride 107 mmol/L (98-107); Estimated GFR-MDRD 84; Globulin 4.9 g/dL (2.4-3.5); Glucose 128 mg/dL (80-115); Potassium 3.1 mmol/L (3.5-5.1); Protein, Total 7.8 g/dL (6.0-8.3); Sodium 136 mmol/L (136-145)
[2018-02-27] MEDS: Dexamethasone 4 MG TAB PO SCH ×4 (06:00→23:43)
[2018-02-27] MEDS: Levothyroxine Sodium 125 MCG TAB PO SCH (06:00)
[2018-02-27] MEDS: Sodium Chloride 0.9% 1,000 ML IV SCH ×3 (06:11→19:51)
[2018-02-27] MEDS ORDERED: Potassium Chloride 20 MEQ TAB PO SCH (07:45)
[2018-02-27] MEDS: Amlodipine 5 MG TAB PO SCH (08:35)
[2018-02-27] MEDS: Lisinopril 10 MG TAB PO SCH (08:36)
[2018-02-27] MEDS: Potassium Chloride 10 MEQ TAB PO SCH (08:36)
--- NOTE | 2018-02-27 08:54 | PDOC.PN ---
- Subjective Encounter Start Date: 02/27/18 Encounter Start Time: 08:52 Doing better today. No complaints. Did spill some coffee and has small resendiz on chest. Had epistaxis last night. - Objective Resuscitation Status: Resuscitation Status DNR:Do Not Resuscitate Vital Signs & Weight: Vital Signs (12 hours) Temp Pulse Resp BP BP Pulse Ox 02/27/18 08:36 149/69 H 02/27/18 08:35 76 149/69 H 02/27/18 08:00 97.4 F L 76 24 H 149/69 H 97 Weight Weight 139 lb 15.896 oz I&O: 02/26/18 02/27/18 02/28/18 07:59 06:59 06:59 Intake Total Balance Result Diagrams: 02/27/18 05:10 02/27/18 05:10 Phys Exam - Physical Examination Constitutional: NAD More awake and conversant. A little more hearing deficit than I originally appreciated. Respiratory: no wheezing, no rales, no rhonchi, clear to auscultation bilateral Cardiovascular: RRR, no significant murmur, no rub Gastrointestinal: soft, non-tender, no distention, positive bowel sounds Musculoskeletal: no edema Psychiatric: normal affect Deviation from normal: Recalls the fall and our conversation from yesterday. Deviation from normal: three 1 cm circular blisters on chest. Dx/Plan (1) Hypercalcemia Code(s): E83.52 - HYPERCALCEMIA Status: Acute Comment: Secondary to multiple bone mets. Fluids, diuresis, decadron, zometa, calcitonin. Improving. Recheck tomorrow. (2) Metabolic encephalopathy Code(s): G93.41 - METABOLIC ENCEPHALOPATHY Status: Acute Comment: Has enlarging brain met and hypercalcemia. Treat the hypercalcemia. Seems to be much better with current treatment. (3) Hypertension Code(s): I10 - ESSENTIAL (PRIMARY) HYPERTENSION Status: Chronic (4) Hypothyroidism Code(s): E03.9 - HYPOTHYROIDISM, UNSPECIFIED Status: Chronic (5) Metastatic breast carcinoma Code(s): C50.919 - MALIGNANT NEOPLASM OF UNSP SITE OF UNSPECIFIED FEMALE BREAST Status: Chronic Comment: Multiple mets to bone and brain. Suspect liver as well. May be in a palliative care situation. Talked with patient about this. She does understand that she is has incurable disease. Palliative care did meet with her. (6) Pancytopenia Code(s): D61.818 - OTHER PANCYTOPENIA Status: Chronic Comment: Continue to monitor. Due to bone marrow invasion by the cancer. Severe thrombocytopenia. Epistaxis last night. Transfused platelets. Continue to monitor. (7) Fall Code(s): W19.XXXA - UNSPECIFIED FALL, INITIAL ENCOUNTER Status: Acute Comment: No evidence of significant injury. Initial CT did not reveal any evidence of bleed. At risk because of low platelets. No evidence of new neurologic deficits to warrant repeat scan. (8) Epistaxis Code(s): R04.0 - EPISTAXIS Status: Acute Comment: Secondary to thrombocytopenia. Resolved. (9) Second degree burn of chest wall Code(s): T21.21XA - BURN OF SECOND DEGREE OF CHEST WALL, INITIAL ENCOUNTER Status: Acute Comment: Minimal. No treatment indicated now. Continue to monitor. - Plan * Long discussion with the patient regarding her disease and prognosis. She does confirm that her "boyfriend" is in fact her common law and would be her surrogate decision maker. She lives with him and he works. She would be at home by herself much of the time. She has home health once weekly now. Concerned about her ability to function at home alone. High risk for infection , bleeds, pathologic fractures, seizures, etc. She expressed understanding. PT eval and case management consult tomorrow.
[2018-02-27] MEDS ORDERED: Lisinopril 10 MG TAB PO SCH (15:00)
[2018-02-27] MEDS: Calcitonin,Salmon,Synthetic 200 Units 3.7 ML PUMP L NARE SCH (15:22)
[2018-02-28 05:23] LABS: #Lymphocytes 0.6 thou/uL (1.20-3.40); #Monocytes 0.2 thou/uL (0.11-0.59); #Neutrophils 1.2 thou/uL (1.40-6.50); %Eosinophils 0.4 % (0.0-10.0); %Lymphocytes 32.1 % (21.0-51.0); %Monocytes 9.9 % (0.0-10.0); %Neutrophils 57.6 % (42.0-75.0); Hemoglobin 9.6 g/dL (12.0-16.0); Mean Corpuscular HGB CONC 33.6 g/dL (32.0-36.0); Mean Corpuscular Hemoglobin 28.9 pg (27.0-31.0); Mean Corpuscular Volume 86.1 fL (78.0-98.0); Mean Platelet Volume 7.7 fL (7.4-10.4); Platelet Count 51 thou/uL (130-400); RBC Distribution Width 12.9 % (11.5-14.5)
[2018-02-28] MEDS: Levothyroxine Sodium 125 MCG TAB PO SCH (05:26)
[2018-02-28] MEDS: Dexamethasone 4 MG TAB PO SCH ×4 (05:26→22:47)
[2018-02-28 05:35] LABS: ALT (SGPT) 86 U/L (8-55); AST (SGOT) 107 U/L (5-34); Albumin 3.1 g/dL (3.4-4.8); Alkaline Phosphatase 88 U/L (40-150); Anion Gap 10 mmol/L (10-20); BUN (Urea Nitrogen) 17 mg/dL (9.8-20.1); Bilirubin, Total 0.4 mg/dL (0.2-1.2); Calc. Creatinine Clearance 72 mL/min (70-130); Calcium 10.4 mg/dL (7.8-10.44); Carbon Dioxide 25 mmol/L (23-31); Chloride 106 mmol/L (98-107); Estimated GFR-MDRD 79; Globulin 5.1 g/dL (2.4-3.5); Glucose 163 mg/dL (80-115); Potassium 3.5 mmol/L (3.5-5.1); Protein, Total 8.2 g/dL (6.0-8.3); Sodium 137 mmol/L (136-145)
--- NOTE | 2018-02-28 05:56 | PDOC.EVN ---
Event Note - Event Note Event Note: RN called - Pt fell. Will get CT brain non contrast
--- NOTE | 2018-02-28 09:29 | CT ---
CT BRAIN PERFORMED WITHOUT CONTRAST ENHANCEMENT: History: Right breast cancer with brain metastases. Patient status post fall. Comparison: 02-24-18, 10-30-17 FINDINGS: The ventricular and cisternal system shows what appear to be some fairly age appropriate change. Ther e is a stable appearance to a higher attenuation extraaxial frontal convexity mass with some associat ed edema which measures in the 3.5 cm range. Directly anterior to this there is also what appears to be a dural based lesion present which in retrospect, is seen on the previous examination. It is of mu ch smaller density. It is not present on the 10-30-17 study and probably represents another dural based mass. There is at least possibly one other area which is also over the right frontal convexity midli ne towards the falx. There is some questionable findings over the left frontal convexity. These proba elisa represent dural based metastases. MRI would be helpful in better assessment. IMPRESSION: 1. No evidence of any acute injury related to patient's fall. 2. Dural based mass lesions which I believe are multiple and very suspicious for dural based metastas es. If indicated, the full extent of these would be better investigated with MRI. POS: [facility]
[2018-02-28] MEDS: Amlodipine 5 MG TAB PO SCH (09:42)
[2018-02-28] MEDS: Potassium Chloride 10 MEQ TAB PO SCH (09:42)
[2018-02-28] MEDS: Lisinopril 10 MG TAB PO SCH (09:43)
[2018-02-28] MEDS: Famotidine 20 MG TAB PO SCH ×2 (09:43→22:47)
[2018-02-28] MEDS: hydrALAZINE 20 MG/ML VIAL SLOW IVP PRN (14:00)
[2018-02-28] MEDS ORDERED: Mag-Al 1200 mg/1200 mg/30 ML UDCUP PO SCH (16:45)
--- NOTE | 2018-02-28 20:53 | PDOC.PN ---
- Subjective Encounter Start Date: 02/28/18 Encounter Start Time: 09:00 Had a fall this morning. Feels ok now. No injuries. - Objective Resuscitation Status: Resuscitation Status DNR:Do Not Resuscitate Vital Signs & Weight: Vital Signs (12 hours) Temp Pulse Pulse Resp BP BP BP 02/28/18 19:40 02/28/18 19:11 98.4 F 75 20 148/65 H 02/28/18 14:00 72 195/75 H 02/28/18 13:30 136/62 02/28/18 13:00 97.7 F 77 20 02/28/18 10:35 73 174/79 H 02/28/18 09:43 157/70 H 02/28/18 09:42 71 157/70 H BP Pulse Ox 02/28/18 19:40 98 02/28/18 19:11 98 02/28/18 14:00 02/28/18 13:30 72 L 02/28/18 13:00 195/75 H 100 02/28/18 10:35 02/28/18 09:43 02/28/18 09:42 Weight Weight 139 lb 15.896 oz I&O: 02/27/18 02/28/18 03/01/18 06:59 06:59 06:59 Intake Total 1650 1000 Balance 1650 1000 Result Diagrams: 02/28/18 04:58 02/28/18 04:58 Phys Exam - Physical Examination Constitutional: NAD Right eye ptosis. Dilated right pupil. Respiratory: no wheezing, no rales, no rhonchi, clear to auscultation bilateral Cardiovascular: RRR, no significant murmur Gastrointestinal: soft, non-tender, no distention, positive bowel sounds Musculoskeletal: no edema Dx/Plan (1) Hypercalcemia Code(s): E83.52 - HYPERCALCEMIA Status: Acute Comment: Secondary to multiple bone mets. Fluids, diuresis, decadron, zometa, calcitonin. Normalized. Recheck tomorrow. (2) Metabolic encephalopathy Code(s): G93.41 - METABOLIC ENCEPHALOPATHY Status: Acute Comment: Has enlarging brain met and hypercalcemia. Treat the hypercalcemia. Seems to be much better with current treatment. (3) Hypertension Code(s): I10 - ESSENTIAL (PRIMARY) HYPERTENSION Status: Chronic (4) Hypothyroidism Code(s): E03.9 - HYPOTHYROIDISM, UNSPECIFIED Status: Chronic Comment: Stable (5) Metastatic breast carcinoma Code(s): C50.919 - MALIGNANT NEOPLASM OF UNSP SITE OF UNSPECIFIED FEMALE BREAST Status: Chronic Comment: Multiple mets to bone and brain. Suspect liver as well. May be in a palliative care situation. Talked with patient about this. She does understand that she is has incurable disease. Palliative care did meet with her. (6) Pancytopenia Code(s): D61.818 - OTHER PANCYTOPENIA Status: Chronic Comment: Continue to monitor. Due to bone marrow invasion by the cancer. Improved after transfusion. Continue to monitor. (7) Fall Code(s): W19.XXXA - UNSPECIFIED FALL, INITIAL ENCOUNTER Status: Acute Comment: Fell again this morning. Less encephalopathy than neurologic deficits. Will need to work on disposition. (8) Epistaxis Code(s): R04.0 - EPISTAXIS Status: Acute Comment: Secondary to thrombocytopenia. Resolved. (9) Second degree burn of chest wall Code(s): T21.21XA - BURN OF SECOND DEGREE OF CHEST WALL, INITIAL ENCOUNTER Status: Acute Comment: Minimal. No treatment indicated now. Continue to monitor. - Plan * I think she is stable for discharge, but with the fall this morning, need to establish a safe discharge plan. Discussed the terminal nature of her cancer. She is ok with talking to Hospice today. She is thinking about hiring her sister in law to stay with her during the day. will be home nights and evening.
[2018-03-01] MEDS: Levothyroxine Sodium 125 MCG TAB PO SCH (05:14)
[2018-03-01] MEDS: Dexamethasone 4 MG TAB PO SCH ×4 (05:14→23:00)
[2018-03-01] MEDS: Amlodipine 5 MG TAB PO SCH (09:37)
[2018-03-01] MEDS: Potassium Chloride 10 MEQ TAB PO SCH ×2 (09:38→09:45)
[2018-03-01] MEDS: Famotidine 20 MG TAB PO SCH ×2 (09:38→20:23)
[2018-03-01] MEDS: Lisinopril 10 MG TAB PO SCH (09:38)
[2018-03-01] MEDS: Calcitonin,Salmon,Synthetic 200 Units 3.7 ML PUMP L NARE SCH (12:28)
[2018-03-01] MEDS ORDERED: HYDROcodone/Acetaminophen 5/325 mg Tablet PO PRN ×2 (15:31)
--- NOTE | 2018-03-01 15:34 | PDOC.PN ---
- Subjective Encounter Start Date: 03/01/18 Encounter Start Time: 09:00 Feeling better. Her will be here this afternoon and they will meet with Hospice. She has no new complaints. - Objective Resuscitation Status: Resuscitation Status DNR:Do Not Resuscitate Vital Signs & Weight: Vital Signs (12 hours) Temp Pulse Resp BP BP BP Pulse Ox 03/01/18 11:35 97.8 F 77 16 177/88 H 100 03/01/18 09:38 154/70 H 03/01/18 09:37 73 154/70 H 03/01/18 07:53 97.4 F L 73 16 154/70 H 99 03/01/18 04:00 97.8 F 72 16 167/73 H 98 Weight Weight 139 lb 15.896 oz I&O: 02/28/18 03/01/18 03/02/18 06:59 06:59 06:59 Intake Total 1650 1480 Balance 1650 1480 Result Diagrams: 02/28/18 04:58 02/28/18 04:58 Phys Exam - Physical Examination Constitutional: NAD Alopecia. Right eye ptosis. Respiratory: no wheezing, no rales, no rhonchi, clear to auscultation bilateral Cardiovascular: RRR, no significant murmur Gastrointestinal: soft, non-tender, no distention, positive bowel sounds Musculoskeletal: no edema Psychiatric: normal affect, A&O x 3 Dx/Plan (1) Hypercalcemia Code(s): E83.52 - HYPERCALCEMIA Status: Acute Comment: Secondary to multiple bone mets. Fluids, diuresis, decadron, zometa, calcitonin. Normalized. (2) Metabolic encephalopathy Code(s): G93.41 - METABOLIC ENCEPHALOPATHY Status: Acute Comment: Has enlarging brain met and hypercalcemia. Treat the hypercalcemia. Seems to be much better with current treatment. (3) Hypertension Code(s): I10 - ESSENTIAL (PRIMARY) HYPERTENSION Status: Chronic (4) Hypothyroidism Code(s): E03.9 - HYPOTHYROIDISM, UNSPECIFIED Status: Chronic Comment: Stable (5) Metastatic breast carcinoma Code(s): C50.919 - MALIGNANT NEOPLASM OF UNSP SITE OF UNSPECIFIED FEMALE BREAST Status: Chronic Comment: Multiple mets to bone and brain. Suspect liver as well. May be in a palliative care situation. Talked with patient about this. She does understand that she is has incurable disease. Palliative care did meet with her. Plan is to go home tomorrow with hospice. (6) Pancytopenia Code(s): D61.818 - OTHER PANCYTOPENIA Status: Chronic Comment: Continue to monitor. Due to bone marrow invasion by the cancer. Improved after transfusion. She understands that we will not be checking this going forward. (7) Fall Code(s): W19.XXXA - UNSPECIFIED FALL, INITIAL ENCOUNTER Status: Acute Comment: Neuro deficits with brain met. (8) Epistaxis Code(s): R04.0 - EPISTAXIS Status: Acute Comment: Secondary to thrombocytopenia. Resolved. (9) Second degree burn of chest wall Code(s): T21.21XA - BURN OF SECOND DEGREE OF CHEST WALL, INITIAL ENCOUNTER Status: Acute Comment: Minimal. No treatment indicated now. Continue to monitor. - Plan * She is medically stable. Only waiting on her and family to make a decision on disposition. Meeting with Hospice and plan discharge tomorrow when they have what they need set up at home.
[2018-03-01] MEDS: hydrALAZINE 20 MG/ML VIAL SLOW IVP PRN (21:00)
[2018-03-02] MEDS: Dexamethasone 4 MG TAB PO SCH ×2 (05:01→09:56)
[2018-03-02] MEDS: Levothyroxine Sodium 125 MCG TAB PO SCH (05:01)
[2018-03-02 08:59] VITALS: TEMP 97.5
[2018-03-02] MEDS: Amlodipine 5 MG TAB PO SCH (09:56)
[2018-03-02] MEDS: Lisinopril 10 MG TAB PO SCH (09:56)
[2018-03-02] MEDS: Potassium Chloride 10 MEQ TAB PO SCH (09:56)
[2018-03-02] MEDS: Famotidine 20 MG TAB PO SCH (09:56)
[2018-03-02 09:57] VITALS: BP 154/70
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
--- NOTE | 2018-03-07 16:41 | EKG ---
Test Reason : DIZZY Blood Pressure : / mmHG Vent. Rate : 091 BPM Atrial Rate : 091 BPM P-R Int : 128 ms QRS Dur : 082 ms QT Int : 314 ms P-R-T Axes : 000 -08 016 degrees QTc Int : 386 ms Normal sinus rhythm Normal ECG Confirmed by RONY HENRIQUEZ DO ([id number]), editorial intern JERICA ORTIZ ([id number] on 03/07/2018 4:40:42 PM Referred By: Confirmed By:RONY HENRIQUEZ DO
== END 2018-03-02 10:32 | disposition hospice, home (50) | DRG 640 ==
LOC: ERS 16:04 → ONC 20:55
PROVIDERS: ADMIT Internal Medicine; ATTEND Internal Medicine
PROC: 30233R1 Transfusion of Nonautologous Platelets into Peripheral Vein, Percutaneous Approach (ICD-10-PCS; principal; 2018-02-26)
PROC: 30233N1 Transfusion of Nonautologous Red Blood Cells into Peripheral Vein, Percutaneous Approach (ICD-10-PCS; 2018-02-27)
DX: E83.52 Hypercalcemia (principal); G93.41 Metabolic encephalopathy; C79.51 Secondary malignant neoplasm of bone; D61.818 Other pancytopenia; C79.31 Secondary malignant neoplasm of brain; H54.40 Blindness, one eye, unspecified eye; I10 Essential (primary) hypertension; Z90.49 Acquired absence of other specified parts of digestive tract; H02.401 Unspecified ptosis of right eyelid; Z51.5 Encounter for palliative care; C50.919 Malignant neoplasm of unspecified site of unspecified female breast; W19.XXXA Unspecified fall, initial encounter; E03.9 Hypothyroidism, unspecified; R04.0 Epistaxis; T21.21XA Burn of second degree of chest wall, initial encounter; X10.0XXA Contact with hot drinks, initial encounter; Y92.009 Unspecified place in unspecified non-institutional (private) residence as the place of occurrence of the external cause
CPT/HCPCS: 36415; 36430; 70450; 72125; 80048; 80053; 81003; 82140; 82553; 84484; 85025; 86850; 86900; 86901; 93005; 96361; 96365; 96375; A4353; G8978-GP-CJ; G8979-GP-CJ; G8980-GP-CJ; J0360; J1100; J1940; J3489; J7050; J8540; P9016; P9035